=== PATIENT | female | born 1950 | race Caucasian/White ===

== ENCOUNTER 2019-09-02 12:58 | Emergency (ER) | payer MEDICARE, SELFPAY ==
[2019-09-02 13:10] VITALS: BP 129/64; PULSE 66; RESP 16; TEMP 36.2; O2SAT 98
--- NOTE | 2019-09-02 13:23 | ED.URI ---
HPI - URI/Sore Throat General Chief Complaint: Upper Respiratory Infection Stated Complaint: cough/fever Time Seen by Provider: 09/02/19 13:23 Source: patient and RN notes reviewed Mode of arrival: ambulatory Limitations: no limitations History of Present Illness HPI Narrative: 69-year-old female presents with concern for cough. She reports began coughing 5 days ago and had a low-grade fever approximately of 100 degrees 2 to 3 days. Reports coughing fits. She denies current fever, chills, body aches, sweats. Reports mild rhinorrhea and postnasal drainage. Denies sore throat, ear pain, sinus pain, sinus congestion. Denies taking any nimd-qux-bzxlgoh medications. Reports she is currently taking doxycycline 100 mg twice daily for 30 days for an eye infection. MD elicited complaint: cough Related Data Home Medications Medication Instructions Recorded Confirmed alprazolam 09/02/19 difluprednate [Durezol] 09/02/19 doxycycline hyclate 09/02/19 lisinopril 09/02/19 metoprolol succinate PO 09/02/19 trazodone 09/02/19 Allergies Allergy/AdvReac Type Severity Reaction Status Date / Time No Known Allergies Allergy Unverified 02/10/19 09:49 Review of Systems Review of Systems: Narrative: CONSTITUTIONAL: Denies malaise, chills, sweats, or fever. EYES: Denies visual changes, redness, or discharge. ENT: Reports rhinorrhea, postnasal drainage. Denies congestion, sinus pain, otalgia and sore throat. CARDIOVASCULAR: Denies chest pain, palpitations, or edema. RESPIRATORY: Reports cough. Denies dyspnea. GASTROINTESTINAL: Denies abdominal pain, nausea, vomiting, diarrhea SKIN: Denies rash or itching. MUSCULOSKELETAL: Denies myalgia. NEUROLOGIC: Denies headache. All systems reviewed & are unremarkable except as noted in HPI and below [facility] Family History Family History (Updated 06/02/17 @ 15:15 by DOCTOR UNKNOWN) Father Hypertension Cerebrovascular accident Sibling Family history of coronary artery disease Family history of lymphoma Other Diabetes mellitus Family history of arthritis Family history of cardiovascular disease Family history of malignant neoplasm Social History Social History Smoking status: Never smoker Alcohol intake: current Comments At time of signature, agree with nursing past medical, surgical, social and family history. There is no relevant family history pertinent to the presenting complaint Exam Narrative: Exam Narrative: GENERAL: Well-appearing, well-nourished, and in no acute distress. HEAD: Normocephalic EYES: PERRLA, conjunctivae clear ENT: Nares clear, turbinates erythematous, clear discharge. Mucous membranes moist. TM pearly buchanan with dull light reflex bilaterally; no tragal tenderness. Oropharynx not erythematous without lesions. Tonsils not enlarged and without exudate, no drooling, no hoarseness, no trismus. NECK: Supple. No lymphadenopathy CHEST: Clear to auscultation, breath sounds equal. No wheezing, rhonchi, rales, or stridor. No respiratory distress, speaks in full sentences. Cough noted HEART: Regular rate and rhythm. No murmur heard. Normal peripheral pulses. SKIN: Warm, dry, no rash. NEURO: Alert and oriented x3. PSYCH: Normal mood and affect Course Course Emergency Course: Patient is aware of diagnosis, understands and agrees to treatment plan. Anticipatory guidance given. Patient agrees to follow-up as directed and is aware of reasons to seek care at the emergency department. Portions of this record may have been created with voice recognition software Vital Signs Vital signs: Vital Signs Temperature 97.1 F L 09/02/19 13:10 Pulse Rate 66 09/02/19 13:10 Respiratory Rate 16 09/02/19 13:10 Blood Pressure 129/64 09/02/19 13:10 Pulse Oximetry 98 09/02/19 13:10 Temperature 97.1 F L 09/02/19 13:10 Pulse Rate 66 09/02/19 13:10 Respiratory Rate 16 09/02/19 13:10 Blood Pressure 129/64 09/02/19 13:10 Pulse Oximetry 98
== END 2019-09-02 13:41 | disposition home or self-care (01) ==
PROVIDERS: Emergency Provider Nurse Practitioner; PCP Emergency Medicine
DX: J40 Bronchitis, not specified as acute or chronic (principal); I10 Essential (primary) hypertension
CPT/HCPCS: 99213; G0463

== ENCOUNTER 2021-06-19 12:05 | Outpatient (CLI) | payer MEDICARE, SELFPAY ==
--- NOTE | ~2021-06-19 | XR_ITS ---
EXAMINATION: XR chest 2V DATE: 06/19/2021 12:28 INDICATION: Cough, acute bronchitis, COVID four weeks ago TECHNIQUE: PA and lateral views of the chest are obtained. COMPARISON: 09/27/2017 FINDINGS: There are minimal airspace opacities of the lung bases and peripheral aspect of the left up per lung zone. There is no pleural effusion or pneumothorax. The cardiomediastinal silhouette is norm al. There is moderate thoracic spondylosis. IMPRESSION: 1. Minimal airspace opacities of the lung bases and left upper lung zone, possibly pneumonia, acute v ersus resolving. Reviewed, dictated and finalized at location A. D LIFE ASSISTANT IMPRESSION: 1. Minimal airspace opacities of the lung bases and left upper lung zone, possi anika pneumonia, acute versus resolving.
== END 2021-06-19 12:06 | disposition home or self-care (01) ==
LOC: ANHIMG 12:11
PROVIDERS: PCP Emergency Medicine; Visit Provider Emergency Medicine
DX: J20.9 Acute bronchitis, unspecified (principal); R91.8 Other nonspecific abnormal finding of lung field
CPT/HCPCS: 71046

== ENCOUNTER 2021-08-19 11:31 | Emergency (ER) | payer MEDICARE, SELFPAY ==
--- NOTE | ~2021-08-19 | XR_ITS ---
EXAMINATION: XR chest 2V DATE: 08/19/2021 11:54 INDICATION: Shortness of breath. Cough. TECHNIQUE: Frontal and lateral views of the chest were obtained. COMPARISON: Chest 2 views 06/19/21, CT abdomen and pelvis 12/01/2018 FINDINGS: There is no pneumonia, pleural effusion, or pneumothorax. Cardiomegaly is noted. IMPRESSION: 1. Cardiomegaly. Reviewed, dictated and finalized at location A. LED YARN SPOOL STRAIGHTENER IMPRESSION: 1. Cardiomegaly.
[2021-08-19 11:37] VITALS: BP 168/70; PULSE 70; RESP 18; TEMP 36.9; O2SAT 98
--- NOTE | 2021-08-19 11:41 | ED.URI ---
HPI - URI/Sore Throat General Chief Complaint: Upper Respiratory Infection Stated Complaint: COUGH/CONGESTION/SORE THROAT Time Seen by Provider: 08/19/21 11:41 Source: patient Mode of arrival: ambulatory Limitations: no limitations History of Present Illness HPI Narrative: Radha Mendenhall is a 71 yo female with a PMH of HTN, anxiety, [facility] 3 days, runny nose, complaining of fatigue and coughing up yellow mucous. Was vaccinated for COVID; patient had COVID and Covid pneumonia in June Related Data Home Medications Medication Instructions Recorded Confirmed alprazolam 09/02/19 03/26/20 trazodone 09/02/19 03/26/20 Allergies Allergy/AdvReac Type Severity Reaction Status Date / Time lisinopril Allergy Swelling Verified 08/19/21 11:52 of Lip/Tongue/Throat Review of Systems Review of Systems: CONSTITUTIONAL: Denies fever, chills, sweats. EYES: Denies visual changes, redness, discharge. ENT: Denies rhinorrhea, has congestion, sore throat, otalgia. CARDIOVASCULAR: Denies chest pain, palpitations, edema. RESPIRATORY: Denies dyspnea, wheezing,has cough GASTROINTESTINAL: Denies abdominal pain, nausea, vomiting, diarrhea. GENITOURINARY: Denies dysuria, hematuria, abnormal discharge SKIN: Denies rash or itching. NEUROLOGIC: Denies numbness, or focal weakness. PSYCHIATRIC: Denies anxiety or depression. PMFSH Past Medical History Medical History Anxiety Dependence on other enabling machines and devices Essential hypertension KATARINA on CPAP Paroxysmal VT PAT (paroxysmal atrial tachycardia) Family History Family History Father Hypertension Cerebrovascular accident Sibling Family history of coronary artery disease Family history of lymphoma Other Diabetes mellitus Family history of arthritis Family history of cardiovascular disease Family history of malignant neoplasm Social History Social History Smoking status: Never smoker Alcohol intake: current Comments At time of signature, I agree with nursing past medical, surgical, social and family history. There is no relevant family history pertinent to the presenting complaint. Exam Narrative: GENERAL: This is a well-nourished, well-developed patient, in mild distress. HEAD: normocephalic, atraumatic. EYES: Sclera clear/white. Vision is grossly intact. EARS: External ears normal, . Hearing grossly intact. NOSE: External nose normal with nasal discharge, nares without redness, no rhinorrhea. THROAT: Mucous membranes moist, posterior pharynx NECK: Neck supple, non-tender CARDIOVASCULAR:Irregular rate and rhythm without murmurs, gallops, or rubs. RESPIRATORY: Coarse to auscultation. Breath sounds equal bilaterally. No wheezes, rales, or rhonchi. GASTROINTESTINAL: Abdomen soft, non-tender, SKIN: warm, intact with no suspicious lesions or rash, good texture and turgor. NEURO: awake, alert, and oriented to person, place and time. There were no obvious focal neurologic abnormalities. Steady gait EXTREMITIES: Normal range of motion. BACK: Nontender without deformity Course Course Emergency Course: Patient comes with 5 days of cough and that is worsening. She has nasal drainage that she states does not trigger her cough but this morning she woke up with wheezing she has been running which she calls a low-grade fever Chest x-ray shows, cardiomegaly, no pneumonia or pleural effusion or pneumothorax-started on steroids and Tessalon Perles Zithromax codeine cough syrup Level of Care: Express Care Visit Vital Signs Vital signs: Vital Signs Temperature 98.4 F 08/19/21 11:37 Pulse Rate 70 08/19/21 11:37 Respiratory Rate 18 08/19/21 11:37 Blood Pressure 168/70 H 08/19/21 11:37 Pulse Oximetry 98 08/19/21 11:37 Temperature 98.4 F
== END 2021-08-19 12:15 | disposition home or self-care (01) ==
PROVIDERS: Emergency Provider Nurse Practitioner; PCP Emergency Medicine
DX: J40 Bronchitis, not specified as acute or chronic (principal); I10 Essential (primary) hypertension; G47.33 Obstructive sleep apnea (adult) (pediatric); F41.9 Anxiety disorder, unspecified
CPT/HCPCS: 71046; 99213; G0463

== ENCOUNTER 2021-10-28 09:57 | Outpatient (CLI) | payer MEDICARE, SELFPAY ==
--- NOTE | ~2021-10-28 | XR_ITS ---
XR knee LT min 4V DATE: 10/28/2021 11:05 INDICATION: Left knee pain. Osteoarthritis. TECHNIQUE: Standing AP, PA, lateral views. [place] view. COMPARISON: 11/20/2018 knees 10/12/2013 MR left knee FINDINGS: There is moderate loss of height of the medial compartment joint space. There is mild periarticular spurring of the patella. No fracture or dislocation or joint effusion. No periosteal reaction or bone destruction. No radiopaq ue intra-articular loose body or chondrocalcinosis. IMPRESSION: Osteoarthritis at medial and patellofemoral compartments Reviewed, dictated and finalized at location A.
--- NOTE | ~2021-10-28 | XR_ITS ---
EXAMINATION: XR knee RT min 4V DATE: 10/28/2021 11:05 INDICATION: Unspecified osteoarthritis, unspecified site. TECHNIQUE: 4 views of right knee including standing views were obtained. COMPARISON: Right knee radiographs 11/28/2018 FINDINGS: There is varus angulation at the knee. No fracture. There is severe osteoarthritis of media l and patellofemoral compartments and mild osteoarthritis of lateral compartment. There is a moderate -sized knee joint effusion. IMPRESSION: 1. Severe right knee osteoarthritis. 2. Moderate-sized knee joint effusion. Reviewed, dictated and finalized at location A.
--- NOTE | ~2021-10-28 | XR_ITS ---
EXAMINATION: HAND-JUDY ARTHRITIS 3+VIEWS DATE: 10/28/2021 11:05 INDICATION: unspecified osteoarthritis at unspecified site TECHNIQUE: Posteroanterior, lateral, and oblique views of the left and of the right hands as well as a ballcatchers view of both hands were obtained. COMPARISON: 02/22/2008 FINDINGS: Normal alignment at the bilateral hands and wrists. No fracture. Relative symmetric pattern of polyar ticular osteoarthritis, severe at the bilateral first carpometacarpal joints and mild at the wrist, t riscaphe and multiple interphalangeal joints. IMPRESSION: 1. Polyarticular osteoarthritis at the bilateral hands and wrists, severe at the first carpometacarpa l joints and otherwise mild. Reviewed, dictated and finalized at location B. IMPRESSION: 1. Polyarticular osteoarthritis at the bilateral hands and wrists, severe at th e first carpometacarpal joints and otherwise mild.
--- NOTE | ~2021-10-28 | XR_ITS ---
EXAMINATION: XR sacroiliac joints min 3V DATE: 10/28/2021 11:05 INDICATION: Unspecified osteoarthritis at unspecified site. TECHNIQUE: AP and left and right oblique views of the sacroiliac joints were normal. COMPARISON: CT dated 12/01/2018 FINDINGS: Alignment is normal. Mild osteoarthritis at the bilateral sacroiliac joints. A few phleboli ths in the right hemipelvis. Moderate lower lumbar spondylosis. IMPRESSION: 1. Mild bilateral sacroiliac osteoarthritis. Reviewed, dictated and finalized at location B.
--- NOTE | ~2021-10-28 | XR_ITS ---
EXAMINATION: XR lumbar spine min 4V DATE: 10/28/2021 11:05 INDICATION: Unspecified osteoarthritis TECHNIQUE: Anteroposterior, lateral, and bilateral oblique views of the lumbar spine, and cone-down l ateral view of the lumbosacral junction were obtained. COMPARISON: 05/17/2016 FINDINGS: Lumbar dextroscoliosis is noted. There is no fracture. Bone alignment is normal. The verteb ral body heights are maintained. There is mild loss of intervertebral disc space height at L5-S1. Sev ere facet osteoarthritis is present throughout the lumbar spine. IMPRESSION: 1. Severe multilevel facet osteoarthritis. Reviewed, dictated and finalized at location F.
== END 2021-10-28 09:58 | disposition home or self-care (01) ==
LOC: ANHIMG 09:59
PROVIDERS: PCP Emergency Medicine; Visit Provider Internal Medicine
DX: M19.032 Primary osteoarthritis, left wrist (principal); Z71.89 Other specified counseling; Z51.81 Encounter for therapeutic drug level monitoring; Z79.899 Other long term (current) drug therapy; M19.031 Primary osteoarthritis, right wrist; M19.042 Primary osteoarthritis, left hand; M19.041 Primary osteoarthritis, right hand; M47.817 Spondylosis without myelopathy or radiculopathy, lumbosacral region; M25.461 Effusion, right knee; M17.11 Unilateral primary osteoarthritis, right knee
CPT/HCPCS: 72110; 72202; 73130; 73564

== ENCOUNTER 2022-02-22 09:59 | Outpatient (CLI) | payer MEDICARE, SELFPAY ==
--- NOTE | 2022-02-22 11:05 | ECG_ITS ---
Measurements Intervals [place] Rate: 58 P: 37 NH: 140 QRS: 12 QRSD: 90 T: 40 QT: 419 QTc: 412 Interpretive Statements SINUS BRADYCARDIA BASELINE ARTIFACT BORDERLINE ECG COMPARED TO ECG 10/28/2018 19:19:08 SINUS BRADYCARDIA NOW PRESENT Electronically Signed On 02-22-2022 16:29:13 CDT by Gonzales Prado M.D.
[2022-02-22 11:34] LABS: Basophils Percent Auto 0.7 % (0.2-1.2); Eosinophils Absolute Auto 0.2 K/mm3 (0-0.3); Eosinophils Percent Auto 3.6 % (0-4.4); Hemoglobin 13.5 g/dL (12.0-15.0); Immature Granulocyte Absolute 0.01 K/mm3 (0.00-0.031); Immature Granulocyte Percent A 0.2 % (0-0.5); Lymphocytes Absolute Auto 1.17 K/mm3 (0.9-3.2); Mean Corpuscular HGB Conc 31.4 g/dl (32-36); Mean Corpuscular Hemoglobin 27.3 pg (26-34); Mean Platelet Volume 9.8 fl (7.4-10.4); Monocytes Absolute Auto 0.6 K/mm3 (0.1-0.6); Monocytes Percent Auto 10.2 % (2.6-8.5); Neutrophils Absolute Auto 3.6 K/mm3 (1.3-6.7); Neutrophils Percent Auto 64.3 % (45.5-73.1); Platelet Count Result 277 k/mm3 (150-375); Red Blood Count 4.94 M/mm3 (4.2-5.4); Red Cell Distribution Width 13.5 % (11.5-14.5); White Blood Count 5.6 K/mm3 (4.5-10.0)
[2022-02-22 11:39] LABS: Add Urine Microscopic? YES; Appearance Urine Clear (Clear); Bilirubin Urine Negative (Negative); Blood Urine Trace-Intact (Negative); Color Urine Yellow (Yellow); Glucose Urine UA Negative (Negative); Ketones Urine Negative (Negative); Leukocyte Esterase Ur Negative LEU/UL (Negative); Nitrate Urine Negative (Negative); Protein Urine Negative (Negative); pH Urine 6.5 (5.0-9.0)
[2022-02-22 11:42] LABS: INR 1.1; Prothrombin Time 13.9 Seconds (11.1-14.7)
[2022-02-22 11:43] LABS: Albumin Level 4.4 g/dL (3.5-5.1); Anion Gap 7 mmol/L (8-16); Blood Urea Nitrogen 13 mg/dL (7-17); Carbon Dioxide 30 mmol/L (22-30); Chloride 103 mmol/L (98-107); Estimated Glomerular Filt Rate > 60; Glucose 100 mg/dL (65-110); Sodium 140 mmol/L (137-145)
[2022-02-22 11:46] LABS: Urine Cotinine NEGATIVE
[2022-02-22 11:54] LABS: Mucus Urine Rare /lpf; Squamous Epithelial Cell Urine Rare /hpf (Few); WBC Urine 0-3 /hpf
[2022-02-22 12:09] LABS: Hemoglobin A1C 5.5 % (<5.7)
== END 2022-02-22 10:00 | disposition home or self-care (01) ==
LOC: ANHSURGERY 10:04
PROVIDERS: PCP Emergency Medicine; Visit Provider Orthopaedic Surgery
DX: M17.11 Unilateral primary osteoarthritis, right knee (principal); Z01.818 Encounter for other preprocedural examination; R00.1 Bradycardia, unspecified
CPT/HCPCS: 80048; 80307; 81001; 82040; 83036; 85025; 85610; 85730; 86850; 86900; 86901; 87081; 93005

== ENCOUNTER 2022-03-02 10:02 | Outpatient (CLI) | payer MEDICARE, SELFPAY ==
--- NOTE | ~2022-03-02 | NM_ITS ---
EXAMINATION: NM francois stress w perfusion DATE: 03/02/2022 12:31 INDICATION: Dyspnea on exertion. Preoperative evaluation prior to knee surgery. TECHNIQUE: Rest images were obtained following intravenous administration of 10.6 mCi Tc99m tetrofosm in (Myoview). The patient was infused intravenously with Lexiscan (Regadenoson). Then, 32.7 mCi Tc99m tetrofosmin (Myoview) was administered intravenously, and stress images were obtained. Data was nehal nstructed into short axis and horizontal and vertical long axis SPECT images. Gated SPECT images were also obtained. COMPARISON: None. FINDINGS: There is no definite reversible or fixed perfusion abnormality to suggest ischemia or infar ction. There is normal left ventricular chamber size, wall motion and ejection fraction. Left ventr icular ejection fraction measures >70%. IMPRESSION: 1. Normal myocardial perfusion at rest and during stress. 2. Left ventricular ejection fraction measuring >70%. Reviewed, dictated and finalized at location A.
--- NOTE | 2022-03-02 10:05 | EST_ITS ---
Patient Info Name: Radha Mendenhall Age: 71 years : 1950 Gender: Female Ht: 66 in Wt: 250 lbs BSA: 2.35 m2 Exam Date: 03/02/2022 11:21 AM Exam Location: [facility] Stress Patient Status: Outpatient Admit Date: 03/02/2022 Staff Ordering Physician: Toñito Madsen DO Attending Provider: Toñito Madsen DO Exercise Technologist: Cristina Alegre RDCS Exercise Physician: Toñito Madsen DO Exam Type: CA stress francois w NM Study Info Indications R06.9 - Unspecified abnormalities of breathing A regadenoson stress test was performed. Summary 1. 1. Negative lexiscan stress test for ischemic ST changes by ECG criteria. 2. 2. Stable hemodynamics throughout the test. 3. 3. Nuclear scan to follow and will be reported separately. Please correlate with it. 4. 4. Patient informed of the above results. Protocol: Lexiscan Stress ECG Details Stage: REST Duration (min): 0 min : 55 sec HR (bpm): 58 SBP (mmHg): 137 DBP (mmHg): 75 Stage: REST Duration (min): 9 min : 58 sec HR (bpm): 59 SBP (mmHg): 137 DBP (mmHg): 75 Stage: STAGE 1 Duration (min): 0 min : 59 sec HR (bpm): 65 SBP (mmHg): 133 DBP (mmHg): 84 Stage: RECOVERY Duration (min): 1 min : 0 sec HR (bpm): 72 SBP (mmHg): 132 DBP (mmHg): 82 Stage: RECOVERY Duration (min): 2 min : 0 sec HR (bpm): 69 SBP (mmHg): 132 DBP (mmHg): 82 Stage: RECOVERY Duration (min): 3 min : 0 sec HR (bpm): 66 SBP (mmHg): 133 DBP (mmHg): 80 Stage: RECOVERY Duration (min): 3 min : 6 sec HR (bpm): 65 SBP (mmHg): 133 DBP (mmHg): 80 Rest HR: 59 bpm Peak HR: 72 bpm Rest Sys BP: 137 mmHg Peak Sys BP: 133 mmHg Max Pred HR: 151 bpm % Max Pred HR: 48 % Target HR: 128 bpm Max RPP: 9,576 bpm*mmHg Total Time: 1 min : 0 sec Rest Joseph BP: 75 mmHg Peak Joseph BP: 84 mmHg Total Dose: 0.4 mg Resting ECG Sinus bradycardia. Stress ECG No ST changes. Arrhythmias None. Report Signatures
== END 2022-03-02 10:03 | disposition home or self-care (01) ==
PROVIDERS: PCP Emergency Medicine; Visit Provider Internal Medicine Cardiovascular Disease
DX: R06.09 Other forms of dyspnea (principal)
CPT/HCPCS: 78452; 93017; A9502; J2785

== ENCOUNTER 2022-03-03 01:04 | Day surgery (SDC) | payer MEDICARE, SELFPAY ==
[2022-02-22 10:12] VITALS: BMI 39.0
--- NOTE | 2022-02-22 10:49 | PC.NURSE ---
Report to the Outpatient Waiting Room, entrance under the green pavilion located off [facility], at time _0600 on date __03/03/22 . OR Time: ___729 . - You and your visitor will be asked to self-screen and do not enter if you have any COVID symptoms. - Only one visitor and NO children visitors are allowed at this time. - The patient visitor is requested to leave or wait in car when not with patient due to restrictions. - A mask is required within the hospital. Patients may have clear liquids (water, carbonated beverages, clear teas, apple juice) until 3 hours prior to surgery with a maximum of 20 ounces. - No food from midnight until time of surgery - Infants may have breast milk until 4 hours before surgery, infant formula 6 hours prior to surgery. - Children will be allowed to drink immediately following surgery. If applicable, please bring a bottle or sippy cup to assist with drinking. Juice, water, soda, and popsicles are readily available. For infants on formula, please bring formula the day of surgery. Pacifiers are allowed. Take the following medications with a SIP of water the morning of surgery: __DULOXETINE Medications to discontinue per physician ___ALL VITAMINS AND SUPPLEMENTS 3 DAYS PRE OP Date to take last dose_02/27/22 Please no make-up, nail yakut, hairspray, perfume, deodorant, or body powder the day of surgery. No jewelry (including any body piercings) or valuables the day of surgery, leave them at home. Please take a shower or bath the night before, or the morning of, surgery with an antibacterial soap. Wear comfortable, loose fitting clothing. Children are encouraged to wear pajamas. - Jewelry must be removed prior to entering the operating room. Rings and piercings that are not removed may be cut off. - The hospital will not accept responsibility for valuables. - Please leave all valuables, including medications, at home the day of surgery. If you are going home after surgery, a licensed special education bus driver must drive you home. - NO public transportation without another adult. - We recommend that an adult stay with you for 24 hours following discharge. - We also recommend that you do not drive, make important decision, drink alcoholic beverages, or take any drugs that were not prescribed by your health care provider for at least 24 hours after your discharge time. For Pediatric surgeries, we recommend two adults accompany the child home (only one inside the building at this time). Follow any additional instructions given to you from your surgeon. If you or anyone in your household have experienced Covid symptoms in the past week, please notify your surgeon or the nurse liaison at the phone number below for possible testing. VERBAL AND WRITTEN instructions given to __PATIENT and asked if any additional questions and then verbalized understanding. Patient advised to call surgeon office or pre surgery nurse liaison [phone] if any additional questions.
[2022-02-22 11:08] VITALS: BP 167/81; PULSE 58; RESP 18; TEMP 37.3; O2SAT 97
[2022-03-03] VITALS (20 sets, daily range): BP systolic 108–153; BP diastolic 49–74; PULSE 63–75; RESP 12–20; TEMP 36.2–36.8; O2SAT 94–99
--- NOTE | ~2022-03-03 | XR_ITS ---
EXAMINATION: XR knee RT 2V DATE: 03/03/2022 10:48 INDICATION: Right knee arthroplasty. Postop. TECHNIQUE: 2 views of right knee were obtained. COMPARISON: Right knee radiographs 10/28/2021 FINDINGS: There is a total right knee arthroplasty without patellar resurfacing in near-anatomic alig nment. No fracture. There is gas in the knee joint and soft tissues, consistent with recent surgery. Anterior skin zuri are noted. IMPRESSION: 1. Total right knee arthroplasty in near-anatomic alignment. Reviewed, dictated and finalized at location A.
[2022-03-03] MEDS: ACETAMINOPHEN 500 MG TABLET 1000 MG PO (06:43)
[2022-03-03] MEDS: LACTATED RINGERS 1,000 ML 30 ML IV CONT ×2 (06:45→10:34)
[2022-03-03] MEDS: TRANEXAMIC ACID 1,000MG/ISO100 1,000 MG/100 ML BAG 200 MG IVPB (06:55)
--- NOTE | 2022-03-03 07:10 | WPDANESEPPF ---
Anes - Initial Pre Proc Eval Procedure: Operation Date: 03/03/22 07:30 Proposed Procedures p Right Total Knee Arthroplasty - Fabien Antoine MD Date/Time: 03/03/22 07:10 Surgeon: Fabien Antoine MD Pre Op Diagnosis: right knee DJD Patient Data Age: 71 Gender: F Height: 1.7 m Weight: 113.1 kg Last Vital Signs Temp 37.3 C 02/22/22 11:08 Pulse 58 L 02/22/22 11:08 Resp 18 02/22/22 11:08 BP 167/81 H 02/22/22 11:08 Pulse Ox 97 02/22/22 11:08 O2 Del Method Room Air 02/22/22 11:08 Allergies Allergy/AdvReac Type Severity Reaction Status Date / Time latex Allergy Itching Verified 02/24/22 14:52 AND RASH lisinopril Allergy Swelling Verified 02/24/22 14:52 of Lip/Tongue/Throat Home Medications Medication Instructions Recorded Confirmed Type trazodone 150 mg tablet 150 mg PO PRN PRN Insomnia 09/02/19 02/24/22 History metoprolol succinate 25 mg See Rx Instructions .Route 09/28/21 02/24/22 Rx tablet,extended release 24 hr .COMPLEX #90 tabs duloxetine 60 mg capsule,delayed 60 mg PO BID #180 caps 10/29/21 02/24/22 Rx release ascorbic acid (vitamin C) 500 mg 500 mg PO DAILY 02/22/22 02/24/22 History tablet cetirizine 10 mg tablet 10 mg PO DAILY 02/22/22 02/24/22 History ergocalciferol (vitamin D2) 1,250 50,000 unit PO WEEKLY 02/22/22 02/24/22 History mcg (50,000 unit) capsule multivitamin 1 tablet PO DAILY 02/22/22 02/24/22 History chlorhexidine gluconate 4 % 1 applic topical ONCE #237 mL 02/24/22 02/24/22 Rx topical liquid (Hibiclens) Patient hx anesthesia problems: none Family hx anesthesia problems: none Results Review: All pre-operative results and documents have been reviewed as part of the pre-operative evaluation. [facility] Past Medical History Medical History Anxiety CRP elevated Dependence on other enabling machines and devices Essential hypertension Generalized osteoarthritis of multiple sites Inflammatory arthritis (~2019) KATARINA on CPAP Paroxysmal VT PAT (paroxysmal atrial tachycardia) Family History Family History Father Hypertension Cerebrovascular accident Sibling Family history of coronary artery disease Family history of lymphoma Other Diabetes mellitus Family history of arthritis Family history of cardiovascular disease Family history of malignant neoplasm Social History Social History Smoking status: Never smoker Additional smoking assessment comments: DENIES ANY FORM OF TOBACCO USE Alcohol intake: current Drinks per week: 1 Alcohol use details: wine, 3 times a week Living arrangements: with family Spiritual care concerns: No Anes - Eval Final PreProcedure Day of Procedure 03/03/22 07:10 Patient weight: obese Heart: regular rate and rhythm Lungs: clear to auscultation Airway: Mallampati scale class II Neurological: alert and oriented Last oral intake: >/= 8 hours ASA classification: III Emergent: no Anesthetic plan: proceed Anesthesia type and monitoring: general LMA and standard monitoring Results Review: All pre-operative results and documents have been reviewed as part of the pre-operative evaluation. Informed Consent: The patient's anesthetic plan and its attendant risks and benefits were discussed with the patient/family/POA. Questions were solicited and answers provided to the satisfaction of the patient/family/POA.
--- NOTE | 2022-03-03 07:32 | WPDHPUPDATE1 ---
History and Physical Update Update Date/Time: 03/03/22 07:32 History and Physical has been reviewed, including an updated exam of the patient. There are NO changes in the patient's condition. Risks, benefits, and alternatives have been discussed and questions answered. Patient agrees to proceed with procedure.
[2022-03-03] MEDS: ceFAZolin 2 GM/D5W 50 ML 2 GM/50 ML BAG IVPB ×3 (07:45→23:40)
--- NOTE | 2022-03-03 08:26 | WPDANESPNB ---
Anes - Peripheral Nerve Block Date/Time: 03/03/22 08:26 I have discussed with the patient/family/POA the placement of a peripheral nerve block for post-operative pain management, including associated risks, benefits, complications, and side effects. Alternative methods of post-operative analgesia were detailed. Questions were solicited and answers provided to the satisfaction of the patient/family/POA. Time-Out: A pre-procedural Time-Out was completed immediately before starting the procedure and confirmed: Patient Identification, Site, Procedure, Patient Position and the Availability of Requisite Equipment. Clinical Indications: Acute post-operative pain management requested by the operative surgeon. Nerve Block Insertion Note Anes-nerve block: adductor canal right Patient position: supine Skin prep: chlorhexidine Needle: 22 gauge, stimulating, insulated echogenic needle. Needle length: 80 mm Technique: ultrasound Technique comment: mid 2mg [id number] Injectate: bupivacaine 0.5% with epi 5 mcg/ml (30ml no epi) and dexamethasone (mg) (4) Observations: tolerated well Complications: none Procedure start time:: 737 Procedure end time:: 742
--- NOTE | 2022-03-03 09:16 | SUR.OPER ---
Multiple scabs noted to patient's bilateral lower legs, back, and right buttock in pre-op. Patient states these scabs are from flea bites and she has been treated with topical Bactroban. Dr. Antoine examined patient's scabs and okay to proceed. Vanc was ordered and given in OR.
[2022-03-03] MEDS: TRANEXAMIC ACID 1,000 MG/10 ML AMPUL 1000 MG IV PUSH (09:28)
--- NOTE | 2022-03-03 10:43 | W.PM.PROC2 ---
Procedure Note - Detailed Date of Procedure 03/03/22 Pre-op Diagnosis right knee DJD Post-op Diagnosis Same Procedure Performed R TKA Surgeon Fabien Antoine MD Anesthesia General Description of Procedure THE RIGHT KNEE WAS PREPPED AND DRAPED IN THE STERILE FASHION. THERE WAS A 10 DEGREE FLEXION CONTRACTURE. A MIDLINE SKIN INCISION WAS MADE. A MEDIAL PARAPATELLAR ARTHROTOMY WAS MADE. THE PATELLA WAS EVERTED. THERE WAS TRICOMPARTMENT DJD. THERE WAS MINIMAL PATELLA DJD. AN INTRAMEDULLARY HEENA WAS PLACED IN THE FEMUR. A DISTAL FEMORAL CUT WAS MADE IN 5 DEGREES OF VALGUS REMOVING APPROXIMATELY 9 MM OF BONE FROM THE DISTAL FEMUR. THE FEMUR WAS SIZED TO 65. A 65 FEMORAL CUTTING BLOCK WAS PLACED IN 3 DEGREES OF EXTERNAL ROTATION AND IN ALIGNMENT WITH SHRUTHI'S LINE AND THE TRANSEPICONDYLAR AXIS. ANTERIOR POSTERIOR AND CHAMFER CUTS WERE MADE. THE CUTS WERE EXCELLENT. NEXT AN INTRAMEDULLARY CUTTING GUIDE WAS PLACED IN THE TIBIA. A TRANS TIBIAL CUT WAS MADE ALONG THE LONG AXIS OF THE TIBIA. APPROXIMATELY 10 MM OF BONE WAS REMOVED FROM THE HIGH SIDE OF THE TIBIA. THE TIBIA WAS THEN PLANED TO A SMOOTH SURFACE. POSTERIOR FEMORAL OSTEOPHYTES WERE REMOVED FROM THE FEMORAL CONDYLES. A 71 TIBIAL TRIAL WAS PLACED IN ALIGNMENT WITH THE 1/3 MEDIAL ASPECT OF THE TIBIAL TUBERCLE. THEN A 65 FEMORAL TRIAL COMPONENT WAS PLACED. BOTH HAD EXCELLENT FITS. EVENTUALLY A 10 MM CR POLYETHYLENE TRIAL COMPONENT WAS PLACED. THE KNEE WAS TAKEN THROUGH A RANGE OF MOTION. THE KNEE CAME OUT TO FULL EXTENSION. THERE WAS NO ABNORMAL TILT TO THE PATELLA. THERE WAS GOOD A/P AND VARUS/VALGUS STABILITY. THERE WAS NO EXCESSIVE ROLL BACK WITH FLEXION. THE TRIAL COMPONENTS WERE REMOVED. THEN A 65 FEMORAL COMPONENT AND 71 TIBIAL COMPONENT WITH A 14 CR POLYETHYLENE COMPONENT WERE CEMENTED INTO PLACE. ONCE THE CEMENT WAS HARD THE KNEE WAS TAKEN THROUGH A ROM AGAIN AND FOUND TO BE STABLE WITH NO PATELLA TILT NO EXCESSIVE ROLL BACK WITH FLEXION AND GOOD STABILITY WITH COMPLETE AND FULL EXTENSION. THE KNEE WAS IRRIGATED WITH STERILE BETADINE AND WATER FOR ABOUT 3 MINUTES. THE BLEEDERS WERE CAUTERIZED. THE ARTHROTOMY WAS REPAIRED WITH NUMBER 1 VICRYL. THE SUB CUTANEOUS LAYER WITH 2-0 VICRYL AND THE SKIN WITH AWA. THE WOUND WAS WASHED AND A STERILE DRESSING WAS APPLIED. PATIENT WAS EXTUBATED. Estimated Blood Loss -250.0 Pathology None sent Complications No immediate complications Condition Stable Disposition PACU
[2022-03-03] MEDS: KETOROLAC 15 MG/ML VIAL (*BKC) IV PUSH ×3 (14:08→23:41)
[2022-03-03] MEDS: SODIUM CHLORIDE 0.9% IV 1,000 ML 125 ML IV CONT (14:08)
[2022-03-03] MEDS: METOPROLOL SUCCINATE EXT REL 25 MG TABCR BY MOUTH (14:09)
--- NOTE | 2022-03-03 14:26 | ADMGEN ---
This patient, Radha Mendenhall, was admitted to Medical Room 260-. Patient/family oriented to hospital policies and general routines including ID bracelet, bed and alarms, visiting hours, pain management, procedures, bathroom and other care routines, personal items, smoking policy, room service/diet, and visiting hours. Information on how to activate the Rapid Response Team has been discussed. Patient/Family are encouraged to report perceived risks to care and to ask questions if they do not understand what they are told or what they should do.
[2022-03-03] MEDS: SENNA/DOCUSATE SODIUM TABLET 2 TAB PO (16:54)
[2022-03-03] MEDS: ASPIRIN 325 MG ENTERIC TABLET PO (19:47)
[2022-03-04 03:33] VITALS: BP 131/66; PULSE 73; RESP 18; TEMP 36.7; O2SAT 95
[2022-03-04] MEDS: KETOROLAC 15 MG/ML VIAL (*BKC) IV PUSH ×2 (05:15→12:14)
[2022-03-04 05:33] LABS: Basophils Percent Auto 0.2 % (0.2-1.2); Hematocrit 33.9 % (37.0-47.0); Hemoglobin 10.6 g/dL (12.0-15.0); Immature Granulocyte Absolute 0.08 K/mm3 (0.00-0.031); Immature Granulocyte Percent A 0.6 % (0-0.5); Lymphocytes Absolute Auto 1.11 K/mm3 (0.9-3.2); Lymphocytes Percent Auto 8.6 % (18.3-44.2); Mean Corpuscular HGB Conc 31.3 g/dl (32-36); Mean Corpuscular Hemoglobin 27.5 pg (26-34); Mean Corpuscular Volume 87.8 fl (80-100); Monocytes Absolute Auto 1.1 K/mm3 (0.1-0.6); Monocytes Percent Auto 8.7 % (2.6-8.5); Neutrophils Absolute Auto 10.5 K/mm3 (1.3-6.7); Neutrophils Percent Auto 81.9 % (45.5-73.1); Platelet Count Result 234 k/mm3 (150-375); Red Blood Count 3.86 M/mm3 (4.2-5.4); Red Cell Distribution Width 13.2 % (11.5-14.5); White Blood Count 12.9 K/mm3 (4.5-10.0)
[2022-03-04 05:46] LABS: Anion Gap 7 mmol/L (8-16); Blood Urea Nitrogen 14 mg/dL (7-17); Calcium 8.7 mg/dL (8.4-10.2); Carbon Dioxide 30 mmol/L (22-30); Chloride 101 mmol/L (98-107); Estimated CRCL calculation 75 ml/min; Estimated Glomerular Filt Rate > 60; Glucose 111 mg/dL (65-110); Potassium 4.6 mmol/L (3.4-5.0); Sodium 138 mmol/L (137-145)
[2022-03-04 07:23] VITALS: BP 136/54; PULSE 77; RESP 18; TEMP 36.2; O2SAT 95
[2022-03-04] MEDS: ceFAZolin 2 GM/D5W 50 ML 2 GM/50 ML BAG IVPB (08:06)
[2022-03-04] MEDS: ASPIRIN 325 MG ENTERIC TABLET PO (08:10)
[2022-03-04] MEDS: DULoxetine HCL 60 MG CAPSULE.DR PO (08:11)
[2022-03-04] MEDS: SENNA/DOCUSATE SODIUM TABLET 2 TAB PO (08:11)
[2022-03-04] MEDS: LORATADINE 10 MG TABLET PO (08:11)
[2022-03-04 08:12] VITALS: PULSE 70
[2022-03-04] MEDS: MULTIVITAMINS THERAPEUTIC TAB (*BKC) 1 TABLET PO (08:12)
[2022-03-04] MEDS: METOPROLOL SUCCINATE EXT REL 25 MG TABCR BY MOUTH (08:12)
[2022-03-04] MEDS: polyethylene glycoL 3350 17 GM POWD.PACK PO (08:13)
--- NOTE | 2022-03-04 08:15 | WPDANESPN ---
Anes - Prog Note Post-Op Date/Time: 03/04/22 08:15 Cardiovascular status: normal Respiratory status: normal Airway patency: baseline Mental status: baseline Post-Op hydration status: normal Vital Signs: Last Vital Signs Temp 36.2 C L 03/04/22 07:23 Pulse 70 03/04/22 08:12 Resp 18 03/04/22 07:23 BP 136/54 L 03/04/22 07:23 Pulse Ox 95 03/04/22 07:23 O2 Del Method Room Air 03/03/22 20:00 O2 Flow Rate 1 03/03/22 15:22 Pain Score (VAS): 3/10, but well controlled with medication I/O: Intake & Output 03/03/22 03/04/22 03/04/22 23:59 07:59 15:59 Intake Total 50 1600 Output Total 0 Balance 50 1600 Laboratory Tests 03/04/22 05:15 03/04/22 05:15 03/04/22 03/04/22 05:15 05:15 WBC 12.9 H RBC 3.86 L Hgb 10.6 L Hct 33.9 L MCV 87.8 MCH 27.5 MCHC 31.3 L RDW 13.2 Plt Count 234 MPV 10.0 Immature Gran % (Auto) 0.6 H Neut % (Auto) 81.9 H Lymph % (Auto) 8.6 L [place] % (Auto) 8.7 H Eos % (Auto) 0.0 Baso % (Auto) 0.2 Lymph # (Auto) 1.11 [place] # (Auto) 1.1 H Eos # (Auto) 0.0 Baso # (Auto) 0.0 Abs Immat Gran (auto) 0.08 H Absolute Neuts (auto) 10.5 H Absolute Nucleated RBC 0.0 Nucleated RBC % 0.0 Sodium 138 Potassium 4.6 Chloride 101 Carbon Dioxide 30 Anion Gap 7 L BUN 14 Creatinine 0.80 Estim Creat Clear Calc 75 Estimated GFR > 60 Glucose 111 H Calcium 8.7 Post-procedural complaints: none Patient Feedback: Patient satisfied with anesthetic care.
--- NOTE | 2022-03-04 10:09 | PM.PNORT ---
Progress Note: A&P Assessment and Plan (1) S/P total knee arthroplasty: Code(s): Z96.659 - Presence of unspecified artificial knee joint Status: Acute Assessment and Plan: POD #1 : R TKA Continue PT/OT. WBAT. Walker. HIGH FALL RISK. Continue pain control. Ice knee. Protect skin. DVT prophylaxis with Aspirin. SCDs. Incentive Spirometry Use reviewed. Monitor Dressing. Change prior to discharge. Bowel Regimen. Dispo: Home with Home Health pending progress with PT/OT Subjective Subjective Date/Time Seen: 03/04/22 10:09 Post Op day: 1 Principal diagnosis: RIGHT KNEE DJD Interval history: POD #1: Right TKA Patient doing very well. Pain well controlled. No new concerns. Hopeful for discharge home today pending progress with PT/OT. Review of Systems Review of Systems: All systems reviewed & are unremarkable except as noted in HPI and below Constitutional: Constitutional: Denies fever(s) and Denies headache(s) ENT: Denies headache(s) Cardiovascular: Cardiovascular: Denies chest pain, Denies diaphoresis, Denies palpitations and Denies dyspnea Respiratory: Respiratory: Denies dyspnea Gastrointestinal: Gastrointestinal: Denies abdominal pain, Denies constipation, Denies nausea and Denies vomiting Genitourinary: Genitourinary: Reports nocturia and Denies dysuria Musculoskeletal: Musculoskeletal: Reports arthralgias (Right Knee ) and Reports joint swelling (Right Knee ) Neurologic: Denies headache(s) Endocrine: Endocrine: Denies palpitations Exam Const: General: comfortable and no acute distress Resp: Effort & Inspection: normal respiratory effort Cardio: Rate: regular rate Rhythm: regular rhythm GI: GI Palp: Yes Soft to palpation, No Tenderness to palpation present (GI) and No Guarding due to palpation present (GI) Skin: Wounds: wounds noted Other: Incision c/d/i. No surrounding redness/warmth. No hematoma. Mild ecchymosis. No wound dehiscence Neuro: Cognition (Neuro): normal cognition Other: NV intact aside from block. Moves toes. Sensation intact to light touch. +ankle dorsiflexion/plantarflexion. Extrem: Right lower extremity: normal to inspection, knee Details: tenderness (diffuse, mild ) Location: of the patella, swelling (diffuse, consistent with surgical intervention ), abnormal ROM Details: pain with active ROM during, pain with passive ROM during and with range as follows (limited due to recent surgical intervention ); able to extend lower leg actively and ecchymosis (mild ), lower leg (Negative Cristhian's Sign ) Details: normal to inspection; no erythema and no tenderness, ankle (+ankle dorsiflexion/plantarflexion ) Details: normal to inspection, no edema and normal ROM; no tenderness, no swelling and no ecchymosis and foot Details: normal capillary refill, normal to inspection, vascular exam Details: dorsalis pedis pulse present and motor-sensory exam Details: light-touch normal; no tenderness Left lower extremity: normal to inspection Psych: Mental Status: mental status grossly normal Objective Data Vital Signs Vital Signs: Vital Signs - 24 hr 03/03/22 10:34 03/03/22 10:50 03/03/22 11:05 Temperature 36.7 C Pulse Rate 73 70 74 Respiratory Rate 14 12 12 Blood Pressure 127/59 L 116/55 L 124/67 Pulse Oximetry 97 99 99 Oxygen Delivery Simple Face Mask Simple Face Mask Simple Face Mask Oxygen Flow Rate 10 10 10 03/03/22 11:20 03/03/22 11:35 03/03/22 11:50 Temperature Pulse Rate 75 67 70 Respiratory Rate 16 14 14 Blood Pressure 132/68 132/65 111/64 Pulse Oximetry 99 99 98 Oxygen Delivery Simple Face Mask Nasal Cannula Nasal Cannula Oxygen Flow Rate 5 3 3 03/03/22 12:05 03/03/22 12:20 03/03/22 12:35 Temperature Pulse Rate 74 64 65 Respiratory Rate 16 14 18 Blood Pressure 125/66 121/73 121/63 Pulse Oximetry 97 99 99 Oxygen Delivery Nasal Cannula Nasal Cannula Nasal Cannula Oxygen Flow Rate 3 3 3 03/03/22 12:50 03/03/22 13:05 03/03/22
[2022-03-04 11:07] VITALS: BP 134/60; PULSE 67; RESP 18; TEMP 36.9; O2SAT 97
--- NOTE | 2022-03-04 15:40 | PM.DS ---
DS: Admitting Diagnosis Discharge Date 03/04/22 Admitting Diagnosis 03/03/22 DS: Discharge Diagnosis Discharge Diagnosis (1) S/P total knee arthroplasty: Code(s): Z96.659 - Presence of unspecified artificial knee joint Status: Acute Assessment and Plan: POD #1 : R TKA Continue PT/OT. WBAT. Walker. HIGH FALL RISK. Continue pain control. Ice knee. Protect skin. DVT prophylaxis with Aspirin. SCDs. Incentive Spirometry Use reviewed. Monitor Dressing. Change prior to discharge. Bowel Regimen. Dispo: Home with Home Health pending progress with PT/OT DS: Summary Hospital Course Reason for hospitalization: Right Knee DJD Hospital Course: 71-year-old female admitted status post right total knee arthroplasty for postoperative medical management, pain control and mobilization with physical and occupational therapy. Patient progressed very well on postop day 1. Pain well controlled. She has been cleared by Physical therapy to be discharged home with home health at this time. She will be discharged home and will follow up in the outpatient orthopedic clinic in approximately 3 weeks. All postop instructions reviewed with the patient today. Status at Discharge Functional status at discharge: uses cane/walker Overall status at discharge: patient is progressing back to baseline Time Spent with Patient Time attestation: Total time spent providing and/or coordinating discharge services: Exam Const: General: comfortable and no acute distress Resp: Effort & Inspection: normal respiratory effort Cardio: Rate: regular rate Rhythm: regular rhythm Skin: Wounds: wounds noted Other: Incision c/d/i. No surrounding redness/warmth. No hematoma. Mild ecchymosis. No wound dehiscence Neuro: Cognition (Neuro): normal cognition Other: NV intact aside from block. Moves toes. Sensation intact to light touch. +ankle dorsiflexion/plantarflexion. Extrem: Right lower extremity: normal to inspection, knee Details: tenderness (diffuse, mild ) Location: of the patella, swelling (diffuse, consistent with surgical intervention ), abnormal ROM Details: pain with active ROM during, pain with passive ROM during and with range as follows (limited due to recent surgical intervention ); able to extend lower leg actively and ecchymosis (mild ), lower leg (Negative Cristhian's Sign ) Details: normal to inspection; no erythema and no tenderness, ankle (+ankle dorsiflexion/plantarflexion ) Details: normal to inspection, no edema and normal ROM; no tenderness, no swelling and no ecchymosis and foot Details: normal capillary refill, normal to inspection, vascular exam Details: dorsalis pedis pulse present and motor-sensory exam Details: light-touch normal; no tenderness Left lower extremity: normal to inspection Psych: Mental Status: mental status grossly normal DS: Data Data Completed and Pending Labs on day of discharge: Labs from last 24 hours 03/04/22 03/04/22 05:15 05:15 WBC 12.9 H RBC 3.86 L Hgb 10.6 L Hct 33.9 L MCV 87.8 MCH 27.5 MCHC 31.3 L RDW 13.2 Plt Count 234 MPV 10.0 Immature Gran % (Auto) 0.6 H Neut % (Auto) 81.9 H Lymph % (Auto) 8.6 L [place] % (Auto) 8.7 H Eos % (Auto) 0.0 Baso % (Auto) 0.2 Lymph # (Auto) 1.11 [place] # (Auto) 1.1 H Eos # (Auto) 0.0 Baso # (Auto) 0.0 Abs Immat Gran (auto) 0.08 H Absolute Neuts (auto) 10.5 H Absolute Nucleated RBC 0.0 Nucleated RBC % 0.0 Sodium 138 Potassium 4.6 Chloride 101 Carbon Dioxide 30 Anion Gap 7 L BUN 14 Creatinine 0.80 Estim Creat Clear Calc 75 Estimated GFR > 60 Glucose 111 H Calcium 8.7 Discharge Plan Discharge Patient Disposition: Home Health Service Discharge Instructions: Post Op Total Knee Replacement Instructions Dr. Fabien Antoine [phone] Your dressing will be changed prior to your discharge. You will be sent home with one additional dressing to be changed on post op da
== END 2022-03-04 16:27 | disposition home health service (06) ==
LOC: ANHSURGERY 06:19 → ANH2MED 13:23
PROVIDERS: PCP Emergency Medicine; Visit Provider Orthopaedic Surgery
PROC: (CPT 27447; principal; 2022-03-03 07:30)
DX: M17.11 Unilateral primary osteoarthritis, right knee (principal); G89.18 Other acute postprocedural pain; I10 Essential (primary) hypertension; I47.1 Supraventricular tachycardia; G47.33 Obstructive sleep apnea (adult) (pediatric); F41.9 Anxiety disorder, unspecified; E66.9 Obesity, unspecified; Z68.38 Body mass index [BMI] 38.0-38.9, adult
CPT/HCPCS: 27447; 64447; 36415; 73560; 80048; 80307; 81001; 82040; 83036; 85025; 85610; 85730; 86850; 86900; 86901; 87081; 93005; 97110; 97116; 97161; 97165; 97530; 97535; A9270; C1713; C1776; J0171; J0690; J1100; J1170; J1885; J2250; J2270; J2405; J2704; J2795; J3010; J3370; J7030; J7120

== ENCOUNTER 2022-04-19 22:33 | Observation (INO) | payer MEDICARE, SELFPAY ==
--- NOTE | ~2022-04-19 | XR_ITS ---
EXAM: XR knee RT 3V DATE: 04/19/2022 22:50 HISTORY: RECENT KNEE REPLACEMENT, FELT POP IN KNEE TONIGHT,CANNOT W/B . COMPARISON: 03/25/2022. FINDINGS: Uncomplicated right knee arthroplasty Normal mineralization. No fracture. High positioned p atella, a new finding. No lytic or blastic lesion. Joint spaces are maintained. No erosion or periost eal change. Large volume knee joint fluid. IMPRESSION: No osseous fracture. High positioned patella, possibly related to patellar tendon injury. No hardware related complication. Large right knee joint effusion. Reviewed, dictated and finalized at location K. IMPRESSION: No osseous fracture. High positioned patella, possibly related to p atellar tendon injury. No hardware related complication. Large right knee joint effusion.
[2022-04-19 22:35] VITALS: BP 121/103; PULSE 72; RESP 16; TEMP 36.6; O2SAT 99
--- NOTE | 2022-04-19 22:36 | ED.EXTPRO ---
HPI - Extremity Problem General Chief complaint: Extremity Problem,Nontraumatic <Naveed Walters APRN - Last Filed: 04/20/22 00:00> Stated complaint: RIGHT KNEE 'POPPED' S/P TKR 6 WEEKS AGO <Naveed Walters APRN - Last Filed: 04/20/22 00:00> Time Seen by Provider: 04/19/22 22:34 <Naveed Walters APRN - Last Filed: 04/20/22 00:00> History of Present Illness HPI Narrative: 71-year-old female who is 6 weeks post right total knee replacement presents to the emergency room for right knee pain. Patient states that she was stood up from the toilet and heard a pop in her right knee. Reports that she was unable to ambulate following the injury. <Naveed Walters APRN - Last Filed: 04/20/22 00:00> Related Data Home medications: Home Medications Medication Instructions Recorded Confirmed trazodone 150 mg tablet 150 mg PO PRN PRN Insomnia 09/02/19 03/25/22 ascorbic acid (vitamin C) 500 mg 500 mg PO DAILY 02/22/22 03/25/22 tablet cetirizine 10 mg tablet 10 mg PO DAILY 02/22/22 03/25/22 ergocalciferol (vitamin D2) 1,250 50,000 unit PO WEEKLY 02/22/22 03/25/22 mcg (50,000 unit) capsule multivitamin 1 tablet PO DAILY 02/22/22 03/25/22 <Naveed Walters APRN - Last Filed: 04/20/22 00:00> Allergies/Adverse reactions: Allergies Allergy/AdvReac Type Severity Reaction Status Date / Time latex Allergy Itching Verified 04/01/22 13:23 AND RASH lisinopril Allergy Swelling Verified 04/01/22 13:23 of Lip/Tongue/Throat <Naveed Walters APRN - Last Filed: 04/20/22 00:00> Review of Systems Review of Systems: CONSTITUTIONAL: Denies fever, chills, or sweats. EYES: Denies visual changes, redness, or discharge. ENT: Denies rhinorrhea, congestion, sore throat, or otalgia. CARDIOVASCULAR: Denies chest pain, palpitations, or edema. RESPIRATORY: Denies cough or dyspnea. GASTROINTESTINAL: Denies abdominal pain, nausea, vomiting, or diarrhea. GENITOURINARY: Denies dysuria or hematuria. SKIN: Denies rash or itching. MUSCULOSKELETAL: Reports right knee pain NEUROLOGIC: Denies headache, numbness, dizziness, or weakness. PSYCHIATRIC: Denies anxiety or depression. <Naveed Walters APRN - Last Filed: 04/20/22 00:00> PMFSH Past Medical History Medical History: Medical History Anxiety CRP elevated Dependence on other enabling machines and devices Essential hypertension Generalized osteoarthritis of multiple sites Inflammatory arthritis (~2019) KATARINA on CPAP Paroxysmal VT PAT (paroxysmal atrial tachycardia) <Naveed Walters APRN - Last Filed: 04/20/22 00:00> Surgical History Surgical History: Surgical History S/P total knee arthroplasty <Naveed Walters APRN - Last Filed: 04/20/22 00:00> Family History Family History: Family History Father Hypertension Cerebrovascular accident Sibling Family history of coronary artery disease Family history of lymphoma Other Diabetes mellitus Family history of arthritis Family history of cardiovascular disease Family history of malignant neoplasm <Naveed Walters APRN - Last Filed: 04/20/22 00:00> Social History Social History: Social History Smoking status: Never smoker Additional smoking assessment comments: DENIES ANY FORM OF TOBACCO USE Alcohol intake: current Drinks per week: 2 Alcohol use details: wine, 3 times a week Substance use: never Substance use type: does not use Spiritual care concerns: No <Naveed Walters APRN - Last Filed: 04/20/22 00:00> Exam Narrative: GENERAL: Well-appearing, well-nourished, no physical limitations, and in no acute distress. HEAD: Normocephalic, atraumatic. EYES: Conjunctivae normal, PERRLA and EOMI. CHEST: Clear to auscultation. No
[2022-04-19] MEDS: HYDROcodone/acetaminophen (*CRX) 5-325 MG TABLET 1 TAB PO (22:46)
[2022-04-19 22:47] VITALS: O2SAT 100
[2022-04-19 23:10] VITALS: O2SAT 100
[2022-04-19 23:16] VITALS: BP 156/64; O2SAT 100
[2022-04-19 23:58] VITALS: O2SAT 100
[2022-04-20] VITALS (35 sets, daily range): BP systolic 119–159; BP diastolic 66–90; PULSE 65–87; RESP 16–18; TEMP 36.6–37.6; O2SAT 96–100
[2022-04-20 00:34] LABS: SARS-CoV-2 RNA PCR Negative
[2022-04-20 05:29] LABS: Basophils Absolute Auto 0.1 K/mm3 (0.0-0.1); Basophils Percent Auto 0.5 % (0.2-1.2); Eosinophils Absolute Auto 0.1 K/mm3 (0-0.3); Eosinophils Percent Auto 1.3 % (0-4.4); Hematocrit 39.5 % (37.0-47.0); Hemoglobin 12.2 g/dL (12.0-15.0); Immature Granulocyte Absolute 0.03 K/mm3 (0.00-0.031); Immature Granulocyte Percent A 0.3 % (0-0.5); Lymphocytes Absolute Auto 1.97 K/mm3 (0.9-3.2); Lymphocytes Percent Auto 20.1 % (18.3-44.2); Mean Corpuscular HGB Conc 30.9 g/dl (32-36); Mean Corpuscular Hemoglobin 26.6 pg (26-34); Mean Corpuscular Volume 86.2 fl (80-100); Mean Platelet Volume 9.1 fl (7.4-10.4); Monocytes Absolute Auto 0.8 K/mm3 (0.1-0.6); Monocytes Percent Auto 8.5 % (2.6-8.5); Neutrophils Absolute Auto 6.8 K/mm3 (1.3-6.7); Neutrophils Percent Auto 69.3 % (45.5-73.1); Platelet Count Result 368 k/mm3 (150-375); Red Blood Count 4.58 M/mm3 (4.2-5.4); Red Cell Distribution Width 13.7 % (11.5-14.5); White Blood Count 9.8 K/mm3 (4.5-10.0)
[2022-04-20 05:39] LABS: Alanine Aminotransferase 19 U/L (6-35); Albumin Level 4.2 g/dL (3.5-5.1); Alkaline Phosphatase 91 U/L (38-126); Anion Gap 9 mmol/L (8-16); Aspartate Amino Transferase 35 U/L (14-36); Bilirubin,Total 0.5 mg/dL (0.2-1.3); Blood Urea Nitrogen 14 mg/dL (7-17); Calcium 9.5 mg/dL (8.4-10.2); Carbon Dioxide 29 mmol/L (22-30); Chloride 103 mmol/L (98-107); Estimated CRCL calculation 84 ml/min; Estimated Glomerular Filt Rate > 60; Glucose 113 mg/dL (65-110); Sodium 141 mmol/L (137-145)
--- NOTE | 2022-04-20 06:54 | ADMGEN ---
This patient, Radha Mendenhall, was admitted to [facility] Room 303-01. Patient/family oriented to hospital policies and general routines including ID bracelet, bed and alarms, visiting hours, pain management, procedures, bathroom and other care routines, personal items, smoking policy, room service/diet, and visiting hours. Information on how to activate the Rapid Response Team has been discussed. Patient/Family are encouraged to report perceived risks to care and to ask questions if they do not understand what they are told or what they should do.
--- NOTE | 2022-04-20 09:59 | PM.PNORT ---
Subjective Subjective Date/Time Seen: 04/20/22 09:59 Objective Data Vital Signs Vital Signs: Vital Signs - 24 hr 04/19/22 22:35 04/19/22 22:47 04/19/22 23:10 Temperature 36.6 C Pulse Rate 72 Respiratory Rate 16 Blood Pressure 121/103 H Pulse Oximetry 99 100 100 Oxygen Delivery Room Air 04/19/22 23:16 04/19/22 23:58 04/20/22 00:00 Temperature Pulse Rate Respiratory Rate Blood Pressure 156/64 H Pulse Oximetry 100 100 100 Oxygen Delivery 04/20/22 00:15 04/20/22 00:47 04/20/22 01:12 Temperature Pulse Rate Respiratory Rate Blood Pressure Pulse Oximetry 100 96 97 Oxygen Delivery 04/20/22 01:15 04/20/22 01:30 04/20/22 01:45 Temperature Pulse Rate Respiratory Rate Blood Pressure Pulse Oximetry 98 98 98 Oxygen Delivery 04/20/22 02:00 04/20/22 02:15 04/20/22 02:30 Temperature Pulse Rate Respiratory Rate Blood Pressure Pulse Oximetry 98 99 99 Oxygen Delivery 04/20/22 02:45 04/20/22 03:00 04/20/22 03:18 Temperature Pulse Rate Respiratory Rate Blood Pressure Pulse Oximetry 100 99 96 Oxygen Delivery 04/20/22 03:19 04/20/22 03:30 04/20/22 03:31 Temperature Pulse Rate Respiratory Rate Blood Pressure 153/72 H 150/66 H Pulse Oximetry 98 98 97 Oxygen Delivery 04/20/22 03:45 04/20/22 03:46 04/20/22 03:47 Temperature Pulse Rate Respiratory Rate Blood Pressure 119/90 Pulse Oximetry 99 100 99 Oxygen Delivery 04/20/22 04:00 04/20/22 04:01 04/20/22 04:16 Temperature Pulse Rate Respiratory Rate Blood Pressure 150/73 H 154/69 H Pulse Oximetry 100 99 100 Oxygen Delivery 04/20/22 04:17 04/20/22 04:30 04/20/22 04:31 Temperature Pulse Rate Respiratory Rate Blood Pressure 158/69 H Pulse Oximetry 100 98 100 Oxygen Delivery 04/20/22 04:45 04/20/22 05:00 04/20/22 05:15 Temperature Pulse Rate Respiratory Rate Blood Pressure Pulse Oximetry 100 100 99 Oxygen Delivery 04/20/22 05:31 04/20/22 05:48 04/20/22 06:12 Temperature Pulse Rate Respiratory Rate Blood Pressure Pulse Oximetry 98 100 100 Oxygen Delivery 04/20/22 06:50 Temperature 36.6 C Pulse Rate 65 Respiratory Rate 16 Blood Pressure 146/66 H Pulse Oximetry 100 Oxygen Delivery Meds/Results Medications: Active Medications Generic Name Dose Route Start Last Admin Trade Name Freq PRN Reason Stop Dose Admin Acetaminophen 500 mg 04/20/22 09:06 Acetaminophen 500 Mg Tablet PO Q4H PRN Mild Pain (1-3) or Fever Hydrocodone Bitart/Acetaminophen 1 tab 04/20/22 09:06 Hydrocodone/Acetaminophen (*Crx) 5-325 Mg Tablet PO Q4H PRN Pain Rated 4-6 Hydrocodone Bitart/Acetaminophen 1 tab 04/20/22 09:07 Hydrocodone/Acetaminophen (*Crx) 7.5-325 Mg Tablet PO Q6H PRN Pain Rated 7-10 Ascorbic Acid 500 mg 04/20/22 09:00 Ascorbic Acid 500 Mg Tablet PO DAILY DIMA Diazepam 5 mg 04/20/22 08:31 Diazepam (*Crx) 5 Mg Tablet PO Q8H PRN Spasms Duloxetine HCl 60 mg 04/20/22 09:00 Duloxetine Hcl 60 Mg Capsule.Dr PO BID DIMA Ergocalciferol 50,000 units 04/25/22 09:00 Ergocalciferol 50,000 Units Capsule PO [place]@0900 DIMA Loratadine 10 mg 04/20/22 09:00 Loratadine 10 Mg Tablet PO 05/20/22 08:59 DAILY DIMA Metoprolol Succinate 25 mg 04/20/22 21:00 Metoprolol Succinate Ext Rel 25 Mg Tabcr PO HS [facility] Miscellaneous Information 0 each 04/20/22 00:01 The Linked Order To The Duloxetine Says Pt Takes It Daily In Comment Section- But It Is Or XX 05/20/22 00:00 CLARIFY DIMA Multivitamins Therapeutic 1 tablet 04/20/22 09:00 Multivitamins Therapeutic Tab (*Bkc) PO DAILY DIMA Trazodone HCl 150 mg 04/20/22 08:31 Trazodone Hcl 50 Mg Tablet PO HS PRN Insomnia Radiology Results: ITS Impressions Knee X-Ray
--- NOTE | 2022-04-20 10:06 | PM.IMHP ---
H&P: HPI History of Present Illness Date/Time: 04/20/22 10:06 Chief Complaint: Right Knee Pain s/p TKA Narrative: 71-year-old female admitted s/p right TKA injury 7 weeks post op. the patient underwent a right total knee arthroplasty [address] Antoine. She has been recovering well up until last night. She states that she went to the restroom and when she went to stand up she felt a pop. She was unable to bear weight on the right lower extremity or move her right lower extremity to ambulate. EMS was called and patient was transferred to the emergency room for further evaluation. Radiographs in the emergency room revealed a high positioned patella, likely related to patellar tendon injury as well as large knee joint effusion. No evidence of hardware abnormalities. Patient admitted to the Orthopedic Service for further evaluation, pain control and possible surgical intervention. Review of Systems Constitutional: Constitutional: Reports no additional constitutional complaints, Denies chills, Denies fatigue, Denies fever(s), Denies headache(s) and Denies weakness Eyes: Eyes: Denies change in vision ENT: Reports Normal hearing present and Denies headache(s) Cardiovascular: Cardiovascular: Denies chest pain and Denies dyspnea Respiratory: Respiratory: Denies cough, Denies dyspnea and Denies wheezing Gastrointestinal: Gastrointestinal: Denies constipation, Denies diarrhea, Denies nausea and Denies vomiting Genitourinary: Genitourinary: Denies hematuria, Denies dysuria and Denies urinary urgency Musculoskeletal: Musculoskeletal: Reports as per HPI, Denies numbness and Denies tingling Integumentary/Breasts: Skin/Breast: Reports as per HPI Neurologic: Reports as per HPI, Reports Normal hearing present, Denies headache(s), Denies numbness, Denies tingling and Denies weakness Psychiatric: Psychiatric: Reports no additional psychiatric complaints Endocrine: Endocrine: Reports no additional endocrine complaints and Denies fatigue Hematologic/Lymphatic: Hematologic/Lymphatic: Reports no additional hematologic/lymphatic complaints Allergic/Immunologic: Allergic/Immunologic: Reports no additional allergic/immunologic complaints and Denies wheezing PMFSH Past Medical History Medical History (Updated 04/20/22 @ 11:18 by RODRÍGUEZ Gaona) Anxiety CRP elevated Dependence on other enabling machines and devices Essential hypertension Generalized osteoarthritis of multiple sites Inflammatory arthritis (~2019) KATARINA on CPAP Paroxysmal VT PAT (paroxysmal atrial tachycardia) Patellar tendon rupture Surgical History Surgical History S/P total knee arthroplasty Family History Family History Father Hypertension Cerebrovascular accident Sibling Family history of coronary artery disease Family history of lymphoma Other Diabetes mellitus Family history of arthritis Family history of cardiovascular disease Family history of malignant neoplasm Social History Social History Smoking status: Never smoker Additional smoking assessment comments: DENIES ANY FORM OF TOBACCO USE Alcohol intake: current Drinks per week: 2 Alcohol use details: wine, 3 times a week Substance use: never Substance use type: does not use Spiritual care concerns: No Has the Lack of Transportation Kept You From Medical Appointments or From Getting Medications?: No Within the Past 12 Months, Were You Worried Whether Your Food Would Run Out Before You Got Money to Buy More?: Never True What is Your Housing Situation Today?: I Have Housing Are You Worried That in the Next 2 Months, You May Not Have Your Own Housing to Live In?: No Do You Have Trouble Paying Your Heating Or Electricity Bill?: No Do You Have Trouble Paying For Medicines?: No Are You Currently Unemploy
[2022-04-20] MEDS: MULTIVITAMINS THERAPEUTIC TAB (*BKC) 1 TABLET PO (13:08)
[2022-04-20] MEDS: LORATADINE 10 MG TABLET PO (13:08)
[2022-04-20] MEDS: ASCORBIC ACID 500 MG TABLET PO (13:08)
--- NOTE | 2022-04-20 13:52 | PCPTNOTE ---
pt refused PT, stated knee is hurting too bad and wants to see Dr Antoine; will not do PT until she sees him; has immobilizer and walker in room;
[2022-04-20] MEDS: diazePAM (*CRX) 5 MG TABLET PO (14:12)
--- NOTE | 2022-04-20 15:40 | PCOTNOTE ---
Attempted to see pt. for OT, per nursing, pt refused PT, stated knee is hurting too bad and wants to see Dr Antoine; will not participate in therapy until she sees him; has immobilizer and walker in room; Nursing aware. Following
[2022-04-20] MEDS: METOPROLOL SUCCINATE EXT REL 25 MG TABCR PO (20:44)
[2022-04-20] MEDS: MELATONIN 3 MG TABLET PO (20:44)
[2022-04-21 06:00] VITALS: BP 158/79; PULSE 81; RESP 18; TEMP 36.5; O2SAT 95
[2022-04-21] MEDS: diazePAM (*CRX) 5 MG TABLET PO ×2 (06:34→22:48)
[2022-04-21] MEDS: HYDROcodone/acetaminophen (*CRX) 5-325 MG TABLET 1 TAB PO ×2 (06:36→13:46)
[2022-04-21] MEDS: ASCORBIC ACID 500 MG TABLET PO (08:26)
[2022-04-21] MEDS: MULTIVITAMINS THERAPEUTIC TAB (*BKC) 1 TABLET PO (08:26)
[2022-04-21] MEDS: LORATADINE 10 MG TABLET PO (08:26)
[2022-04-21] MEDS: DULoxetine HCL 60 MG CAPSULE.DR PO (10:39)
[2022-04-21 14:00] VITALS: BP 154/72; PULSE 70; RESP 18; TEMP 36.8; O2SAT 98
--- NOTE | 2022-04-21 16:54 | PM.PNORT ---
Progress Note: A&P Assessment and Plan (1) Injury of knee, right: Code(s): S89.91XA - Unspecified injury of right lower leg, initial encounter Status: Acute (2) Patellar tendon rupture: Code(s): S86.819A - Strain of other muscle(s) and tendon(s) at lower leg level, unspecified leg, initial encounter Status: Acute Assessment and Plan: DELFINA IS HERE FOR S/P RIGHT KNEE INJURY AND SUBSEQUENT PATELLA TENDON INJURY. SHE WILL NEED REPAIR/RECONSTRUCTION OF THE PATELLA TENDON. OUR IMMEDIATE GOAL IS TO GET HER MOBILE AND COMFORTABLE. SHE WILL BE IN A KNEE IMMOBILIZER AND SHE MAY BE TOE TOUCH WEIGHT BEARING. SHE HAD SOME PROGRESS WITH PT TODAY BUT SHE IS STILL UNABLE TO AMBULATE WITHOUT ASSISTANCE.. SHE WILL REQUIRE AT LEAST ONE MORE DAY OF PT. SHE WILL BE REVALUATED TOMORROW. TODAY WE ASPIRATED THE RIGHT KNEE TO IMPROVE HER COMFORT. THE RISKS OF ASPIRATION WERE REVIEWED INCLUDING BUT NOT LIMITED TO SKIN COLOR CHANGES, ALLERGIC REACTION, CONTINUED PAIN OR DYSFUNCTION. SPECIFIC RISKS OF THE PROCEDURE INCLUDING DEEP INFECTION OR SOFT TISSUE RUPTURE OR RECURRENCE OF SYMPTOMS REVIEWED. (3) S/P total knee arthroplasty: Code(s): Z96.659 - Presence of unspecified artificial knee joint Status: Acute Subjective Subjective Date/Time Seen: 04/21/22 16:54 RIGHT KNEE PATELLA TENDON RUPTURE AFTER 8 WEEKS POSTOP KNEE REPLACEMENT. SHE DOES NOT REPORT ANY SIGNIFICANT TRAUMA. 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 SHE TRIED TO SCHEDULE PT 3 WEEKS POST OP. SHE WAS OFF OF HER WALKER AT ABOUT 3 WEEKS POSTOP ACCORDING TO THE PATIENT. SHE WAS DOING VERY WELL WITH NO PAIN AND GOOD AMBULATION. SHE NOW HAS MODERATE PAIN WITH FLEXION AND SHE IS UNABLE TO PREFORM A SLR. XRAYS SHOW SUPERIOR TRANSLATION OF THE RIGHT PATELLA CONSISTENT WITH RIGHT PATELLA TENDON RUPTURE. OUR GOAL IS TO GET HER STABLE AND MOBILE. SHE WILL NEED TO RETURN TO THE OR FOR REPAIR OF THE TENDON. Exam Extrem: Other: VSS AFEBRILE. RIGHT KNEE HEMARTHROSIS. THERE IS NO SIGN OF INFECTION AND HER WOUND IS WELL HEALED. SHE HAS A LARGE HEME ARTHROSIS. SHE IS UNABLE TO PREFORM A SLR. SHE IS ABLE TO FLEX THE KNEE WITH MINIMAL PAIN. SHE IS OTHERWISE NV INTACT, CALF IS SOFT NON TENDER. GENEVA IS NEGATIVE, THIGH IS SOFT NON TENDER. THE KNEE IS STABLE TO VARUS/VALGUS STRESS IN EXTENSION. IN FLEXION SHE HAS INSTABILITY. Objective Data Vital Signs Vital Signs: Vital Signs - 24 hr 04/20/22 20:44 04/20/22 22:00 04/20/22 20:00 Temperature 37.6 C H Pulse Rate 87 85 Respiratory Rate 16 Blood Pressure 159/75 H Pulse Oximetry 100 Oxygen Delivery Room Air 04/21/22 06:00 04/21/22 08:35 04/21/22 08:56 Temperature 36.5 C Pulse Rate 81 Respiratory Rate 18 Blood Pressure 158/79 H Pulse Oximetry 95 Oxygen Delivery Room Air Room Air 04/21/22 08:00 04/21/22 14:00 Temperature 36.8 C Pulse Rate 70 Respiratory Rate 18 Blood Pressure 154/72 H Pulse Oximetry 98 Oxygen Delivery Room Air Intake/Output Intake/Output: Intake & Output 04/18/22 04/19/22 04/20/22 04/21/22 23:59 23:59 23:59 23:59 Intake Total 780 820 Output Total 850 Balance -70 820 Meds/Results Medications: Active Medications Generic Name Dose Route Start Last Admin Trade Name Freq PRN Reason Stop Dose Admin Acetaminophen 500 mg 04/20/22 09:06 Acetaminophen 500 Mg Tablet PO Q4H PRN Mild Pain (1-3) or Fever Hydrocodone Bitart/Acetaminophen 1 tab 04/20/22 09:06 04/21/22 13:46 Hydrocodone/Acetaminophen (*Crx) 5-325 Mg Tablet PO 1 tab Q4H PRN Administration Pain Rated 4-6 Hydrocodone Bitart/Acetaminophen 1 tab 04/20/22 09:07 Hydrocodone/Acetaminophen (*Crx) 7.5-325 Mg Tablet PO Q6H PRN Pain Rated 7-10 Ascorbic Acid 500 mg 04/20/22 09:00 04/21/22 08:26 Ascorbic Acid 500 Mg Tablet PO 500 mg DAILY DIMA Administration Diazep
[2022-04-21 21:22] VITALS: PULSE 70
[2022-04-21] MEDS: METOPROLOL SUCCINATE EXT REL 25 MG TABCR PO (21:22)
[2022-04-21] MEDS: MELATONIN 3 MG TABLET PO (21:22)
[2022-04-21 21:48] VITALS: BP 140/69; PULSE 81; RESP 18; TEMP 37; O2SAT 98
[2022-04-22 05:35] VITALS: BP 145/76; PULSE 70; RESP 17; TEMP 36.9; O2SAT 95
[2022-04-22] MEDS: MULTIVITAMINS THERAPEUTIC TAB (*BKC) 1 TABLET PO (08:18)
[2022-04-22] MEDS: ASCORBIC ACID 500 MG TABLET PO (08:18)
[2022-04-22] MEDS: LORATADINE 10 MG TABLET PO (08:18)
[2022-04-22] MEDS: DULoxetine HCL 60 MG CAPSULE.DR PO (09:16)
--- NOTE | 2022-04-22 09:31 | PM.PNORT ---
Progress Note: A&P Assessment and Plan (1) Patellar tendon rupture: Code(s): S86.819A - Strain of other muscle(s) and tendon(s) at lower leg level, unspecified leg, initial encounter Status: Acute Assessment and Plan: History, exam and radiographs reviewed with the patient once again. 7 weeks s/p right TKA, now with patella tendon rupture which occurred at home when going to stand up off of the toilet. Patient has been seen and evaluated by Dr. Antoine. Patient underwent an aspiration on 04/[address] Antoine with good relief of pain and swelling. Currently tolerating knee immobilizer well, slow progress with PT/OT. Per Dr. Antoine, we will advance to TTWB at this time. Walker at all times. Pain control. Ice. We will plan to refer the patient to Dr. Hargrove for surgical work up for patella tendon repair. Referral process initiated. Will update patient with appointment time prior to discharge if available. Once patient is able to tolerate PT/OT with current restrictions, she will be discharge home while awaiting surgical decision making by Dr. Hargrove in [place]. (2) S/P total knee arthroplasty: Code(s): Z96.659 - Presence of unspecified artificial knee joint Status: Acute Assessment and Plan: 7 weeks s/p right TKA. Previously doing well prior to incident, now with patella tendon rupture. Time Spent With Patient Time: Reviewed current case with Dr. Antoine. No further recommendations at this time. Subjective Subjective Date/Time Seen: 04/22/22 09:31 Interval history: Patient doing well. Pain improved s/p aspiration by Dr. Antoine on 04/21 of the right knee. Working with PT/OT. Some concern about being discharged home while awaiting surgical workup but has made arrangements with her family for assistance. Review of Systems Review of Systems: All systems reviewed & are unremarkable except as noted in HPI and below (HPI ) Exam Const: General: comfortable and no acute distress Resp: Effort & Inspection: normal respiratory effort Cardio: Rate: regular rate Rhythm: regular rhythm GI: Inspection: non-distended GI Palp: Yes Soft to palpation, No Firmness to palpation present (GI), No Tenderness to palpation present (GI) and No Guarding due to palpation present (GI) Neuro: Motor exam (neuro): strength not 5/5 throughout (RLE ) Extrem: Right lower extremity: knee Details: abnormal to inspection (moderate swelling ), tenderness (diffuse ), swelling (moderate ), abnormal ROM (patella tendon rupture ) Details: unable to extend lower leg actively, ecchymosis and warmth; ROM abnormal, lower leg Details: ecchymosis, ankle Details: normal to inspection and foot Details: normal capillary refill, normal to inspection and vascular exam Details: dorsalis pedis pulse present Objective Data Vital Signs Vital Signs: Vital Signs - 24 hr 04/21/22 14:00 04/21/22 21:22 04/21/22 21:48 Temperature 36.8 C 37.0 C Pulse Rate 70 70 81 Respiratory Rate 18 18 Blood Pressure 154/72 H 140/69 Pulse Oximetry 98 98 Oxygen Delivery 04/21/22 20:00 04/22/22 05:35 04/22/22 08:00 Temperature 36.9 C Pulse Rate 70 Respiratory Rate 17 Blood Pressure 145/76 H Pulse Oximetry 95 Oxygen Delivery Room Air Room Air Intake/Output Intake/Output: Intake & Output 04/19/22 04/20/22 04/21/22 04/22/22 23:59 23:59 23:59 23:59 Intake Total 780 1500 Output Total 850 Balance -70 1500 Meds/Results Medications: Active Medications Generic Name Dose Route Start Last Admin Trade Name Freq PRN Reason Stop Dose Admin Acetaminophen 500 mg 04/20/22 09:06 Acetaminophen 500 Mg Tablet PO Q4H PRN Mild Pain (1-3) or Fever Hydrocodone Bitart/Acetaminophen 1 tab 04/20/22 09:06 04/21/22 13:46 Hydrocodone/Acetaminophen (*Crx) 5-325 Mg Tablet PO 1 tab Q4H PRN Administration Pain Rated 4-6 Hydrocodone Bitart/Acetaminophen 1 tab 04/20/22 09:07 Hydrocodone/
[2022-04-22 10:40] VITALS: O2SAT 96
[2022-04-22 14:00] VITALS: BP 145/70; PULSE 72; RESP 22; TEMP 36.6; O2SAT 96
--- NOTE | 2022-04-22 14:54 | PM.DS ---
DS: Admitting Diagnosis Discharge Date 04/22/22 Admitting Diagnosis Right Knee Patella Tendon Injury. 7 weeks s/p right TKA DS: Discharge Diagnosis Discharge Diagnosis (1) Patellar tendon rupture: Code(s): S86.819A - Strain of other muscle(s) and tendon(s) at lower leg level, unspecified leg, initial encounter Status: Acute Assessment and Plan: History, exam and radiographs reviewed with the patient once again. 7 weeks s/p right TKA, now with patella tendon rupture which occurred at home when going to stand up off of the toilet. Patient has been seen and evaluated by Dr. Antoine. Patient underwent an aspiration on 04/[address] Antoine with good relief of pain and swelling. Currently tolerating knee immobilizer well, slow progress with PT/OT. Per Dr. Antoine, we will advance to TTWB at this time. Walker at all times. Pain control. Ice. We will plan to refer the patient to Dr. Hargrove for surgical work up for patella tendon repair. Referral process initiated. Will update patient with appointment time prior to discharge if available. Once patient is able to tolerate PT/OT with current restrictions, she will be discharge home while awaiting surgical decision making by Dr. Hargrove in [place]. (2) S/P total knee arthroplasty: Code(s): Z96.659 - Presence of unspecified artificial knee joint Status: Acute Assessment and Plan: 7 weeks s/p right TKA. Previously doing well prior to incident, now with patella tendon rupture. DS: Summary Hospital Course Reason for hospitalization: Right Knee Patella Tendon Rupture Hospital Course: 71-year-old female admitted to [facility] after a knee injury while standing up off of the toilet at home. Patient is 7 weeks status post right total knee arthroplasty by Dr. Antoine. Patient felt a large pop when going to stand off of the toilet home on the day of admission. She was unable to bear weight on the right lower extremity. She was admitted to the emergency room for further evaluation. Radiographs at that time revealed a high positioned patella consistent with patellar tendon rupture. Patient was admitted for pain control and physical therapy. Dr. Zuniga assessed the patient and determined it was appropriate for an aspiration of the right knee joint for pain control as well. Aspiration performed by Dr. Antoine. Patient is in a knee immobilizer at this time. She will be discharged home with strict precautions to keep her knee in the knee immobilizer. She is being referred to Dr. Johanny rios in [place]. Referral process has been initiated. We will follow the patient until transition of care has been confirmed. Patient's pain is well controlled. She will be discharged home with self care at this time. Status at Discharge Functional status at discharge: uses cane/walker Overall status at discharge: patient is progressing back to baseline Time Spent with Patient Time attestation: Total time spent providing and/or coordinating discharge services: Exam Const: General: comfortable and no acute distress HENMT: Mouth: Yes moist mucous membranes Eyes: General: appearance normal, both eyes and all related structures Neck: Neck: supple and no JVD Resp: Effort & Inspection: normal respiratory effort Cardio: Rate: regular rate Rhythm: regular rhythm GI: Inspection: non-distended Neuro: General: gait normal Cranial nerves: Yes Normal hearing present Cognition (Neuro): normal cognition Speech: normal speech Motor exam (neuro): strength not 5/5 throughout (RLE ) Extrem: Right lower extremity: knee Details: abnormal to inspection (moderate swelling ), tenderness (diffuse ) Location: of the patella, swelling (moderate ) Location: of the patella, abnormal ROM (patella tendon rupture ) Details: unable to extend lower leg actively, ecchymosis and warmth; ROM abnormal, lower leg Details: ecchymosis, ankle Details: normal to inspection and foot Details
== END 2022-04-22 15:50 | disposition home or self-care (01) ==
LOC: ANHED 04-20 02:12 → ANH3MEDSUR 04-20 06:02
PROVIDERS: Emergency Medicine; Admitting Provider Orthopaedic Surgery; Emergency Provider Nurse Practitioner Family; PCP Emergency Medicine; Visit Provider Orthopaedic Surgery
DX: S86.811A Strain of other muscle(s) and tendon(s) at lower leg level, right leg, initial encounter (principal); T14.90XA Injury, unspecified, initial encounter; Z96.651 Presence of right artificial knee joint; I10 Essential (primary) hypertension; G47.33 Obstructive sleep apnea (adult) (pediatric); Z20.822 Contact with and (suspected) exposure to COVID-19
CPT/HCPCS: 36415; 73562; 80053; 85025; 97110; 97116; 97161; 97165; 97530; 99285; A9270; C9803; G0378; L1830; U0003; U0005

== ENCOUNTER 2022-08-25 11:30 | Outpatient (RCR) | payer MEDICARE, SELFPAY | END 2022-08-25 11:32 | disposition home or self-care (01) | LOC: ANHPT 11:30 | PROVIDERS: PCP Emergency Medicine; Visit Provider Orthopaedic Surgery | DX: Z47.1 Aftercare following joint replacement surgery (principal); Z96.651 Presence of right artificial knee joint | CPT/HCPCS: 99199 ==

== ENCOUNTER 2024-02-16 13:01 | Outpatient (CLI) | payer MEDICARE, SELFPAY ==
--- NOTE | ~2024-02-16 | CT_ITS ---
EXAMINATION: CT abdomen pelvis wo/w con DATE: 02/16/2024 13:39 INDICATION: Right flank pain. TECHNIQUE: Computed tomography (CT) of the abdomen and pelvis was performed without and with intraven ous contrast using a total of 130 mL Omnipaque-350 intravenous contrast with a double-bolus technique for simultaneous opacification of the renal parenchyma and renal collecting system. Automated exposu re control and iterative reconstruction technique were employed. The dose-length product was 2919.20 mGy-cm. COMPARISON: CT abdomen and pelvis 12/01/2018, pelvis ultrasound 02/08/2019 FINDINGS: The visualized portions of the lung bases demonstrate mild atelectasis. No pleural effusion. The hear t size is normal. No pericardial effusion. There is a small sliding hiatal hernia. The liver, gallbla dder, spleen, pancreas, and adrenal glands are normal. There is cortical thinning of the kidneys. The re is no urolithiasis. The ureters are not well opacified, but are normal. The bladder is not well op acified. Pelvic floor dysfunction is noted. There is a right inguinal hernia containing fat. There is diverticulosis of the colon without evidence of diverticulitis. The appendix is normal. There is chr onic fat stranding at the root of the small bowel mesentery. There are no pathologically enlarged lym ph nodes. There is no free intraperitoneal fluid. The endometrial complex is thickened to 10 mm. Ther e is severe lower lumbar spondylosis. There is mild chronic anterior wedging of multiple lower thorac ic vertebral bodies. There is mild thoracic spondylosis. IMPRESSION: 1. Thickening of the endometrial complex. The differential diagnosis includes endometrial hyperplasia , polyp, and carcinoma. Consider pelvis ultrasound and/or biopsy. 2. Right inguinal hernia containing fat. Reviewed, dictated and finalized at location A. IMPRESSION: 1. Thickening of the endometrial complex. The differential diagnosis includes e ndometrial hyperplasia, polyp, and carcinoma. Consider pelvis ultrasound and/or biopsy. 2. Right inguinal hernia containing fat.
[2024-02-16 13:22] LABS: Estimated Glomerular Filt Rate > 60
== END 2024-02-16 13:02 | disposition home or self-care (01) ==
LOC: ANHIMG 13:04
PROVIDERS: PCP Emergency Medicine; Visit Provider Emergency Medicine
DX: R10.9 Unspecified abdominal pain (principal)
CPT/HCPCS: 74178; Q9967

== ENCOUNTER 2024-03-23 12:25 | Outpatient (CLI) | payer MEDICARE, SELFPAY ==
--- NOTE | ~2024-03-23 | US_ITS ---
EXAMINATION: US pelvic complete w TV DATE: 03/23/2024 13:21 INDICATION: Endometrial complex thickening TECHNIQUE: Multiple transabdominal and endovaginal sonographic images of the pelvis were obtained. COMPARISON: 02/08/2019 FINDINGS: The uterus measures 7.7 x 3.3 x 4.1 cm. The endometrial complex is a heterogeneous appearance with p oorly defined margins measuring up to 1.5 cm the fundus. There is heterogeneous increased echogenicit y within the myometrium at the anterior fundus which appears asymmetrically thickened relative to the posterior fundus. The right and left ovaries are not visualized. There is small amount of anechoic f ree fluid in the cul-de-sac. IMPRESSION: 1. Thickened 1 heterogeneous endometrial complex at the fundus with thickened heterogeneous echogenic ity in the more anterior myometrium which given the history of vaginal bleeding provided at the time of the CT from one month prior raises concern for endometrial carcinoma and would recommend hysterosc opy and biopsy. Reviewed, dictated and finalized at location B. IMPRESSION: 1. Thickened 1 heterogeneous endometrial complex at the fundus with thickened h eterogeneous echogenicity in the more anterior myometrium which given the histo ry of vaginal bleeding provided at the time of the CT from one month prior osei es concern for endometrial carcinoma and would recommend hysteroscopy and biops y.
== END 2024-03-23 12:26 | disposition home or self-care (01) ==
LOC: ANHIMG 12:27
PROVIDERS: PCP Emergency Medicine; Visit Provider Emergency Medicine
DX: R93.89 Abnormal findings on diagnostic imaging of other specified body structures (principal)
CPT/HCPCS: 76830; 76856

== ENCOUNTER 2024-05-10 00:28 | Day surgery (SDC) | payer MEDICARE, SELFPAY ==
[2024-05-01 15:20] VITALS: BMI 37.0
--- NOTE | 2024-05-01 15:44 | PC.NURSE ---
Report to the Outpatient Waiting Room, entrance under the green pavilion located off [facility], at time ___6:00AM____ on date ___05/10/24____. Planned Procedure Time: ___7:30AM .? Time changes happen often and if your time is changed the preop area will call you the afternoon before. - You and your visitor will be asked to self-screen and do not enter if you have any COVID symptoms. Please call surgeon if you need to reschedule. - A mask is optional within the hospital at this time. Patients may have clear liquids (water, carbonated beverages, clear teas, apple juice) until 3 hours prior to surgery with a maximum of 20 ounces. - No food from midnight until time of surgery and no smoking Take only the following medications with a SIP of water on the morning of surgery: ____ALPRAZOLAM NEEDED. DO NOT STOP ANY OF YOUR OTHER PRESCRIPTION MEDICATIONS PRIOR TO SURGERY EXCEPT THE FOLLOWING Medications to discontinue per physician ____HOLD ALL VITAMINS/SUPPLEMENTS 3 DAYS PRE-OP PER ANESTHESIA Date to take last dose 05/06/24 Please no make-up, nail monegasque, hairspray, perfume, deodorant, or body powder the day of surgery.? No jewelry (including any body piercings) or valuables the day of surgery, leave them at home.? Please take a shower or bath the night before, or the morning of, surgery with an antibacterial soap.? Wear comfortable, loose fitting clothing.? - Jewelry must be removed prior to entering the operating room.? Rings and piercings that are not removed may be cut off. - The hospital will not accept responsibility for valuables.? - Please leave all valuables, including medications, at home the day of surgery. If you are going home after surgery, a licensed company tanker truck driver must drive you home.? - NO public transportation without another adult if you receive anesthesia. - We recommend that an adult stay with you for 24 hours following discharge. - We also recommend that you do not drive, make important decision, drink alcoholic beverages, or take any drugs that were not prescribed by your health care provider for at least 24 hours after your discharge time. Follow any additional instructions given to you from your surgeon. Telephone instructions given to ____PATIENT and asked if any additional questions and then verbalized understanding. Patient advised to call surgeon office or pre surgery nurse liaison [phone] if any additional questions.
[2024-05-10 06:15] VITALS: BP 170/86; PULSE 75; RESP 18; TEMP 36.2; O2SAT 98
--- NOTE | 2024-05-10 06:48 | WPDANESEPPF ---
Anes - Initial Pre Proc Eval Procedure: Operation Date: 05/10/24 07:30 Proposed Procedures p Hysteroscopy Dilation and Curettage - Mundo France MD Date/Time: 05/10/24 06:48 Surgeon: Mundo France MD Pre Op Diagnosis: endometrial hyperplasia Patient Data Age: 73 Gender: F Height: 1.71 m Weight: 109 kg Allergies Allergy/AdvReac Type Severity Reaction Status Date / Time lisinopril Allergy Severe Swelling Verified 05/09/24 14:05 of Lip/Tongue/Throat Home Medications Medication Instructions Recorded Confirmed Type trazodone 150 mg tablet 150 mg PO PRN PRN Insomnia 09/02/19 05/01/24 History ascorbic acid (vitamin C) 500 mg 500 mg PO DAILY 02/22/22 05/01/24 History tablet multivitamin 1 tablet PO DAILY 02/22/22 05/01/24 History tolterodine 4 mg capsule,extended 4 mg PO DAILY #90 caps 04/25/24 05/01/24 Rx release 24 hr (Detrol LA) alprazolam 0.25 mg tablet 0.25 mg PO BID PRN Anxiety 05/01/24 05/01/24 History cholecalciferol (vitamin D3) 250 250 mcg PO DAILY 05/01/24 05/01/24 History mcg (10,000 unit) capsule duloxetine 60 mg capsule,delayed 60 mg PO DIRECTED 05/01/24 05/01/24 History release glucosamine 500 [id number]-zop4 1 tablet PO DAILY 05/01/24 05/01/24 History 416.6 mg-C 20 mg-pawel 0.6 mg tablet lactobacillus combination no.4 3 3,000 mmu cells PO DAILY 05/01/24 05/01/24 History billion cell capsule (Probiotic) magnesium L-threonate 48 mg 48 mg PO DAILY 05/01/24 05/01/24 History magnesium (667 mg) capsule vitamin B complex 1 tablet PO DAILY 05/01/24 05/01/24 History Patient hx anesthesia problems: none Family hx anesthesia problems: none Results Review: All pre-operative results and documents have been reviewed as part of the pre-operative evaluation. [facility] Past Medical History Medical History Anxiety CRP elevated Dependence on other enabling machines and devices Essential hypertension Generalized osteoarthritis of multiple sites Inflammatory arthritis (~2019) KATARINA on CPAP Paroxysmal VT PAT (paroxysmal atrial tachycardia) Patellar tendon rupture Patellar tendon strain Septic arthritis in right knee had drains in legs Surgical History Surgical History S/P total knee arthroplasty Family History Family History Father Hypertension Cerebrovascular accident Sibling Family history of coronary artery disease Family history of lymphoma Other Diabetes mellitus Family history of arthritis Family history of cardiovascular disease Family history of malignant neoplasm Social History Social History Smoking status: Never smoker Tobacco type: cigarettes Second hand tobacco smoke exposure: No Additional smoking assessment comments: DENIES ANY FORM OF TOBACCO USE Alcohol intake: current Drinks per week: 2 Alcohol use details: wine, 3 times a week Substance use: never Substance use type: does not use Do You Feel Safe in your Home?: Yes Lack of Transportation: No Lack of Food: Never True Current Housing: I Have Housing Concerned About Future Housing: No Difficulty Paying Gas/Electric Bills: No Difficulty Paying for Meds: No Currently Unemployed: No Education: Bachelor's Degree Difficulty w/ Childcare or Family Care: No Living arrangements: with family Additional living arrangements comments: S.O. Occupation/Education: retired Gender identity (if verbalized by the patient): Female Sexual Orientation (if Verbalized by the Patient): Straight or Heterosexual Spiritual care concerns: No Anes - Eval Final PreProcedure Day of Procedure 05/10/24 06:48 Patient weight: obese Heart: regular rate and rhythm Lungs: clear to auscultation Airway: Mallampati scale class II Neurological: alert and oriented Last oral intake: >/= 8 hours ASA classification: III Emergent: no Anesthetic plan: proceed Anesthesia type and monitoring: general GIVS and standard monitoring Results Review: All pre-operative results and documents have been reviewed as part of the pre-operative evaluation. Informed Consent: The patient's anesthetic plan and its attendant risks and benefits were discussed with the patient/family/POA. Questions were solicited and answers provided to the satisfaction of the patient/family/POA.
[2024-05-10] MEDS: LACTATED RINGERS 1,000 ML 30 ML IV CONT (06:56)
[2024-05-10] MEDS: ACETAMINOPHEN 500 MG TABLET 1000 MG PO (06:57)
[2024-05-10 06:58] LABS: Hematocrit 39.3 % (37.0-47.0); Hemoglobin 12.3 g/dL (12.0-15.0); Mean Corpuscular HGB Conc 31.3 g/dl (32-36); Mean Corpuscular Hemoglobin 25.6 pg (26-34); Mean Corpuscular Volume 81.7 fl (80-100); Mean Platelet Volume 9.9 fl (7.4-10.4); Platelet Count Result 283 k/mm3 (150-375); Red Blood Count 4.81 M/mm3 (4.2-5.4); Red Cell Distribution Width 15.5 % (11.5-14.5); White Blood Count 5.9 K/mm3 (4.5-10.0)
[2024-05-10 07:00] VITALS: BP 143/67
--- NOTE | 2024-05-10 07:17 | WPDHPUPDATE1 ---
History and Physical Update Update Date/Time: 05/10/24 07:17 History and Physical has been reviewed, including an updated exam of the patient. There are NO changes in the patient's condition. Risks, benefits, and alternatives have been discussed and questions answered. Patient agrees to proceed with procedure.
[2024-05-10] MEDS: ceFAZolin 2 GM/D5W 50 ML 2 GM/50 ML BAG IVPB (07:26)
--- NOTE | 2024-05-10 07:51 | W.PM.PROC2 ---
Procedure Note - Detailed Date of Procedure 05/10/24 Pre-op Diagnosis endometrial hypertrophy Post-op Diagnosis Same Procedure Performed Hysteroscopy with uterine curettings Surgeon Mundo France MD Anesthesia MAC Findings Endometrial cavity atrophic. No evidence of polyps fibroids or hypervascularity. Cystocele was noted as well. Description of Procedure Patient prepped and draped in usual manner for this procedure. Cervix was stenotic but readily dilated to allow hysteroscope to be placed. Findings were noted as above without any significant abnormalities appreciated. Shavings were obtained throughout with minimal tissue removed. There was no significant bleeding. At this point the procedure was considered terminated and the patient was sent to the recovery room in stable condition. Estimated Blood Loss 10 Drains No Packing No Pathology Yes Complications No immediate complications Condition Stable Disposition PACU [facility] Billing Surgery - Charge Forward: Surgery Billing
[2024-05-10 07:55] VITALS: BP 132/56; PULSE 70; RESP 14; O2SAT 95
[2024-05-10 08:24] VITALS: BP 147/64; PULSE 65; RESP 16; O2SAT 95
[2024-05-10 08:33] VITALS: BP 150/81; PULSE 63; RESP 16; O2SAT 99
== END 2024-05-10 08:39 | disposition home or self-care (01) ==
PROVIDERS: PCP Emergency Medicine; Visit Provider Obstetrics & Gynecology
PROC: 0U5B8ZZ Destruction of Endometrium, Via Natural or Artificial Opening Endoscopic (ICD-10-PCS; CPT 58563; principal; 2024-05-10 07:30)
DX: R93.89 Abnormal findings on diagnostic imaging of other specified body structures (principal); N72 Inflammatory disease of cervix uteri; F41.9 Anxiety disorder, unspecified; G47.33 Obstructive sleep apnea (adult) (pediatric); I10 Essential (primary) hypertension; M15.0 Primary generalized (osteo)arthritis; M06.4 Inflammatory polyarthropathy; I47.29 Other ventricular tachycardia; I47.19 Other supraventricular tachycardia; E66.9 Obesity, unspecified; Z68.36 Body mass index [BMI] 36.0-36.9, adult; Z99.89 Dependence on other enabling machines and devices; Z98.890 Other specified postprocedural states; Z87.39 Personal history of other diseases of the musculoskeletal system and connective tissue; Z80.7 Family history of other malignant neoplasms of lymphoid, hematopoietic and related tissues; Z82.49 Family history of ischemic heart disease and other diseases of the circulatory system
CPT/HCPCS: 58558; 36415; 85027; 88305; A9270; J0690; J2003; J2405; J2704; J3010; J7030; J7120

== ENCOUNTER 2024-09-05 11:03 | Emergency (ER) | payer MEDICARE, SELFPAY ==
--- NOTE | 2024-09-05 11:07 | ED.WOUNDLAC ---
HPI - Wound/Laceration General Chief Complaint: Wound/Laceration Stated Complaint: CAT BITE Source: patient and RN notes reviewed Mode of arrival: ambulatory Limitations: no limitations History of Present Illness HPI narrative: Patient is a 74-year-old female who presents to the [facility] with complaints of a cat bite to the left lower leg. Patient states that she got up in the middle the night to use the restroom. She states that she accidentally stepped on her cat. She was unable to quickly lift her leg due to balancing, and the cat bit her left lower leg. She presents to the [facility] with puncture wounds to the left anterior lower leg with no bleeding. Patient states that she clean the wound directly after the incident. States that the animal is up to date on shots. Related Data Home Medications ?Medication ?Instructions ?Recorded ?Confirmed ?Last Taken ?Type trazodone 150 mg tablet 150 mg PO PRN PRN Insomnia 09/02/19 05/28/24 Unknown History ascorbic acid (vitamin C) 500 mg 500 mg PO DAILY 02/22/22 05/28/24 05/06/24 History tablet multivitamin 1 tablet PO DAILY 02/22/22 05/28/24 05/06/24 History alprazolam 0.25 mg tablet 0.25 mg PO BID PRN Anxiety 05/01/24 05/28/24 Unknown History cholecalciferol (vitamin D3) 250 250 mcg PO DAILY 05/01/24 05/28/24 05/06/24 History mcg (10,000 unit) capsule duloxetine 60 mg capsule,delayed 60 mg PO DIRECTED 05/01/24 05/28/24 Unknown History release glucosamine 500 fa-muvlbcdtvp-unw4 1 tablet PO DAILY 05/01/24 05/28/24 05/06/24 History 416.6 mg-C 20 mg-pawel 0.6 mg tablet lactobacillus combination no.4 3 3,000 mmu cells PO DAILY 05/01/24 05/28/24 05/06/24 History billion cell capsule (Probiotic) magnesium L-threonate 48 mg 48 mg PO DAILY 05/01/24 05/28/24 05/06/24 History magnesium (667 mg) capsule vitamin B complex 1 tablet PO DAILY 05/01/24 05/28/24 05/06/24 History Allergies Allergy/AdvReac Type Severity Reaction Status Date / Time lisinopril Allergy Severe Swelling Verified 09/05/24 11:17 of Lip/Tongue/Throat Review of Systems Review of Systems: CONSTITUTIONAL: Denies fever, chills, or sweats. EYES: Denies visual changes, redness, or discharge. ENT: Denies otalgia and sore throat CARDIOVASCULAR: Denies chest pain, palpitations, or edema. RESPIRATORY: Denies cough or dyspnea. GASTROINTESTINAL: Denies abdominal pain, nausea, vomiting, or diarrhea. GENITOURINARY: Denies dysuria or hematuria. SKIN: Reports cat bite to left lower leg. MUSCULOSKELETAL: Denies back pain, joint pain, or myalgia. NEUROLOGIC: Denies headache, numbness, or weakness. Pertinent positives per HPI. [facility] Past Medical History Medical History Septic arthritis in right knee had drains in legs Patellar tendon strain Patellar tendon rupture CRP elevated Generalized osteoarthritis of multiple sites Inflammatory arthritis (~2019) Anxiety Dependence on other enabling machines and devices PAT (paroxysmal atrial tachycardia) Paroxysmal VT Essential hypertension KATARINA on CPAP Surgical History Surgical History History of hysteroscopy (05/10/24) Hysteroscopy with uterine curettings / Benign S/P total knee arthroplasty Family History Family History Father Hypertension Cerebrovascular accident Sibling Family history of coronary artery disease Family history of lymphoma Other Diabetes mellitus Family history of arthritis Family history of cardiovascular disease Family history of malignant neoplasm Social History Social History Smoking status: Never smoker Tobacco type: cigarettes Second hand tobacco smoke exposure: No Additional smoking assessment comments: DENIES ANY FORM OF TOBACCO USE Alcohol intake: current Drinks per week: 2 Alcohol use details: wine, 3 times a week Substance use: never Substance use type: does not use Do You Feel Safe in your Home?: Yes Lack of Transportation: No Lack of Food: Never True Current Housing: I Have Housing Concerned About Future Housing: No Difficulty Paying Gas/Electric Bills: No Difficulty Paying for Meds: No Currently Unemployed: No Education: Bachelor's Degree Difficulty w/ Childcare or Family Care: No Living arrangements: with family Additional living arrangements comments: S.O. Occupation/Education: retired Gender identity (if verbalized by the patient): Female Sexual Orientation (if Verbalized by the Patient): Straight or Heterosexual Spiritual care concerns: No Comments At the time of my signature, I reviewed and agree with the nursing past medical, surgical, social, and family history. There is no relevant family history pertinent to the patient complaint. Exam Narrative: GENERAL: This is a well-nourished, well-developed patient, in no apparent distress. HEAD: normocephalic, atraumatic. EYES: Sclera clear/white. Vision is grossly intact. EARS: External ears normal. Hearing grossly intact. NOSE: External nose normal with no obvious nasal discharge, nares without redness, no rhinorrhea. THROAT: Mucous membranes moist, posterior pharynx clear. NECK: Neck supple, non-tender without lymphadenopathy, masses or thyromegaly. CARDIOVASCULAR: Regular rate and rhythm without murmurs, gallops, or rubs. RESPIRATORY: Clear to auscultation. Breath sounds equal bilaterally. No wheezes, rales, or rhonchi. GASTROINTESTINAL: Abdomen soft, non-tender, nondistended. Bowel sounds are active. No hepato-splenomegaly, or palpable masses. No guarding. SKIN: 2 puncture wounds noted to left anterior lower leg with no active bleeding. No surrounding erythema. No induration. Distal motor and neuro status intact. NEURO: awake, alert, and oriented to person, place and time. There were no obvious focal neurologic abnormalities. EXTREMITIES: No clubbing, cyanosis, or edema. No joint tenderness, effusion, or edema noted. Course Course Level of Care: Express Care Visit Vital Signs Vital signs: Vital Signs Temperature 98.4 F 09/05/24 11:14 Pulse Rate 83 09/05/24 11:14 Respiratory Rate 16 09/05/24 11:14 Blood Pressure 157/70 H 09/05/24 11:14 Pulse Oximetry 99 09/05/24 11:14 Temperature 98.4 F 09/05/24 11:14 Pulse Rate 83 09/05/24 11:14 Respiratory Rate 16 09/05/24 11:14 Blood Pressure 157/70 H 09/05/24 11:14 Pulse Oximetry 99 09/05/24 11:14 Reviewed MDM - Wound/Laceration MDM Narrative Medical decision making narrative: Clean with soap and water only; Avoid using alcohol and peroxide. Elevate the affected area if possible Alternate Tylenol/ibuprofen for as needed for pain Acetaminophen(Tylenol) 650-1000mg every 4-6hours with max of 4000mg/day. Nonsteroidal anti-inflammatory agent (NSAIDs-ibuprofen): 400mg every 4-6hours with max 2400mg/day Take antibiotic until it's gone. Please schedule a follow up visit with your personal physician for further evaluation and treatment within 3-5days OR if your symptoms persist, change or worsen significantly before you can contact your personal physician then please, without delay, go to the emergency department for further evaluation. Differential Diagnosis Differential diagnosis: Likely laceration, avulsion of skin and other (cat bite) Critical Care Time Critical Care Time Critical Care Time: No Discharge Plan Discharge Clinical Impression: Cat bite of left lower leg Patient Disposition: Home, Self-Care Condition: Stable Instructions: Antibiotic Form, Animal Bite (ED) Additional Instructions: Clean with soap and water only; Avoid using alcohol and peroxide. Elevate the affected area if possible Alternate Tylenol/ibuprofen for as needed for pain Acetaminophen(Tylenol) 650-1000mg every 4-6hours with max of 4000mg/day. Nonsteroidal anti-inflammatory agent (NSAIDs-ibuprofen): 400mg every 4-6hours with max 2400mg/day Take antibiotic until it's gone. Please schedule a follow up visit with your personal physician for further evaluation and treatment within 3-5days OR if your symptoms persist, change or worsen significantly before you can contact your personal physician then please, without delay, go to the emergency department for further evaluation. Patient Language: Finnish Prescriptions: New amoxicillin-pot clavulanate 875-125 mg tablet 1 tablet PO Q12H 10 Days Qty: 20 0RF No Action trazodone 150 mg tablet 150 mg PO PRN PRN (Reason: Insomnia) multivitamin Tablet 1 tablet PO DAILY ascorbic acid (vitamin C) 500 mg Tablet 500 mg PO DAILY alprazolam 0.25 mg tablet 0.25 mg PO BID PRN (Reason: Anxiety) vitamin B complex Tablet 1 tablet PO DAILY cholecalciferol (vitamin D3) 250 mcg (10,000 unit) Capsule 250 mcg PO DAILY oogtzmql-ktaza-ypb9-C-pawel-bor 500-416.6-20 mg Tablet 1 tablet PO DAILY Probiotic 3 billion cell Capsule 3,000 mmu cells PO DAILY Rx Instructions: administer with a meal magnesium L-threonate 48 mg magnesium (667 mg) Capsule 48 mg PO DAILY duloxetine 60 mg capsule,delayed release(DR/EC) 60 mg PO DIRECTED Patient Comments: MAY TAKE BID, CURRENTLY TAKES AT HS ONLY ibuprofen 400 mg tablet 400 mg PO Q6H Qty: 20 0RF tolterodine [Detrol LA] 4 mg capsule,extended release 24hr 4 mg PO DAILY Qty: 90 3RF Follow-up/Referrals: Lyle Hoffmann MD [Primary Care Provider] -
[2024-09-05 11:14] VITALS: BP 157/70; PULSE 83; RESP 16; TEMP 36.9; O2SAT 99
== END 2024-09-05 11:28 | disposition home or self-care (01) ==
PROVIDERS: Emergency Provider Nurse Practitioner; PCP Emergency Medicine
DX: S81.832A Puncture wound without foreign body, left lower leg, initial encounter (principal); W55.01XA Bitten by cat, initial encounter; I10 Essential (primary) hypertension; G47.33 Obstructive sleep apnea (adult) (pediatric); F41.9 Anxiety disorder, unspecified; M15.9 Polyosteoarthritis, unspecified
CPT/HCPCS: 99213; G0463

== ENCOUNTER 2024-09-10 08:03 | Outpatient (CLI) | payer MEDICARE, SELFPAY ==
--- NOTE | ~2024-09-10 | MM_ITS ---
EXAMINATION: MM screening john BI w kendal HISTORY: Screening mammogram TECHNIQUE: Craniocaudal and mediolateral oblique 3-D tomosynthesis images were obtained and synthetic 2-D images were generated. CAD analysis was submitted and interpreted. COMPARISON: 04/09/2019 BREAST PARENCHYMAL COMPOSITION:Not Dense. There are scattered areas of fibroglandular density. FINDINGS: No suspicious mass, calcification, or architectural distortion are identified in either eric ast to suggest malignancy. There has been no suspicious interval change. IMPRESSION: No mammographic evidence of malignancy. Recommend routine screening mammography in one year. BI-RADS Category 1: Negative Reviewed, dictated and finalized at location .
--- NOTE | ~2024-09-10 | DEXA_ITS ---
Bone Density Report Name: ALEXANDRO LAMA Age: 74 Sex: Female Ethnicity: White Date of : 1950 Indication: postmenopausal; screening for osteoporosis; height loss; Referring Provider: ART OVALLE Study: Bone densitometry was performed. Exam Date: September 10, 2024 Accession number: [id number] Bone Density: Region BMD T-score Z-score Classification AP Spine(L1-L4) 1.063 0.1 2.4 Normal Femoral Neck (Left) 0.666 -1.6 0.3 Osteopenia Total Hip (Left) 0.859 -0.7 0.9 Normal Femoral Neck (Right) 0.558 -2.6 -0.7 Osteoporosis Total Hip (Right) 0.803 -1.1 0.5 Osteopenia Total Hip Mean 0.831 -0.9 0.7 Normal World Health Organization criteria for BMD impression classify patients as: Normal (T-score at or above -1.0), Osteopenia (T-score between -1.0 and -2.5), or Osteoporosis (T-score at or below -2.5). 10-year Fracture Risk: FRAX not reported because: Some T-score for Spine Total or Hip Total or Femoral Neck at or below -2.5 Clinical Information Provided by Patient: Has used the following medications: Vitamin D, Calcium Patient maximum height was 68 Menopause Age: 54 No regular weight bearing exercise Drinks caffeinated beverages Onset of menses at age 15 Number of children 6 Impression: The patient has osteoporosis, based on the Right Femoral Neck T-score. Discussion: INCREASED RISK OF FRACTURE. BONE DENSITY IS UNDESIRABLY LOW AT ONE OR MORE SKELETAL SITES, CONSISTENT WITH POSTMENOPAUSAL OSTEOPOROSIS. This patient's lowest T-score meets the World Health Organization's (WHO) criteria for osteoporosis at one or more sites (T-score -2.5 or below). In untreated patients, the risk of osteoporotic fracture increases approximately two-fold for each 1.0 SD decrease in T-score. Low bone density is not the only risk factor for fracture; also consider factors such as patient's age, frailty or poor health, risk of falling, risk of injury, previous osteoporotic fracture, family history of osteoporosis, cigarette smoking, low body weight, etc. Not everyone with low bone mineral density has osteoporosis; osteomalacia and other metabolic bone disorders should also be considered. Patients who have osteoporosis should be evaluated for specific diseases and conditions (secondary causes) that may cause or contribute to bone loss. The [place] Association of Clinical Endocrinologists (AACE) and National Osteoporosis Foundation (NOF) recommend pharmacologic intervention for all postmenopausal women whose T-score is in this range. The patient should follow a healthful lifestyle (good nutrition with adequate calcium and vitamin D, and appropriate weight-bearing exercise). Follow-Up: Consider a repeat BMD and Vertebral Fracture Assessment (VFA) exam in 2 years or sooner if medically necessary, to reassess this patient's status. Reported by: HENRY on 09/10/2024 8:49:00 AM. Reviewed, dictated and finalized at location [employer] [facility]
--- OUTSIDE RECORDS SUMMARY | 2024-09-10 08:25 | XMS_ITS | Clinical Summary ---
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 Name Role Phone Lyle Hoffmann MD Primary Care Provider [phone] Сергей Lowery MD Unavailable [phone] Allergies Active Allergy Reactions Criticality Noted Date Comments Lisinopril Cough Low 07/24/2024 Medications traZODone (DESYREL) 150 mg tablet Take 1 tablet (150 mg total) by mouth nightly at bedtime Active tolterodine LA (DETROL LA) 4 mg 24 hr capsule Take 1 capsule (4 mg total) by mouth daily 4 Active prednisoLONE acetate (PRED FORTE) 1 % ophthalmic suspension SHAKE LIQUID AND INSTILL 1 DROP IN LEFT EYE FOUR TIMES DAILY 4 Active permethrin (ELIMITE) 5 % cream Apply topically 4 Active ibuprofen (ADVIL,MOTRIN) 400 mg tablet Take 1 tablet (400 mg total) by mouth every 6 (six) hours [address] (CYMBALTA) 30 mg capsule Take 1 capsule (30 mg total) by mouth daily Active Active Problems Problem Noted Date Diagnosed Date Pseudophakia of both eyes 07/24/2024 Encounters Date Type Department Care Team Description 08/28/[address] [facility] Ophthalmology [address] [place] [address] Mirta Aceves MD request for appt 07/24/2024 1:00 PM CLOTH CHECKER Office Visit [facility] Ophthalmology [address], [address] [place] [address] Mirta Aceves MD Pseudophakia of both eyes (Primary Dx) from Last 3 Months Surgical History Surgery Date Site/Laterality Comments REPLACEMENT TOTAL KNEE 07/04/2021 - 07/03/2022 Right KNEE SURGERY 07/04/2022 - 07/03/2023 Right Tendon Repair CATARACT EXTRACTION W/ INTRAOCULAR LENS IMPLANT Bilateral DILATION AND CURETTAGE OF UTERUS 06/03/2024 - 07/03/2024 Thick Uterus Social History Tobacco Use Types Packs/Day Years Used Date Smoking Tobacco: Never Smokeless Tobacco: Never Tobacco Cessation:Counseling Given: No AUDIT-C Answer Date Recorded Q1: How often do you have a drink containing alc ohol? Monthly or less 07/24/2024 Q2: How many drinks containi ng alcohol do you have on a typical day when you are drinking? 1 or 2 07/24/2024 Q3: How often do you have si x or more drinks on one occasion? Never 07/24/2024 Comments Unknown Sex and Gender Information Value Date Recorded Sex Assigned at Not on file Legal Sex Female 12:55 AM CLOTH CHECKER Gender Identity Not on file Sexual Orientation Not on file Obstetrics History Plan of Treatment Health Maintenance Due Date Last Done Comments Breast Cancer Screening-Mammogram 1952 Colon Cancer Screening-Colonoscopy 1952 Depression Screening 1952 Fall Risk Assessment 1952 Hepatitis C Screening 1952 Osteoporosis Screening-Bone Density Scan 1952 DTaP/Tdap/Td Vaccine (1 - Tdap) 1963 Hepatitis B Screening 1970 Pneumococcal vaccine 65+ (1 of 1 - PCV) 2002 Zoster Vaccine (1 of 2) 2002 Well Visit 65+ 2017 Covid-19 Vaccine (3 - season) 2024, 04/22/2021 Influenza Vaccine (#1) 2024 Insurance MEDICARE [employer] Care Teams Postal Service Clerk Relationship Specialty Start Date End Date Lyle Hoffmann MD [address] [place] [id number] PCP - General Family Medicine 07/24/24 Сергей Lowery MD [address] [place] [address] [place] [address] Consulting Physician Ophthalmology 07/24/24
--- OUTSIDE RECORDS SUMMARY | 2024-09-10 08:25 | XMS_ITS | Clinical Summary ---
Author Organization [facility] Address [address] [place] [id number] Care Team Providers Care Director Meetings Name Role Phone Unavailable Primary Care Provider Unavailabl e Social History Tobacco Use Types Packs/Day Years Used Date Smoking Tobacco: Never Assessed Comments Unknown Sex and Gender Information Value Date Recorded Sex Assigned at Not on file Legal Sex Female 7:00 PM CDT Gender Identity Not on file Sexual Orientation Not on file Plan of Treatment Health Maintenance Due Date Last Done Comments Colorectal Cancer Screening Colonoscopy (10 Years) 1952 Hepatitis C 1970 DTaP, Tdap and Td Vaccines ( 1 - Tdap) 1971 Mammogram Screening 1992 Zoster Vaccines (1 of 2) 2002 Dexa Scan (General) 2017 Pneumococcal Vaccine: 65+ Ye ars (1 of 1 - PCV) 2017 COVID-19 Vaccine (2023-2 5 season) 2024 Influenza Adult (#1) 2024 RSV Immunization or 60+ Years (1 - 1-dose 75+ series) 2027 Meningococcal B Vaccine Aged Out No l onger eligible based on patient's age to complete this topic Meningococcal Vaccine Aged Out No hilario maria fernanda eligible based on patient's age to complete this topic RSV Immunizations Under 20 Months Aged Out No longer eligible based on patient's age to complete this topic
--- OUTSIDE RECORDS SUMMARY | 2024-09-10 08:26 | XMS_ITS | Clinical Summary ---
Author Organization [facility] Address [address], [facility] [address] [place] [address] Phone Care Team Providers Care Stringed Instrument Assembler Name Role Phone Unavailable Primary Care Provider Unavailabl e Medications MMC-VOh-JfEg-Na Sulf-Na Asc-C (MOVIPREP) 100 GM Recon Soln Use as directed on the bottle for colonoscopy prep. 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 Gender Identity Not on file Sexual Orientation Not on file Plan of Treatment Health Maintenance Due Date Last Done Comments DEXA Bone Density 1950 Hepatitis C Virus (HCV) Screening 1952 TdaP Immunization 1952 Colonoscopy 1997 Colorectal Cancer Screening 1997 Cologuard 2002 Immunochemical Fecal Occult Blood 2002 Mammogram 2002 Pneumococcal Immunization (5 0+ years) (1 of 1 - PCV) 2002 Zoster Immunization (1 of 2) 2002 Influenza Immunization (#1) 2024 SARS-COV-2 Immunization ( - 2023-25 season) 2024 Respiratory Syncytial Virus (RSV) Immunization (Adult) (1 - 1-dose 75+ series) 2027 Hepatitis B Immunization Aged Out No longer eligible based on patient's age to complete this topic Meningococcal Immunization (ACWY) Aged Out No longer eligible based on patient's age to complete this topic Rotavirus Immunization Aged Out No lo nger eligible based on patient's age to complete this topic Insurance
--- OUTSIDE RECORDS SUMMARY | 2024-09-10 08:26 | XMS_ITS | Continuity of Care Document ---
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 Name Role Phone Lyle Hoffmann MD Unavailable Unavailable Allergies, Adverse Reactions, Alerts Substance Reaction Status Criticality No Known Allergies Active No Inform ation Medications Medication Instructions Dosage Effective Dates (start - stop) Status Comments Xanax 0.25 mg tablet take 1 tablet by oral route 2 times every day as needed 0.25 MG - Active avoid drivin g or operate machines, PRn for anxiety trazodone 150 mg tablet take 1 tablet by oral route every day at bedtime - Active avoid driving or operate machines Cymbalta 60 mg capsule,delayed release take 1 capsule by oral route every day 60 MG - Active hydroxyzine HCl 25 mg tablet take 1 tablet by oral route every 6 hours PRN for itching as needed - Active PRN for itching, avoid driving or operate machines cephalexin 500 mg tablet take 1 tablet by oral route every 12 hours 500 MG - Active Vitamin D2 1,250 mcg (50,000 unit) capsule take one capsule orally once per week - Active metoprolol succinate ER 25 mg tablet,extended release 24 hr take 1 tablet by oral route every day 25 MG - Active Procedures Procedure Date OFFICE/OUTPATIENT VISIT, EST OFFICE/OUTPATIENT VISIT, EST OFFICE/OUTPATIENT VISIT, EST OFFICE/OUTPATIENT VISIT, EST OFFICE/OUTPATIENT VISIT, EST OFFICE/OUTPATIENT VISIT, EST OFFICE/OUTPATIENT VISIT, EST OFFICE/OUTPATIENT VISIT, EST PREV VISIT, EST, 65 & OVER OFFICE/OUTPATIENT VISIT, EST OFFICE/OUTPATIENT VISIT, EST OFFICE/OUTPATIENT VISIT, EST OFFICE/OUTPATIENT VISIT, EST OFFICE/OUTPATIENT VISIT, EST OFFICE/OUTPATIENT VISIT, EST PREV VISIT, EST, 65 & OVER OFFICE/OUTPATIENT VISIT, EST OFFICE/OUTPATIENT VISIT, EST OFFICE/OUTPATIENT VISIT, EST OFFICE/OUTPATIENT VISIT, EST PREV VISIT, EST, 65 & OVER OFFICE/OUTPATIENT VISIT, EST OFFICE/OUTPATIENT VISIT, EST PREV VISIT, EST, 65 & OVER OFFICE/OUTPATIENT VISIT, EST OFFICE/OUTPATIENT VISIT, EST OFFICE/OUTPATIENT VISIT, EST OFFICE/OUTPATIENT VISIT, EST PREV VISIT, EST, AGE 40-64 OFFICE/OUTPATIENT VISIT, EST OFFICE/OUTPATIENT VISIT, EST OFFICE/OUTPATIENT VISIT, EST PREV VISIT, EST, AGE 40-64 OFFICE/OUTPATIENT VISIT, EST OFFICE/OUTPATIENT VISIT, EST OFFICE/OUTPATIENT VISIT, EST OFFICE/OUTPATIENT VISIT, EST OFFICE/OUTPATIENT VISIT, EST OFFICE/OUTPATIENT VISIT, EST PREV VISIT, EST, AGE 40-64 OFFICE/OUTPATIENT VISIT, EST OFFICE/OUTPATIENT VISIT, EST OFFICE/OUTPATIENT VISIT, EST OFFICE/OUTPATIENT VISIT, EST OFFICE/OUTPATIENT VISIT, EST PREV VISIT, EST, AGE 40-64 OFFICE/OUTPATIENT VISIT, EST OFFICE/OUTPATIENT VISIT, EST PREV VISIT, EST, AGE 40-64 OFFICE/OUTPATIENT VISIT, EST Advance Directives Directive Yes / No Effective Date File Name No Information Encounters Encounter Description Practice Location Reason(s) For Visit Diagnoses Date Provider Providers Copied on Encounter OFFICE/OUTPA TIENT VISIT, EST [facility], [address], [place], [place], [address], [place] tel:[phone] [facility] anxiety1 (chief complaint)f lank pain1 (chief complaint) Generalized anxiety disorderRight lower quadrant painInguinal herniaEndometrial hyperplasia w/o atypia 4 Shun Valdovinos [address], [place], [place], [address] , [place]. tel:[phone] OFFICE/OUTPA TIENT VISIT, [facility], [address], [place], [place], [address], [place] tel:[phone] [facility] flank pain1 (chief complaint)a nxiety1 (chief complaint)p alpitation1 (chief complaint) Right lower quadrant painGeneralized anxiety disorderPalpitatio ns 4 Shun Valdovinos [address], [place], [place], [address] , [place]. tel:[phone] OFFICE/OUTPA TIENT VISIT, [facility], [address] [place] [place], [address], [place] tel:[phone] [facility] skin sore1 (chief complaint)i nsomnia1 (chief complaint)s leep apnea1 (chief complaint)a nxiety1 (chief complaint) Pain in right kneePrimary insomniaGeneralize d anxiety disorderCellulitis of chest wallObstructive sleep apnea hypopnea 4 Shun Valdovinos [address], [place], [place], [address] , [place]. tel:[phone] OFFICE/OUTPA TIENT VISIT, [facility], [address] [place], [address], [place] tel:[phone] [facility] knee pain1 (chief complaint) Pain in right knee 3 Shun Alvarenga. [address], [place], [place], [address] , [place]. tel:[phone] OFFICE/OUTPA TIENT VISIT, [facility], [address] [place], [address], [place] tel:[phone] [facility] knee pain1 (chief complaint)H TN (chief complaint)o steopenia1 (chief complaint) Essential (primary) hypertensionPain in right kneeOther specified disorder of bone densityEncounter for oth screening for malignant neoplasm of breastAtrial (paroxysmal) tachycardia 2 Shun Valdovinos [address], [place], [place], [address] , [place]. tel:[phone] OFFICE/OUTPA TIENT VISIT, [facility], [address] [place], [address], [place] tel:[phone] [facility] knee pain1 (chief complaint)i nsomnia1 (chief complaint) Primary insomniaPain in right knee 2 Shun Valdovinos [address], [place], [place], [address] , [place]. tel:[phone] OFFICE/OUTPA TIENT VISIT, [facility], [address] [place], [address], [place] tel:[phone] [facility] knee pain1 (chief complaint)c ataract1 (chief complaint) Unilateral primary osteoarthritis, right kneeCataract in diseases classified elsewhere 2 Shun Alvarenga. [address], [place], [place], [address] , [place]. tel:[phone] OFFICE/OUTPA TIENT VISIT, [facility], [address] [place], [address], [place] tel:[phone] [facility] HTN (chief complaint)s kin (chief complaint)f lushing1 (chief complaint)j oint pain1 (chief complaint) Essential (primary) hypertensionOsteoa rthritisFlushingOt her specified disorder of bone density 2 Shun Alvarenga. [address], [place], [place], [address] , [place]. tel:[phone] PREV VISIT, EST, 65 & OVER [facility], [address], [place], [place], [address], [place] tel:[phone] [facility] physical (chief complaint) Encounter for general adult medical exam w abnormal findingsEssential (primary) hypertensionGenera lized anxiety disorderInsomniaCa rdiomegalyAtrial tachycardiaOther specified disorder of bone densitySleep apneaMethicillin resis staph infct causing diseases classd elswhr 2 Shun Alvarenga. [address], [place], [place], [address] , [place]. tel:[phone] OFFICE/OUTPA TIENT VISIT, [facility], [address], [place], [place], [address], [place] tel:[phone] [facility] viral infection1 (chief complaint)r ash1 (chief complaint)H TN (chief complaint) Viral infectionEssential (primary) hypertensionRashIt ch 2 Shun Alvarenga. [address], [place], [place], [address] , [place]. tel:[phone] OFFICE/OUTPA TIENT VISIT, [facility], [address] [place], [address], [place] tel:[phone] [facility] COVID1 (chief complaint)H TN (chief complaint)a nxiety1 (chief complaint) Viral infectionCataract in diseases classified elsewhereEssential (primary) hypertensionGenera lized anxiety disorderPneumoniaO ther specified disorder of bone density 1 Shun Valdovinos [address], [address], [place], [place], [address] , [place]. tel:[phone] OFFICE/OUTPA TIENT VISIT, [facility], [address] [place], [address], [place] tel:[phone] [facility] lip swelling1 (chief complaint)r a (chief complaint)H TN (chief complaint) Angioneurotic edema, initial encounterPain in unspecified jointEssential (primary) hypertension 1 Shun Alvarenga. [address], [place], [place], [address] , [place]. tel:[phone] OFFICE/OUTPA TIENT VISIT, EST [facility], [address], [place], [place], [address], [place] tel:[phone] [facility] sleep apnea1 (chief complaint)a nxiety1 (chief complaint)j oint pain1 (chief complaint)c ataract1 (chief complaint)l eg itching1 (chief complaint) Generalized anxiety disorderItchCatara ct in diseases classified elsewhereFatiguePa in in unspecified jointOther specified disorder of bone density 1 hSun Alvarenga. [address], [address], [place], [place], [address] , [place]. [phone] OFFICE/OUTPA TIENT VISIT, EST [facility], [address] [place], [address], [place] tel:[phone] [facility] osteopneia1 (chief complaint)g lucose1 (chief complaint)j oint pain1 (chief complaint)a nxiety1 (chief complaint) Pain in unspecified jointHyperglycemia Other specified disorder of bone densityGeneralized anxiety disorder Jun-0 0 Shun Lyle. [address], [address], [place], [place], [address] , [place]. tel:[phone] PREV VISIT, EST, 65 & OVER [facility], [address], [place], [place], [address], [place] tel:[phone] [facility] Physical (chief complaint) Encounter for general adult medical exam w abnormal findingsInsomnia, unspecifiedPain in unspecified jointGeneralized anxiety disorderEssential (primary) hypertensionGERD w/o esophagitis Mar- 0 Shun Alvarenga. [address], [place], [place], [address] , [place]. tel:[phone] OFFICE/OUTPA TIENT VISIT, [facility], [address], [place], [place], [address], [place] tel:[phone] [facility] RA (chief complaint)a nxiety1 (chief complaint)i nsomnia1 (chief complaint)P VC (chief complaint) Essential (primary) hypertensionInsomn iaGeneralized anxiety disorderOther specified disorder of bone densityIron deficiencyPain in unspecified joint 9 Shun Alvarenga. [address], [place], [place], [address] , [place]. tel:[phone] Referring Provider: Armond [address], [place], [place], [address]. tel:[phone] OFFICE/OUTPA TIENT VISIT, [facility], [address], [place], [place], [address], [place] tel:[phone] [facility] joint pain1 (chief complaint)l ow iron1 (chief complaint) Elevated C-reactive protein (CRP)Pain in unspecified jointIron deficiency 9 Shun Alvarenga. [address], [place], [place], [address] , [place]. tel:[phone] Referring Provider: [address], [place], [place], [address]. tel:[phone] OFFICE/OUTPA TIENT VISIT, [facility], [address], [place], [place], [address], [place] tel:[phone] [facility] abd pain1 (chief complaint) Abdominal painPain in left hip 9 Shun Alvarenga. [address], [place], [place], [address] , [place]. tel:[phone] Referring Provider: [address], [place], [place], [address]. tel:[phone] PREV VISIT, EST, 65 & OVER [facility], [address], [place], [place], [address], [place] tel:[phone] [facility] Physical (chief complaint) Encntr for general adult medical exam w/o abnormal findings 9 Shun Alvarenga. [address], [place], [place], [address] , [place]. tel:[phone] Referring Provider: Lyle Hoffmann, [address], [place], [place], [address]. tel:[phone] OFFICE/OUTPA TIENT VISIT, [facility], [address], [place], [place], [address], [place] tel:[phone] [facility] Medicine HTN (chief complaint)i nsomnia1 (chief complaint)a nxiety1 (chief complaint)P VC (chief complaint) Sleep apneaEssential (primary) hypertensionGenera lized anxiety disorderInsomnia, unspecifiedEncount er for screening for osteoporosisBody mass index (BMI) 40.0-44.9, adult 8 Shun Alvarenga. [address], [place], [place], [address] , [place]. tel:[phone] Referring Provider: Armond [address], [place], [place], [address]. tel:[phone] OFFICE/OUTPA TIENT VISIT, [facility], [address], [place], [place], [address], [place] tel:[phone] [facility] sleep apnea1 (chief complaint)H TN (chief complaint)a nxiety1 (chief complaint)i nsomnia1 (chief complaint) Body mass index (BMI) 40.0-44.9, adultSleep apneaVentricular premature depolarizationEsse ntial (primary) hypertensionGenera lized anxiety disorder 8 Shun Alvarenga. [address], [place], [place], [address] , [place]. tel:[phone] Referring Provider: Arm[address], [place], [place], [address]. tel:[phone] PREV VISIT, EST, 65 & OVER [facility], [address], [place], [place], [address], [place] tel:[phone] [facility] Physical (chief complaint) Encntr for general adult medical exam w/o abnormal findings Sep- 8 Shun Alvarenga. [address], [place], [place], [address] , [place]. tel:[phone] Referring Provider: [address], [place], [place], [address]. tel:[phone] OFFICE/OUTPA TIENT VISIT, [facility], [address], [place], [place], [address], [place] tel:[phone] [facility] sleep apnea1 (chief complaint)P VC (chief complaint)a nxiety1 (chief complaint)i nsomnia1 (chief complaint) Sleep apneaVentricular premature depolarizationGene ralized Anxiety DisorderInsomnia 7 Shun Alvarenga. [address], [place], [place], [address] , [place]. tel:[phone] Referring Provider: [address], [place], [place], [address]. tel:[phone] OFFICE/OUTPA TIENT VISIT, [facility], [address], [place], [place], [address], [place] tel:[phone] [facility] cough1 (chief complaint)P VC (chief complaint)a nxiety1 (chief complaint)i nsomnia1 (chief complaint) Ventricular premature depolarizationEsse ntial (primary) hypertensionGenera lized Anxiety DisorderAcute bronchitis 7 Shun Alvarenga. [address], [place], [place], [address] , [place]. tel:[phone] Referring Provider: Armond [address], [place], [place], [address]. tel:[phone] OFFICE/OUTPA TIENT VISIT, [facility], [address], [place], [place], [address], [place] tel:[phone] [facility] cat scratch (chief complaint)c ough1 (chief complaint) Acute bronchitisBody mass index (BMI) 40.0-44.9, adultCat-scratch disease 7 Shun Alvarenga. [address], [place], [place], [address] , [place]. tel:[phone] Referring Provider: Lyle Hoffmann, [address], [place], [place], [address]. tel:[phone] OFFICE/OUTPA TIENT VISIT, [facility], [address], [place], [place], [address], [place] tel:[phone] [facility] anxiety1 (chief complaint)t oe pain1 (chief complaint)f atigue1 (chief complaint)P VC (chief complaint) Generalized Anxiety DisorderFatigueVen tricular premature depolarizationPain in left toe(s) 7 Shun Alvarenga. [address], [place], [place], [address] , [place]. tel:[phone] Referring Provider: Armond [address], [place], [place], [address]. tel:[phone] PREV VISIT, EST, AGE 40-64 [facility], [address], [place], [place], [address], [place] tel:[phone] [facility] PHysical (chief complaint) Encntr for general adult medical exam w/o abnormal findings 7 Shun Alvarenga. [address], [place], [place], [address] , [place]. tel:[phone] Referring Provider: Armond [address], [place], [place], [address]. tel:[phone] OFFICE/OUTPA TIENT VISIT, EST [facility], [address], [place], [place], [address], [place] tel:[phone] [facility] Insomnia1 (chief complaint)a nxiety1 (chief complaint)H TN (chief complaint)e osorio (chief complaint) Essential (primary) hypertensionInsomn ia, unspecifiedGeneral ized anxiety disorderEdema 6 Shun Alvarenga. [address], [place], [place], [address] , [place]. tel:[phone] OFFICE/OUTPA TIENT VISIT, [facility], [address], [place], [place], [address], [place] tel:[phone] [facility] abd pain1 (chief complaint)a nxiety1 (chief complaint)b ack pain1 (chief complaint) Generalized abdominal painGeneralized anxiety disorderInsomnia, unspecifiedLow back pain 6 Shun Alvarenga. [address], [place], [place], [address] , [place]. [phone] Referring Provider: Arm[address], [place], [place], [address]. tel:[phone] OFFICE/OUTPA TIENT VISIT, [facility], [address], [place], [place], [address], [place] tel:[phone] [facility] cough1 (chief complaint) Acute bronchitis 6 Shun Alvarenga. [address], [place], [place], [address] , [place]. tel:[phone] Referring Provider: Arm[address], [place], [place], [address]. tel:[phone] PREV VISIT, EST, AGE 40-64 [facility], [address], [place], [place], [address], [place] tel:[phone] [facility] Physical (chief complaint) Encntr for general adult medical exam w/o abnormal findings 6 Shun Alvarenga. [address], [place], [place], [address] , [place]. tel:[phone] Referring Provider: Lyle Hoffmann [address], [place], [place], [address]. tel:[phone] OFFICE/OUTPA TIENT VISIT, [facility], [address], [place], [place], [address], [place] tel:[phone] [facility] anxiety1 (chief complaint)H TN1 (chief complaint)i nsomnia1 (chief complaint)e dema1 (chief complaint) Essential (primary) hypertensionOther insomniaEdemaGener alized anxiety disorder 5 Shun Alvarenga. [address], [place], [place], [address] , [place]. tel:[phone] Referring Provider: Lyle Hoffmann, [address], [place], [place], [address]. tel:[phone] OFFICE/OUTPA TIENT VISIT, [facility], [address], [place], [place], [address], [place] tel:[phone] [facility] diarrhea (chief complaint)d iarrehea (chief complaint) GastroenteritisAbd ominal painScreening for malignant neoplasm of colon 5 Shun Alvarenga. [address], [place], [place], [address] , [place]. tel:[phone] Referring Provider: Armond [address], [place], [place], [address]. tel:[phone] OFFICE/OUTPA TIENT VISIT, [facility], [address], [place], [place], [address], [place] tel:[phone] [facility] HTN (chief complaint)a nxiety (chief complaint)h eadache (chief complaint)f ajleel bite (chief complaint) Insomnia, unspecifiedGeneral ized anxiety disorderUnspecifie d essential hypertensionDietar y surveillance and counseling 5 Shun Alvarenga. [address], [place], [place], [address] , [place]. tel:[phone] Referring Provider: Armond [address], [place], [place], [address]. tel:[phone] OFFICE/OUTPA TIENT VISIT, [facility], [address], [place], [place], [address], [place] tel:[phone] [facility] headache (chief complaint)d mona (chief complaint) Dietary surveillance and counselingHeadache Dizziness 5 Shun Alvarenga. [address], [place], [place], [address] , [place]. tel:[phone] Referring Provider: Lyle Hoffmann, [address], [place], [place], [address]. tel:[phone] OFFICE/OUTPA TIENT VISIT, EST [facility], [address], [place], [place], [address], [place] tel:[phone] [facility] Medicine osteopenia (chief complaint)c ough (chief complaint) Dietary surveillance and counselingDisorder of bone and cartilage, unspecifiedBronchi tis, AcuteBody Mass Index 38.0-38.9, adult 5 Shun Alva[address]ga. [address], [place], [place], [address] , [place]. tel:[phone] Referring Provider: Lyle Hoffmann [address], [place], [place], [address]. tel:[phone] OFFICE/OUTPA TIENT VISIT, EST [facility], [address], [place], [place], [address], [place] tel:[phone] [facility] cold symptoms (chief complaint) Dietary surveillance and counselingBronchit is, Acute Fe 5 Shun Alvarenga. [address], [place], [place], [address] , [place]. tel:[phone] Referring Provider: Armond [address], [place], [place], [address]. tel:[phone] PREV VISIT, EST, AGE 40-64 [facility], [address], [place], [place], [address], [place] tel:[phone] [facility] Medicine Physical (chief complaint) Dietary surveillance and counselingRoutine Medical ExamRoutine Medical Exam 4 Shun Alvarenga. [address], [place], [place], [address] , [place]. tel:[phone] Referring Provider: Armond [address], [place], [place], [address]. tel:[phone] OFFICE/OUTPA TIENT VISIT, [facility], [address], [place], [place], [address], [place] tel:[phone] [facility] abdominal pain (chief complaint) Dietary surveillance and counselingAbdomina l PainChest Tightness 4 Shun Alvarenga. [address], [place], [place], [address] , [place]. tel:[phone] Referring Provider: Armond [address], [place], [place], [address]. tel:[phone] OFFICE/OUTPA TIENT VISIT, [facility], [address], [place], [place], [address], [place] tel:[phone] [facility] knee pain (chief complaint)a nxiety (chief complaint)H TN (chief complaint) Pain in joint involving lower legDietary surveillance and counselingGenerali zed anxiety disorderHypertensi on, Unspecified 4 Shun Alvarenga. [address], [place], [place], [address] , [place]. tel:[phone] Referring Provider: Arm[address], [place], [place], [address]. tel:[phone] OFFICE/OUTPA TIENT VISIT, [facility], [address], [place], [place], [address], [place] tel:[phone] [facility] sick (chief complaint)d ysphagia (chief complaint) Urinary Tract InfectionViral Infection, UnspecifiedDYSPHAG IA NOS 3 Shun Alvarenga. [address], [place], [place], [address] , [place]. tel:[phone] Referring Provider: Armond [address], [place], [place], [address]. tel:[phone] OFFICE/OUTPA TIENT VISIT, EST [facility], [address], [place], [place], [address], [place] [phone] [facility] Leg edema (chief complaint) Dietary surveillance and counselingVenous (peripheral) insufficiency, unspecifiedEdema 3 Shun Alvarenga. [address], [place], [place], [address] , [place]. [phone] Referring Provider: Armond [address], [place], [place], [address]. tel:[phone] OFFICE/OUTPA TIENT VISIT, [facility], [address], [place], [place], [address], [place] [phone] [facility] Medicine itchy rash (chief complaint)m etabolic (chief complaint) Dietary surveillance and counselingCellulit isStaphylococcus infection in conditions classified elsewhere and of unspecified site, staphylococcus, unspecifiedHyperte nsion, UnspecifiedMetabol ic Syndrome 3 Shun Alvarenga. [address], [place], [place], [address] , [place]. tel:[phone] Referring Provider: Armond [address], [place], [place], [address]. tel:[phone] PREV VISIT, EST, AGE 40-64 [facility], [address], [place], [address], [place] [phone] [facility] Physical (chief complaint) Dietary surveillance and counselingRoutine Medical ExamRoutine Medical Exam 3 Shun Alvarenga. [address], [place], [place], [address] , [place]. [phone] Referring Provider: Armond [address], [place], [place], [address]. tel:[phone] OFFICE/OUTPA TIENT VISIT, [facility], [address], [place], [place], [address], tel:[phone] [facility] chronic pain (chief complaint)e sedrick satiety (chief complaint)D epression (chief complaint) Dietary surveillance and counselingInsomnia , OtherCHRONIC PAIN NECMajor depressive affective disorder, single episode, mild degreeHypertension , Unspecified 2 Shun Alvarenga. [address], [address], [place], [place], [address] , [place]. [phone] Referring Provider: Armond Leon [address], [place], [place], [id number]. tel:[phone] OFFICE/OUTPA TIENT VISIT, EST [facility], [address], [place], [place], [address], tel:[phone] [facility] fatigue (chief complaint)u nable to get word out (chief complaint) Dietary surveillance and counselingHeadache SPEECH DISTURBANCE NECMajor depressive affective disorder, single episode, mild degree 2 Shun Alvarenga. [address], [address], [place], [place], [address] , [place]. [phone] Referring Provider: Armond Leon [facility] [address], [place], [place], [address]. tel:[phone] PREV VISIT, EST, AGE 40-64 [facility], [address], [place], [place], [address], [place] tel:[phone] [facility] back pain (chief complaint)p hysical (chief complaint)a nxiety (chief complaint)i nsomnia (chief complaint) Dietary surveillance and counselingRoutine Medical ExamHypertension, UnspecifiedInsomni a, OtherLumbagoRoutin e Medical Exam 2 Shun Alvarenga. [address], [address], [place], [place], [address] , [place]. [phone] Referring Provider: Armond Leon [facility] [address], [place], [place], [id number]. tel:[phone] Family History Family Member Type Diagnosis Age At Onset Mother Problem (finding) Alive and well Brother Problem (finding) Coronary artery disease Father Problem (finding) Stroke Payers Payer name Insurance type Covered democrat ID Authoriza tion(s) No Information Social History Type Description Quantity Date Captured Comments Alcohol Use Details No Caffeine Use Details Unknown Tobacco Use Status Never smoked tobacco 2023 Smoking Status Never smoker Sex Female Vital Signs Date / Time: Height Weight BMI Pulse Rate Blood Pressure Temperature Respiratory Rate Body Surface Area Head Circumference BMI percentile Pulse Ox Inhaled Ox 7:44 AM 67.00 in 244.00 lbs 38.2 2 kg/m eter (2) Chief Complaint And Reason For Visit From encounter dated 03/07/2024 17:44'. anxiety1 (chief complaint). Description: Pt has chronic anxiety and depression and insomnia Pt takes cymbalta and xanax PRN and doing ok Pt needs xanax refilled. flank pain1 (chief complaint). Description: Pt states that right flank pain resolved with celebrex and also chiropractice adjustment. Pt denies any sciatica Pt denies any loss of bowel or bladder control or saddle are paresthesia. Pt had CT done which showed thickening of the endometrial complex and right inguinal hernia containing fat. Pt denies any vaginal bleeding. Pt denies any pelvic pain Plan Of Treatment Date Type Action Status Goal Special diet education compl eted Goal Special diet education compl eted Goal Special diet education compl eted Goal Special diet education compl eted Goal Special diet education compl eted Goal Special diet education compl eted Goal Special diet education compl eted Goal Special diet education compl eted Referral Ordered: SARY AVERY -[facility] : Obstetrics & Gynecology (related to Endometrial hyperplasia w/o atypia) ordered Referral Ordered: US, PELVIC (NONOBSTETRIC); ordered Referral Referred To: SARY AVERY [address] [place], [place], [phone] Ordered: Referrals: [facility] : Obstetrics & Gynecology. SARY AVERY. Evaluate and treat ordered Referral Ordered: CT ABD & PELVIS W/O CONTRAST ordered Referral Ordered: Dermatology (related to Cellulitis of chest wall) ordered Referral Referred To: MONIKA HAWKINS [address] [facility] [place], [place], [address] Ordered: Referrals: MONIKA HAWKINS. Evaluate and treat ordered Referral Referred To: Fabien Antoine [address] [place], [phone] Ordered: Referrals: Fabien Antoine. Evaluate and treat ordered Referral Ordered: Dermatology (related to Methicillin resis staph infct causing diseases classd elswhr) ordered Referral Ordered: MAMMOGRAM, SCREENING ordered Referral Ordered: Referrals: Dermatology. Evaluate and treat ordered Referral Referred To: Domenica Flowers [address] [place], [phone] Ordered: Referrals: Domenica Flowers. Evaluate and treat ordered Referral Referred To: Сергей Lowery [address], [address] Ordered: Referrals: Сергей Lowery. Evaluate and treat ordered Referral Ordered: Rheumatology (related to Pain in unspecified joint) ordered Referral Ordered: Referrals: Rheumatology. Evaluate and treat ordered Referral Ordered: Fabien Antoine -[facility] : Orthopaedic Surgery (related to Pain in unspecified joint) ordered Referral Ordered: Fabien Antoine -Rheumatology (related to Pain in unspecified joint) ordered Referral Referred To: Fabien Antoine [address] [place], [place] [id number] Ordered: Referrals: [facility] : Orthopaedic Surgery. Fabien Antoine. Evaluate and treat ordered Referral Referred To: Fabien Antoine [address] [place], [place] [id number] Ordered: Referrals: Rheumatology. Fabien Antoine. Evaluate and treat ordered Referral Ordered: MRI JNT OF LWR EXTRE W/O DYE Left hip ordered Referral Ordered: AP PELVIS AND BILATERAL HIPS XRAY ordered Referral Ordered: DXA BONE DENSITY, AXIAL ordered Referral Ordered: Toñito Madsen (related to Ventricular premature depolarization) ordered Referral Referred To: Toñito Madsen [address] [place], [place] [id number] Ordered: Referrals: Toñito Madsen. Evaluate and treat ordered Referral Ordered: Otolaryngology (related to Encntr for general adult medical exam w/o abnormal findings) ordered Referral Ordered: Referrals: Otolaryngology. Evaluate and treat ordered Referral Ordered: FOOT XRAY, TWO VIEW Left ordered Referral Ordered: SLEEP STUDY, ATTENDED ordered Referral Ordered: US EXAM, ABDOM, COMPLETE ordered Referral Ordered: LUMBAR XRAY AP AND LAT ONLY ordered Referral Ordered: COLONOSCOPY AND BIOPSY ordered Referral Ordered: CT HEAD/BRAIN W/O DYE ordered Referral Ordered: CHEST X-RAY PA/LAT TWO-VIEWS ordered Referral Ordered: US VENOUS DOPPLER ordered Referral Ordered: ESOPHAGRAM (BARIUM SWALLOW) ordered Referral Ordered: MRI BRAIN W/O & W/DYE ordered Referral Ordered: DOPPLER ECHO EXAM, HEART ordered Referral Ordered: US CAROTID ordered Referral Ordered: UPPER GI W/ SMALL BOWEL SERIES ordered History Of Present Illness Encounter Date Complaint History Of Prese nt Illness flank pain1 Pt states that r ight flank pain resolved with celebrex and also chiropractice adjustment. Pt denies any sciatica Pt denies any loss of bowel or bladder control or saddle are paresthesia. Pt had CT done which showed thickening of the endometrial complex and right inguinal hernia containing fat. Pt denies any vaginal bleeding. Pt denies any pelvic pain anxiety1 Pt has chronic a nxiety and depression and insomnia Pt takes cymbalta and xanax PRN and doing ok Pt needs xanax refilled. palpitation1 Pt has occasiona l palpitation. Pt denies any chest pain Pt has occasional PVCs. Pt is on metoprolol. Pt sees cardiology anxiety1 Pt has chronic a nxiety and depression. Pt takes cymbalta and xanax PRn and doing ok Pt denies any suicidal or homicidal thought. Pt denies any crying spells flank pain1 Pt c/o acute rig ht flank pain for 10 days Pt denies any urinary symptoms. Pt went to urgent care and she had positive urine dip and she was given keflex but the urine culture was negative per urgent care Pt denies any fever, chill , nausea, vomiting Pt denies any pelvic pain pt is on keflex for 7 days now and she has one day left. Pt denies any fever, loss of appetite Pt c/o sharp pain right flank pain, worse with movement. Pt denies any appetite loss .Pt denies any injury or lifting anything heavy. Pt states that the sharp pain is getting worse. Pt denies any rash skin sore1 Pt c/o diffuse s kin itching all over body for several months Pt denies any sick contact Pt denies any night time itching. Pt basically itches all the time Pt scratches her back causing some open sore as well Pt recently was on Vancomycin infusion from post op right knee infection and she finished vancomycin last week. Pt states that the itching started before the vancomycin. Pt denies any fever, chill. Pt denies any bleeding or drainage from the itching. insomnia1 Pt has chronic i nsomnia Pt takes trazodone qhs PRn and doing ok. 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 Pt denies any fatigue anxiety1 Pt has chronic a nxiety and depression pt takes cymbalta and xanax PRN and doing ok Pt denies any suicidal or homicidal thought Pt denies any crying spells. knee pain1 Pt is s/p right knee surgery but she has a loose wire on right knee from surgical implant and she needs to have emergency surgery by ortho and she needs surgical clearance. Pt tolerated previous surgery well osteopenia1 Pt has osteopeni a. Pt denies any spontaneous fracture. Pt takes calcium and D. Pt has not done bone density yet knee pain1 Pt is s/p right total knee replacement 3 months ago and she was doing fine until about 4 weeks ago. Pt tried to stand up from toilet and she felt acute pop around right knee area with swelling and she could not bear any weight on right knee. Pt went to ER by ambulance and she had the swelling drained and she was to have acute right inferior patella tendon rupture. Pt saw Dr. Monika hawkins 4 weeks ago and she is plan for surgery on 06/24/22. Pt currently is able to ambulate with walker. Pt denies any pain or swelling. Pt needs surgical clearance. HTN Pt has history o f paroxymal atrial tachycardia with HTN Pt is on metoprolol only now. Her cardiology stopped norvasc since her bp has been ok without norvasc during cardiology visit recently. pt denies any chest pain or headache. Pt states that her bp has been around 130/70 at home. Pt denies any palpitation knee pain1 Pt is s/p right knee replacement two months ago and she was doing well until 04/20/22. Pt tried to get up from toilet and she heard a pop right knee and she can not get up and keep any weight on right leg. Pt had to be transferred via ambulance to ER. Pt has right inferior patella tendon tear. Pt states that her knee cap is on the side of right knee now. Pt currently using a knee wrap and her knee cap is unstable. Pt was referred to Dr. Monika Hawkins by her ortho and she has jenae today and she needs emergency referral insomnia1 Pt has chronic i nsomnia. Pt takes trazodone qhs PRN and doing ok. pt has sleep apnea but she does not use cpap knee pain1 Pt has osteoarth ritis of right knee and she saw ortho and plans for right knee replacement. Pt c/o persistent right knee pain. Pt notices occasional right knee swelling Pt denies any redness and warmth . cataract1 pt has cataract. Pt sees eye doctor. Pt needs insurance referral for eye doctor follow up. Pt denies any eye pain flushing1 Pt denies any fu rther flushing or any sweat .pt denies any night sweat Pt is postmeno Pt denies any vaginal bleeding HTN Pt takes metopro lol and norvasc. Pt has not been checking her bp at home Pt denies any edema or swelling skin Pt states that s kin lesion resolved with Bactroban Pt did not see dermatology joint pain1 Pt was evaluated by rheumatology and no RA or lupus. Pt has OA. Pt is taking cymbalta 60 mg daily now and her pain is well controlled. physical Pt needs annual physical Pt has anxiety and depression pt takes cymbalta and xanax PRN and doing ok pT denies any suicidal or homicidal thought. Pt has low D Pt takes vitamin D and calcium. Pt has insomnia Pt takes trazodone PRN only. Pt does have sleep apnea but she does not want to use cpap. Pt has paroxymal atrial tachycardia Pt denies any chest pain or palpitation. Pt takes metoprolol from cardiology. Pt does have mild cardiomegaly. pt has high ra and joint pain. Pt has jenae with rheumatology soon Pt has recurrent skin lesion with itching and sometimes bleeds when she scratches around buttock leg area for several years. Pt initially notices during summer only but now more often and more frequently. Pt denies any fever. Pt has intermittent hot flushing for several months Pt denies any vaginal bleeding Pt denies any night time bleeding. Pt denies any night sweat rash1 Pt has recurrent rash left outer thigh area for years and it comes and goes. Pt never showed to me Pt states that it itches sometimes and they comes and goes. viral infection1 Pt has cough ,c ongestion and sore throat for one week Pt went to urgent care and she had benign chest x ray and she was told that she has bronchitis. Pt was given Z-ron, prednisone, tessalon and robitussin AC and her above symptoms are improving .Pt states that she has been having diffuse burning and itching around leg and arm and feet since last week after starting above medication. Pt already finished above medication but her itching and burning feeling persisted. Pt denies any rash at all .Pt denies any fever, sob. Pt only took robitussin with codeine x one night last week. Pt denies any sob. Pt denies any visible rash except for diffuse itching and burning as if her skin on fire . Pt denies any sick contact . HTN Pt has HTN in [facility]. Pt weaned off lisinopril recently Pt denies any chest pain or headache HTN Pt has not been taking lisinopril. Pt has not been checking her bp. Pt denies any chest pain or headache anxiety1 Pt has chronic a nxiety and depression Pt takes cymbalta and xanax PRN and doing ok Pt denies any suicidal or homicidal thought Pt denies any crying spells. COVID1 Pt was diagnosed with COVID 3 weeks ago, Pt did have low grade temp with mild cough without sob 3 weeks ago. She denies any loss of taste and smell .Pt states that she got better but her cough never went away. Pt currently coughs up clear phlegm still but she denies any sob or fever or loss of taste and smell Pt is fully vaccinated without booster yet. Pt denies any GI symptoms. Pt denies any sore throat or sinus congestion. Pt denies any headache. Pt has been home self quarantine for the past 3 weeks. Pt never had any sob at all. Pt just feels slightly winded. Pt states that she does notice mild wheezing with cough. HTN Pt takes lisinop ril for many years. Pt states that she skips dose frequently. Pt also takes metoprolol ra Pt has high RA a nd multiple joint pain Pt finally made jenae with rheumatology but jenae is not until 3 months from now. Pt denies any joint swelling or redness or warmth lip swelling1 Pt c/o acute ons et of lip swelling since two days ago and resolved yesterday Pt denies any throat swelling pt denies any dysphagia or sob. Pt denies any fever, cough or wheezing Pt has mild headache which was resolved also. Pt is on lisinopril chronically but she never developed any lip swelling in the past. Pt denies any new food or new hygiene products. 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 Pt does not use CPAP. Pt feels tired all the time. Pt denies any sob anxiety1 Pt has chronic a nxiety and depression Pt takes cymbalta and xanax PRn and doing ok Pt denies any suicidal or homicidal thought pt denies any crying spells joint pain1 Pt has diffuse j oint pain. Pt has elevated RA. Pt is noncompliant with rheumatology referral. cataract1 Pt has cataract and s/p surgery Pt needs to follow up with eye doctor and she needs referral. Pt denies any vision change or loss. leg itching1 Pt c/o bilateral leg and feet itching only at night Pt denies any urge to move her leg or any neuropathy symptoms. Pt denies any rash. Pt has above symptoms for 6 months. glucose1 Pt has borderlin e high glucose Pt denies any polyuria, polydipsia . joint pain1 Pt has joint chastity n and elevated RA .Pt has not heard from acute care surgeon anxiety1 Pt has chronic a nxiety and depression Pt doing ok with cymbalta and xanax PRn .Pt denies any suicidal or homicidal thought Pt denies any crying spells osteopneia1 Pt has osteopeni a Pt has not done bone density yet Her vitamin D is low. Physical PT needs annual physical Pt has chronic anxiety and depression Pt takes cymbalta and doing ok Pt has HTN Pt takes lisinopril and her bp is ok at home and is around 130/70 recently Pt has insomnia Pt takes trazodone and doing ok Pt has some benign PVCs Pt sees cardiology Pt is wearing event monitor currently by cardiology Pt is on metoprolol Pt denies any chest pain or palpitation, pt is on metoprolol. Pt also has diffuse joint pain Pt has elevated RA. Pt is noncompliant and she never followed up with rheumatology early this year. Pt has GERD with esophageal web .Pt states that her symptoms are mild and she does not want to take any medications. Pt has been diet and exercising and she lost some weight Pt denies any GI issue or appetite loss or early satiety. Pt denies any other complaints anxiety1 Pt has anxiety a nd depression Pt takes Cymbalta and xanax PRN. Pt denies any suicidal or homicidal thought Pt denies any crying spells insomnia1 Pt has insomnia. pt has sleep apnea pt uses cpap nightly. Pt takes trazodone qhs and doing ok RA Pt has elevated RA and CRP and ESR pt has some joint pain. Pt was too busy with other work this summer so she could not make jenae with rheumatology Pt just called 3 weeks ago and she has jenae with rheumatology in 3 months. PVC Pt is on metopro lol. Pt sees cardiology Pt denies any chest pain or palpitation Pt recently quit her job and she feels less stressed. joint pain1 Pt has polyarthr algia including knee hip for several months Pt denies any los back pain or sciatica or any loss of bladder control or numbness. Pt denies any injury. Pt has elevated CRP and ESR and RA. Pt does NOT have lupus, lyme disease. Pt had knee injection by ortho but does NOT help. X ray or hip and MRI showed trochanteric tear, ischial bursitis and left labrum tear. Pt also has bilateral hip arthritis and also lumbar spondylosis. Pt does see ortho at [place]. Pt denies any injury. low iron1 Pt has slightly low iron sat but her iron and ferritin are normal. Pt is NOT anemic. Pt denies any blood loss. abd pain1 Pt c/o severe on set of sharp LLQ pain since one week ago while at a restaurant. Pt states that pain has not improved yet. Pt denies any diarrhea or constipation Pt denies any blood in stool Pt has intermittent nausea x two episodes since last week but no vomiting Pt denies any injury. Pt denies any sob pt states that pain is worse when standing up or lying on left side. Pt has 7/10 worse with standing and weight bearing Pt denies any low back pain Pt denies any sciatica or any numbness of the leg pt denies any loss of bladder control. Pt went to Er and had benign lab and also CT of abdomen and pelvis. Physical Pt needs annual physical. Pt has chronic diffuse joint pain and she feels very fatigue. Pt has sleep apnea pt uses CPAP at night. Pt denies any sob or chest pain. Pt has PVCs with palpitation. Pt takes metoprolol from cardiology. Pt has anxiety and depression Pt takes cymbalta and xanax PRn and dong ok. Pt has insomnia and she takes trazodone and doing ok. Pt c/o right knee pain for several months Pt denies any injury. Pt denies any redness or warmth. pt denies any back pain. Pt denies any other complaints. HTN Pt has HTn. Pt t akes lisinopril and BP stable. Pt denies any chest pain, headache insomnia1 Pt takes trazodo ne and sleeping ok. Pt also uses CPAP and doing ok. Pt feels more energy. pt feels better rested. anxiety1 Pt has chronic a nxiety and depression. Pt takes cymbalta and doing ok Pt denies any suicidal or homicidal thought. Pt denies any crying spells. Pt takes xanax PRn PVC Pt takes metopro lol. Pt denies any chest pain or headache or palpitation. Pt sees cardiology anxiety1 Pt has chronic a nxiety and depression. Pt takes cymbalta and doing ok Pt takes xanax PRn. Pt denies any suicidal or homicidal thought Pt denies any crying spells HTN Pt has lisinopri l. Pt has HTN Pt denies any chest pain or headache. 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 Pt is still fighting with insurance to get the CPAP set up. Pt also had holter done which showed PVCs Pt is on metoprolol now and she is seeing cardiology pt denies any chest pain or palpitation or sob insomnia1 Pt has insomnia and she takes trazodone Pt doing ok. Pt is waiting to get CPAP set up Physical Pt needs annual physical. Pt has chronic anxiety and depression. Pt takes cymbalta and xanax PRN. Pt denies any suicidal or homicidal thought. Pt denies any crying spells. Pt c/o productive coughing with green phlegm, feeling sob with coughing, sinus congestion, sore throat for one week. her grandson is also sick as well. Pt denies any fever. Pt denies any recent travel or bedrest. Pt also takes trazodone and lisinopril for insomnia and HTN. Pt denies any other complaints insomnia1 Pt has chronic s leep apnea. Pt takes trazodone and working ok. Pt denies any active issue. Pt does snore with sleep apnea anxiety1 Pt has chronic a nxiety and depression. Pt takes cymbalta and xanax PRN and doing ok. Pt deneies any suicidal or homicidal thouight. Pt denies any cyring spells. 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 Pt suppose to use 8 cm water pressure. Pt is waiting for the CPAP set up. Pt feels fatigue all day PVC Pt has frequent PVC. Pt denies any chest pain or headache. Pt is seeing cardiology. Pt had ngative lexican stress test Pt denies any chest pain or palpitation. Her holter did show multiple PVCs. Pt was told by cardiology that her PVCs are due to sleep apnea. insomnia1 Pt has insomnia. Pt takes trazodone and doing ok. Pt needs refill anxiety1 Pt has chornic a nxiety and depression. Pt takes cymbalta and xanax and doing ok. Pt denies any suicidal or homicidal thought. Pt denies any crying spells cough1 Pt c/o productiv e coughing and sinus congestion for one week Pt denies any chest pain or heaache Pt has postnasal drainage. Pt has some chset congestion Pt went to Er and had negative chest xray. Pt was given steoid but did not help. Pt denies any fever PVC Pt has some PVC on recent EKG Pt denies any chest pain or headache or sob. Her daughter is pushing her to get some cardiology work up done. Pt denies any palpitation cough1 Pt c/o productiv e and tinklish cough for the past two to 3 days. Pt denies any sore throat, sinus congestion running nose. Pt denies any chset pain or sob. Pt denies any recent travel. Pt hsa been coughing worse at night and unable to sleep cat scratch Pt c/o scratchin g by her own cat last tuesday. Pt grabed her cat and a [employer] truck came by and scared her cat and the cat scratched her left arm and bicep area and also right side of abdomen. Pt notices mild redness around the area,, Pt denies any pus drainage. her cat shot is uptodate. Pt denies any fever anxiety1 Pt has chronic a nxiety and depression. Pt takes cymbalta and xanax and doing ok Pt denie any suicidal or homicidal thought toe pain1 Pt has toe pain due to arthritis Pt states that her tingling both feet is not all the time and she is not taking neurontin anymore. Pt doing ok currently fatigue1 Pt has chronic f atigue. 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 Pt has not made appointment with ENT/sleep yet pT denies any worsening symptmos PVC Pt recently went to Er for sinus infection. SHe did not have any chest pain. EKG showed pvc. Pt denies any chest pain or palpitation or sob PHysical Pt needs annual physical. Pt has poor sleep but she does not have sleep apnea. Pt has poor sleep effeiciency and also limb movement. Pt does c/o feeling fatigue in AM. Pt also c/o intermittent left big toe pain without any redness for 6 months. Pt states that sometimes the left big toe feels hot and swelling slighlty. Pt denies any injury. Pt c/o acute worsening pain since last night. Pt feels slightly tingling bottom of both feet and she also has bilateral dorsal foot pain for one week. Pt denies any other complaints. Pt denies urge to move her leg at night. pt deies any foot injury. edema Pt has LE edema Pt takes lasix and KCL and doing ok Pt denies any edema. HTN Pt takes lisinor il. Pt denies any chest pain or headache. anxiety1 Pt has chronic a nxiety and depression Pt takes cymbalta and xanax. Pt denies any suicidal or homicidal thought Pt denies any crying spells Insomnia1 Pt has insomnia. Pt takes trazodone and doing ok. Pt states that she snores and she feels fatigue sometimes Pt denies any trouble with breathing at night abd pain1 Pt c/o buring pa in around epigastric area for one week. Pt denies any nauea, vomiting. Pt has some diarrhea without blood. Pt notices pain radiating to her back sometimes. Pt rarely takes NSAID. Pt states that pain is worse with food. Pt has 6/10 pain daily. Pt denies any chset pain or SOB anxiety1 Pt has chornic a nxiety and depression Pt takes cymbalta and xanax and doing ok. PT denies any suiciadl or homicidal thought Pt denies any crying spells back pain1 Pt has low back pain for several months Pt denies any sciatica Pt wants back xray. pt denies any loss of bowel or bladder control cough1 Pt c/o persisten t cough with green phlegm for two weeks. Pt denies sore throat, running nose, ear pain Pt denies any chest pain or headache. Pt states that she could not sleep due to cough. No chest pain or SOB Physical Pt needs annual physical. Pt has chronic anxiety and depression. Pt takes cymbalta and doing ok. Pt denies any suicidal or homicdial thought. Pt c/o coughing up phlegm and sore throat and sinus congestion. Pt missed work for 3 days due to illness. Pt denies any fever. Pt also has chronic HTN Pt takes lisinopril and donig ok. Pt denies any chest pain or headache. Pt denies any other complaints edema1 Pt has LE edema. Pt takes lasix and KCL. Pt tries to eat low salt diet. She does not have any swelling now anxiety1 Pt has chronic a nxiety and depression. She has a lot of stress at work and home. Pt denies any sucidal or homicdial thought. Pt doing ok with cymbalta and xanax PRN. Pt denies any crying spells. Pt denies any feeling of hopelessness HTN1 Pt has HTN. Pt t akes lisinopril and her BP is ok insomnia1 Pt has chornic i nsomnia. Pt takes trazodone and doing ok. Pt denies any snonring or any trouble with breathing at night. Pt denies any fatigue diarrhea diarrehea Pt c/o nonbloody diarrhea and some midepigastric pain for 4 days. Pt denies any nauea, vomiting. Pt staes that she has good appetite but everytime she eats anything, she has diarrhea one hour later. Pt feels crampy pain. pt denies any fever. No sick contact Pt denies any recent travel. PT has been having 7-8 times of diarreha for the past 3 days but she has not had any diarrhea today. Pt notices slightly more pain with food. HTN Pt has HTN. Pt d enies any chest pain or headache. anxiety The patient pres ents with anxious/fearful thoughts but denies fatigue. The patient denies any headache, nausea, urinary frequency, vomiting and weight gain. Additional information: Pt has chronic anxiety and depression andinsomnia. Pt takes cymbalta and xanax and trazodone and working ok. Pt denies any suicidal thought. headache Pertinent negati ves include memory loss or vomiting. Additional information: No more headache. Head CT normal. flee bite Pt has some ? fl ee bite both leg and she notices some red spot. Pt denies any itching. Pt denies any leg pain. Pt denies any fever dizzy Pt feels slighlt y off balance. Pt denies any fall. Pt feels slightly photophobic. No vision loss headache Pertinent negati ves include vomiting. Additional information: pt hit right side of head on the car last Tuesday by accident. Pt denies any syncope. Pt saw some stars. Pt has persist headache, 5/10 since the injury. Pt states that her left eye wants to close whenever she press on the right side of head. Pt denies any vision loss. Pt states that she has headche daily since the injury. Pt tried OTC med but not helping. Pt denies any nausea, vomiting. Instructions Date Instruction Additional Infor mation Increase physical activity Relat ed to Insomnia Weight management Related to Ins omnia Special diet education Related t o Body mass index (BMI) 40.0-44.9, adult Special diet education Related t o Body mass index (BMI) 40.0-44.9, adult Weight management Related to Kaylah vated C-reactive protein (CRP) Medications as instructed Relate d to Abdominal pain Special diet education Related t o Body mass index (BMI) 40.0-44.9, adult Increase activity. Related to En cntr for general adult medical exam w/o abnormal findings Perform monthly self breast examinations. Related to Encntr for general adult medical exam w/o abnormal findings Perform monthly self breast examinations. Related to Encntr for general adult medical exam w/o abnormal findings Increase activity. Related to En cntr for general adult medical exam w/o abnormal findings Special diet education Related t o Body mass index (BMI) 40.0-44.9, adult Special diet education Related t o Body mass index (BMI) 40.0-44.9, adult Increase physical activity Relat ed to Sleep apnea Weight management Related to Sle ep apnea Weight management Related to Sle ep apnea Increase physical activity Relat ed to Sleep apnea Special diet education Related t o Body mass index (BMI) 40.0-44.9, adult Special diet education Related t o Body mass index (BMI) 40.0-44.9, adult Perform monthly self breast examinations. Related to Encntr for general adult medical exam w/o abnormal findings Increase activity. Related to En cntr for general adult medical exam w/o abnormal findings Increase physical activity Relat ed to Sleep apnea Weight management Related to Sle ep apnea Prescribed Activity and Exercise Education Related to Dietary Surveillance and Counseling Prescribed Diet Educ ation/Lifestyle Education Regarding Diet Related to Dietary Surveillance and Counseling Weight management Related to Acu te bronchitis Increase physical activity Relat ed to Acute bronchitis Prescribed Diet Educ ation/Lifestyle Education Regarding Diet Related to Dietary Surveillance and Counseling Prescribed Activity and Exercise Education Related to Dietary Surveillance and Counseling Increase physical activity Relat ed to Ventricular premature depolarization Weight management Related to Otf tricular premature depolarization Prescribed Diet Educ ation/Lifestyle Education Regarding Diet Related to Dietary Surveillance and Counseling Prescribed Activity and Exercise Education Related to Dietary Surveillance and Counseling Prescribed Activity and Exercise Education Related to Dietary Surveillance and Counseling Prescribed Diet Educ ation/Lifestyle Education Regarding Diet Related to Dietary Surveillance and Counseling Prescribed Activity and Exercise Education Related to Dietary Surveillance and Counseling Prescribed Diet Educ ation/Lifestyle Education Regarding Diet Related to Dietary Surveillance and Counseling Prescribed Activity and Exercise Education Related to Dietary Surveillance and Counseling Prescribed Diet Educ ation/Lifestyle Education Regarding Diet Related to Dietary Surveillance and Counseling Prescribed Activity and Exercise Education Related to Dietary Surveillance and Counseling Prescribed Diet Educ ation/Lifestyle Education Regarding Diet Related to Dietary Surveillance and Counseling Prescribed Activity and Exercise Education Related to Dietary Surveillance and Counseling Prescribed Diet Educ ation/Lifestyle Education Regarding Diet Related to Dietary Surveillance and Counseling Prescribed Activity and Exercise Education Related to Dietary Surveillance and Counseling Prescribed Diet Educ ation/Lifestyle Education Regarding Diet Related to Dietary Surveillance and Counseling Prescribed Activity and Exercise Education Related to Dietary Surveillance and Counseling Prescribed Diet Educ ation/Lifestyle Education Regarding Diet Related to Dietary Surveillance and Counseling Prescribed Activity and Exercise Education Related to Dietary Surveillance and Counseling Prescribed Diet Educ ation/Lifestyle Education Regarding Diet Related to Dietary Surveillance and Counseling Prescribed activity/ exercise education Related to Dietary surveillance and counseling Special diet education Related t o Dietary surveillance and counseling Decrease caloric intake Related to Dietary surveillance counseling Physical activity counseling Rel ated to Dietary surveillance counseling Physical activity counseling Rel ated to Dietary surveillance counseling Decrease caloric intake Related to Dietary surveillance counseling Physical activity counseling Rel ated to Dietary surveillance counseling Decrease caloric intake Related to Dietary surveillance counseling Dietary counseling Related to Di etary surveillance counseling Decrease caloric intake Related to Dietary surveillance counseling Decrease caloric intake Related to Dietary surveillance counseling Dietary counseling Related to Di etary surveillance counseling Dietary counseling Related to Di etary surveillance counseling Decrease caloric intake Related to Dietary surveillance counseling Dietary counseling Related to Di etary surveillance counseling Decrease caloric intake Related to Dietary surveillance counseling Dietary counseling Related to Di etary surveillance counseling Decrease caloric intake Related to Dietary surveillance counseling Dietary counseling Related to Di etary surveillance counseling Decrease caloric intake Related to Dietary surveillance counseling Decrease caloric intake Related to Dietary surveillance counseling Dietary counseling Related to Di etary surveillance counseling Dietary counseling Related to Di etary surveillance counseling Decrease caloric intake Related to Dietary surveillance counseling Assessments Type Assessment Date assessment Generalized anxiety disorder Mar assessment Right lower quadrant pain assessment Inguinal hernia assessment Endometrial hyperplasia w/o atyp ia Mental Status Date Cognitive Assessment Orientation - Langley ed to time, place, person, situation.
--- OUTSIDE RECORDS SUMMARY | 2024-09-10 08:26 | XMS_ITS | Referral Summary ---
Author Organization [facility] Address [address] [place] [address] Phone Care Team Providers Care Land Examiner Name Role Phone Lyle Hoffmann MD Primary Care Provider [phone] Сергей Lowery MD Unavailable [phone] Encounters Date Type Department Care Team Description 08/28/2024 Telephone [facility] [address] [place] [address] Mirta Aceves MD request for appt 07/24/2024 1:00 PM FILLER AND TRIMMER Office Visit [facility] [address] [facility] [address], [address] [place] [address] Mirta Aceves MD Pseudophakia of both eyes (Primary Dx) from Last 3 Months Allergies Active Allergy Reactions Criticality Noted Date [...] Diagnosed Date Pseudophakia of both eyes 07/24/2024 Social History Tobacco Use Types Packs/Day Years [...] on file Legal Sex Female 12:55 AM FILLER AND TRIMMER Gender Identity Not on file Sexual Orientation Not on file Plan of Treatment Not on file Insurance [facility] MEDIC[facility] Address: [facility] [address] [place] [address] Care Teams Land Examiner Relationship Specialty Start Date End Date Lyle Hoffmann MD [address] [address] PCP - General Family Medicine 07/24/24 еСргей Lowery MD [address] [place] [address] Consulting Physician Ophthalmology 07/24/24
== END 2024-09-10 08:04 | disposition home or self-care (01) ==
PROVIDERS: PCP Emergency Medicine; Visit Provider Emergency Medicine
DX: Z12.31 Encounter for screening mammogram for malignant neoplasm of breast (principal); M85.89 Other specified disorders of bone density and structure, multiple sites; Z78.0 Asymptomatic menopausal state; Z13.820 Encounter for screening for osteoporosis
CPT/HCPCS: 77063; 77067; 77080

== ENCOUNTER 2024-10-06 01:17 | Emergency (ER) | payer MEDICARE, SELFPAY ==
--- NOTE | ~2024-10-06 | US_ITS ---
EXAMINATION: US venous doppler LE RT DATE: 10/06/2024 07:46 INDICATION: Right lower limb pain, swelling and erythema TECHNIQUE: Grayscale ultrasound images without and with compression and Doppler ultrasound images of the right lower extremity veins were obtained. COMPARISON: None. FINDINGS: The visualized portions of right common femoral vein, profunda (deep) femoral vein, femoral vein, pop liteal vein, peroneal trunk, peroneal veins, gastrocnemius vein and greater saphenous vein outflow ar e patent. Noncompressible occlusive appearing deep venous thrombosis in the right posterior tibial ve ins. IMPRESSION: 1. Elyzv-tpk-knqp deep venous anastomosis in the right posterior tibial veins. Dr. Sharpe discusse d these findings with Dr. Osorio at 7:55 AM. Reviewed, dictated and finalized at location A. IMPRESSION: 1. Lsqbi-gmc-fqog deep venous anastomosis in the right posterior tibial veins. Dr. Sharpe discussed these findings with Dr. Osorio at 7:55 AM.
[2024-10-06 01:18] VITALS: BP 148/63; PULSE 85; RESP 16; TEMP 36.6; O2SAT 98
--- OUTSIDE RECORDS SUMMARY | 2024-10-06 01:19 | XMS_ITS | Clinical Summary ---
Author Organization [facility] Address [address] [place] [address] Phone Care Team Providers Care Transmission System Operator Name Role Phone Lyle Hoffmann MD Primary Care Provider [phone] Сергей Lowery MD Unavailable [phone] Allergies Active Allergy Reactions Criticality Noted Date Comments Lisinopril Cough Low 07/24/2024 Medications traZODone (DESYREL) 150 mg tablet Take 1 tablet (150 mg total) by mouth nightly at bedtime Active tolterodine LA (DETROL LA) 4 mg 24 hr capsule Take 1 capsule (4 mg total) by mouth daily 4 Active prednisoLONE acetate (PRED FORTE) 1 % ophthalmic suspension 4 Active permethrin (ELIMITE) 5 % cream Apply topically 4 Active ibuprofen (ADVIL,MOTRIN) 400 mg tablet Take 1 tablet (400 mg total) by mouth every 6 (six) hours [address] (CYMBALTA) 30 mg capsule Take 1 capsule (30 mg total) by mouth daily Active ALPRAZolam (XANAX) 0.25 mg tablet Take 1 tablet (0.25 mg total) by mouth 2 (two) times a day as needed Active prednisoLONE acetate (PRED FORTE) 1 % ophthalmic suspension Administer 1 drop into both eyes 4 (four) times a day for 14 days, THEN 1 drop daily for 7 days. 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 [facility] [address] [facility], [address] [place] [address] Neela Mckeon COA 08/28/2024 Telephone [facility] [address] [place] [address] Mirta Aceves MD request for appt 07/24/2024 1:00 PM NC MANAGER Office Visit [facility] [address] [facility] [address] [facility], [address] [place] [address] Mirta Aceves MD Pseudophakia of [...] on file Legal Sex Female 12:55 AM NC MANAGER Gender Identity Not on file Sexual Orientation [...] 2002 Well Visit 65+ 2017 Covid-19 Vaccine ( season) 2024, 04/22/2021 Influenza Vaccine (#1) 2024 Insurance [facility] MEDICARE ADVANTAGE Care Teams Transmission System Operator Relationship Specialty Start Date End Date Lyle Hoffmann MD [address] [address] PCP - General Family Medicine 07/24/24 Сергей Lowery MD [address] [place] [address] Consulting Physician Ophthalmology 07/24/24
--- OUTSIDE RECORDS SUMMARY | 2024-10-06 01:19 | XMS_ITS | Referral Summary ---
Author Organization [facility] Address [address] [place] [address] Phone Care Team Providers Care Dive Supervisor Name Role Phone Lyle Hoffmann MD Primary Care Provider [phone] Сергей Lowery MD Unavailable [phone] Encounters Date Type Department Care Team Description 09/18/2024 Telephone [facility] [address] [facility] [address] [facility], [address] [place] [address] Neela Mckeon COA 09/18/2024 3:45 PM CDT Office Visit [facility] [address] 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 [facility] [address], [address] [place] [address] Mirta Aceves MD Pseudophakia of [...] left 09/18/2024 Pseudophakia of both eyes 07/24/2024 Social History [...] on file Legal Sex Female 12:55 AM MAIL OFFICER Gender Identity Not on file Sexual Orientation Not on file Plan of Treatment Not on file Insurance [facility] MEDICARE [facility] Address: [address] [address] Care Teams Dive Supervisor Relationship Specialty Start Date End Date Lyle Hoffmann MD [address] [place] [address] PCP - General Family Medicine 07/24/24 Сергей Lowery MD [address] [place] [address] Consulting Physician Ophthalmology 07/24/24
--- OUTSIDE RECORDS SUMMARY | 2024-10-06 01:19 | XMS_ITS | Clinical Summary ---
Author Organization [facility] Address [address], [facility] [address] [place] [address] Phone Care Team Providers Care Director Wholesale Name Role Phone Unavailable Primary Care Provider Unavailabl e Medications OOM-[id number]-[id number]-Na Sulf-Na Asc-C (MOVIPREP) [address] Use as directed on the bottle for colonoscopy prep. 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
--- OUTSIDE RECORDS SUMMARY | 2024-10-06 01:19 | XMS_ITS | Clinical Summary ---
Author Organization [facility] Address [address] [place] [address] Care Team Providers Care Digital Product Manager Name Role Phone Unavailable Primary Care Provider [...]
--- OUTSIDE RECORDS SUMMARY | 2024-10-06 01:19 | XMS_ITS | Continuity of Care Document ---
Author Organization [facility] Address [address] [place] [address] Phone Care Team Providers Care Ruling Technician Name Role Phone Lyle Hoffmann MD Unavailable Unavailable Allergies, Adverse Reactions, Alerts Substance Reaction Status Criticality No Known Allergies Active No Inform ation Medications Medication Instructions Dosage Effective Dates (start - stop) Status Comments Fosamax 70 mg tablet take 1 tablet by oral route every week in the morning, at least 30 min before first food, beverage, or medication of day 70 MG - Active Cymbalta 60 mg capsule,delayed release take 1 capsule by oral route every day 60 MG - Active trazodone 150 mg tablet take 1 tablet by oral route every day at bedtime - Active avoid driving or operate machines Xanax 0.25 mg tablet take 1 tablet by oral route 2 times every day as needed 0.25 MG - Active avoid drivin g or operate machines, PRn for anxiety Procedures Procedure Date PREV VISIT, EST, 65 & OVER OFFICE/OUTPATIENT [...] Diagnoses Date Provider Providers Copied on Encounter PREV VISIT, EST, 65 & OVER [facility], [place], [address], [place], [place], [address], [place] tel:[phone] [facility] Medicine physical (chief complaint) Encounter for general adult medical exam w abnormal findingsGeneralize d anxiety disorderPalpitatio nsOsteoporosisEsse ntial (primary) hypertension Sep-2 0 5 Shun Alvarenga. [address], [place], [place], [address] , [place]. tel:[phone] OFFICE/OUTPA TIENT VISIT, EST [facility], [place], [address], [place], [place], [address], [place] tel:[phone] [facility], [place] anxiety1 (chief complaint)f lank pain1 (chief complaint) Generalized anxiety disorderRight lower quadrant painInguinal herniaEndometrial hyperplasia w/o atypia Sep-0 4 Shun Alvarenga. [address], [place], [place], [address] , [place]. tel:[phone] OFFICE/OUTPA TIENT VISIT, EST [facility], [place], [address], [place], [place], [address], [place] tel:[phone] [facility] [place] flank pain1 (chief complaint)a nxiety1 (chief complaint)p alpitation1 (chief complaint) Right lower quadrant painGeneralized anxiety disorderPalpitatio ns Aug- 4 Shun Alvarenga. [address], [place], [place], [address] , [place]. tel:[phone] OFFICE/OUTPA TIENT VISIT, EST [facility], [place], [address], [place], [place], [address], [place] tel:[phone] [facility] [place] skin sore1 (chief complaint)i nsomnia1 (chief complaint)s leep apnea1 (chief complaint)a nxiety1 (chief complaint) Pain in right kneePrimary insomniaGeneralize d anxiety disorderCellulitis of chest wallObstructive sleep apnea hypopnea Aug- 4 Shun Alvarenga. [address], [place], [place], [address] , [place]. tel:[phone] OFFICE/OUTPA TIENT VISIT, [facility], [address], [place], [place], [address], [place] tel:[phone] [facility], [place] knee pain1 (chief complaint) Pain in right knee 3 Shun Alvarenga. [address], [place], [place], [address] , [place]. tel:[phone] OFFICE/OUTPA TIENT VISIT, [facility], [address], [place], [place], [address], [place] tel:[phone] [facility], [place] knee pain1 (chief complaint)H TN (chief complaint)o steopenia1 (chief complaint) Essential (primary) hypertensionPain in right kneeOther specified disorder of bone densityEncounter for oth screening for malignant neoplasm of breastAtrial (paroxysmal) tachycardia 2 Shun Alvarenga. [address], [place], [place], [address] , [place]. [phone] OFFICE/OUTPA TIENT VISIT, [facility], [address] [place], [address], [place] tel:[phone] [facility], [place] knee pain1 (chief complaint)i nsomnia1 (chief complaint) Primary insomniaPain in right knee 2 Shun Alvarenga. [address], [place], [place], [address] , [place]. tel:[phone] OFFICE/OUTPA TIENT VISIT, [facility], [address] [place], [address], [place] tel:[phone] [facility], [place] knee pain1 (chief complaint)c ataract1 (chief complaint) Unilateral primary osteoarthritis, right kneeCataract in diseases classified elsewhere 2 Shun Lyle. [address], [place], [place], [address] , [place]. tel:[phone] OFFICE/OUTPA TIENT VISIT, [facility], [address], [place], [place], [address], [place] tel:[phone] [facility] [place] HTN (chief complaint)s kin (chief complaint)f lushing1 (chief complaint)j oint pain1 (chief complaint) Essential (primary) hypertensionOsteoa rthritisFlushingOt her specified disorder of bone density 2 Shun Alvarenga. [address], [place], [place], [address] , [place]. tel:[phone] PREV VISIT, [facility], 65 & OVER [facility], [place], [address], [place], [place], [address], [place] tel:[phone] [facility] [place] physical (chief complaint) Encounter for general adult medical exam w abnormal findingsEssential (primary) hypertensionGenera lized anxiety disorderInsomniaCa rdiomegalyAtrial tachycardiaOther specified disorder of bone densitySleep apneaMethicillin resis staph infct causing diseases classd elswhr 2 Shun Lyle. [address], [place], [place], [address] , [place]. tel:[phone] OFFICE/OUTPA TIENT VISIT, [facility], [address], [place], [place], [address], [place] tel:[phone] [facility] [place] viral infection1 (chief complaint)r ash1 (chief complaint)H TN (chief complaint) Viral infectionEssential (primary) hypertensionRashIt ch 2 Shun Alvarenga. [address], [place], [place], [address] , [place]. tel:[phone] OFFICE/OUTPA TIENT VISIT, [facility], [address] [place], [address], [place] tel:[phone] [facility] [place] COVID1 (chief complaint)H TN (chief complaint)a nxiety1 (chief complaint) Viral infectionCataract in diseases classified elsewhereEssential (primary) hypertensionGenera lized anxiety disorderPneumoniaO ther specified disorder of bone density 1 Shun Valdovinos [address], [place], [place], [address] , [place]. tel:[phone] OFFICE/OUTPA TIENT VISIT, [facility], [address], [place], [place], [address], [place] tel:[phone] [facility] [place] lip swelling1 (chief complaint)r a (chief complaint)H TN (chief complaint) Angioneurotic edema, initial encounterPain in unspecified jointEssential (primary) hypertension 1 Shun Valdovinos [address], [place], [place], [address] , [place]. [phone] OFFICE/OUTPA TIENT VISIT, [facility], [address], [place], [place], [address], [place] tel:[phone] [facility] [place] sleep apnea1 (chief complaint)a nxiety1 (chief complaint)j oint pain1 (chief complaint)c ataract1 (chief complaint)l eg itching1 (chief complaint) Generalized anxiety disorderItchCatara ct in diseases classified elsewhereFatiguePa in in unspecified jointOther specified disorder of bone density 1 Shun Valdovinos [address], [place], [place], [address] , [place]. [phone] OFFICE/OUTPA TIENT VISIT, [facility], [address], [place], [place], [address], [place] tel:[phone] [facility] [place] osteopneia1 (chief complaint)g lucose1 (chief complaint)j oint pain1 (chief complaint)a nxiety1 (chief complaint) Pain in unspecified jointHyperglycemia Other specified disorder of bone densityGeneralized anxiety disorder 0 Shun Alvarenga. [address], [place], [place], [address] , [place]. tel:[phone] PREV VISIT, EST, 65 & OVER [facility], [place], [address], [place], [place], [address], [place] tel:[phone] [facility] [place] Physical (chief complaint) Encounter for general adult medical exam w abnormal findingsInsomnia, unspecifiedPain in unspecified jointGeneralized anxiety disorderEssential (primary) hypertensionGERD w/o esophagitis Mar- 0 Shun Leah[address], [place], [place], [address] , [place]. tel:[phone] OFFICE/OUTPA TIENT VISIT, [facility], [address], [place], [place], [address], [place] tel:[phone] [facility] [place] RA (chief complaint)a nxiety1 (chief complaint)i nsomnia1 (chief complaint)P VC (chief complaint) Essential (primary) hypertensionInsomn iaGeneralized anxiety disorderOther specified disorder of bone densityIron deficiencyPain in unspecified joint 9 Shun [address], [place], [place], [address] , [place]. tel:[phone] Referring Provider: [address], [place], [place], [address]. tel:[phone] OFFICE/OUTPA TIENT VISIT, [facility], [address], [place], [place], [address], [place] tel:[phone] [facility] [place] joint pain1 (chief complaint)l ow iron1 (chief complaint) Elevated C-reactive protein (CRP)Pain in unspecified jointIron deficiency 9 Shun [address], [place], [place], [address] , [place]. [phone] Referring Provider: [address], [place], [place], [address]. tel:[phone] OFFICE/OUTPA TIENT VISIT, [facility], [address], [place], [place], [address], [place] tel:[phone] [facility] [place] abd pain1 (chief complaint) Abdominal painPain in left hip 9 Hoffmann Lyle. [address], [place], [place], [address] , [place]. tel:[phone] Referring Provider: Lyle Hoffmann [address], [place], [place], [address]. tel:[phone] PREV VISIT, EST, 65 & OVER [facility], [place], [address], [place], [place], [address], [place] tel:[phone] [facility], [place] Physical (chief complaint) Encntr for general adult medical exam w/o abnormal findings 9 Shun Alvarenga. [address], [place], [place], [address] , [place]. tel:[phone] Referring Provider: [address], [place], [place], [address]. tel:[phone] OFFICE/OUTPA TIENT VISIT, [facility], [address], [place], [place], [address], [place] tel:[phone] [facility], [place] HTN (chief complaint)i nsomnia1 (chief complaint)a nxiety1 (chief complaint)P VC (chief complaint) Sleep apneaEssential (primary) hypertensionGenera lized anxiety disorderInsomnia, unspecifiedEncount er for screening for osteoporosisBody mass index (BMI) 40.0-44.9, adult 8 Shun Alvarenga. [address], [place], [place], [address] , [place]. tel:[phone] Referring Provider: Arm[address], [place], [place], [address]. tel:[phone] OFFICE/OUTPA TIENT VISIT, [facility], [address], [place], [place], [address], [place] tel:[phone] [facility], [place] sleep apnea1 (chief complaint)H TN (chief complaint)a nxiety1 (chief complaint)i nsomnia1 (chief complaint) Body mass index (BMI) 40.0-44.9, adultSleep apneaVentricular premature depolarizationEsse ntial (primary) hypertensionGenera lized anxiety disorder 8 Shun Alvarenga. [address], [place], [place], [address] , [place]. tel:[phone] Referring Provider: [address], [place], [place], [address]. tel:[phone] PREV VISIT, EST, 65 & OVER [facility], [place], [address], [place], [place], [address], [place] tel:[phone] [facility], [place] Physical (chief complaint) Encntr for general adult medical exam w/o abnormal findings 8 Shun Alvarenga. [address], [place], [place], [address] , [place]. tel:[phone] Referring Provider: [address], [place], [place], [address]. tel:[phone] OFFICE/OUTPA TIENT VISIT, [facility], [address], [place], [place], [address], [place] tel:[phone] [facility] [place] sleep apnea1 (chief complaint)P VC (chief complaint)a nxiety1 (chief complaint)i nsomnia1 (chief complaint) Sleep apneaVentricular premature depolarizationGene ralized Anxiety DisorderInsomnia 7 Shun Alvarenga. [address], [place], [place], [address] , [place]. tel:[phone] Referring Provider: Arm[address], [place], [place], [address]. tel:[phone] OFFICE/OUTPA TIENT VISIT, [facility], [address], [place], [place], [address], [place] tel:[phone] [facility] [place] cough1 (chief complaint)P VC (chief complaint)a nxiety1 (chief complaint)i nsomnia1 (chief complaint) Ventricular premature depolarizationEsse ntial (primary) hypertensionGenera lized Anxiety DisorderAcute bronchitis 7 Shun Alvarenga. [address], [place], [place], [address] , [place]. [phone] Referring Provider: Arm[address], [place], [place], [address]. tel:[phone] OFFICE/OUTPA TIENT VISIT, [facility], [address], [place], [place], [address], [place] tel:[phone] [facility] [place] cat scratch (chief complaint)c ough1 (chief complaint) Acute bronchitisBody mass index (BMI) 40.0-44.9, adultCat-scratch disease 7 Shun Alvarenga. [address], [place], [place], [address] , [place]. tel:[phone] Referring Provider: Armond [address], [place], [place], [address]. tel:[phone] OFFICE/OUTPA TIENT VISIT, [facility], [address], [place], [place], [address], [place] tel:[phone] [facility] [place] anxiety1 (chief complaint)t oe pain1 (chief complaint)f atigue1 (chief complaint)P VC (chief complaint) Generalized Anxiety DisorderFatigueVen tricular premature depolarizationPain in left toe(s) 7 Shun Alvarenga. [address], [place], [place], [address] , [place]. [phone] Referring Provider: [address], [place], [place], [address]. tel:[phone] PREV VISIT, EST, AGE 40-64 [facility], [place], [address], [place], [place], [address], [place] tel:[phone] [facility] [place] PHysical (chief complaint) Encntr for general adult medical exam w/o abnormal findings 7 Shun Alvarenga. [address], [place], [place], [address] , [place]. tel:[phone] Referring Provider: Arm[address], [place], [place], [address]. tel:[phone] OFFICE/OUTPA TIENT VISIT, EST [facility], [place], [address], [place], [place], [address], [place] tel:[phone] [facility] [place] Insomnia1 (chief complaint)a nxiety1 (chief complaint)H TN (chief complaint)e osorio (chief complaint) Essential (primary) hypertensionInsomn ia, unspecifiedGeneral ized anxiety disorderEdema 6 Shun Alvarenga. [address], [place], [place], [address] , [place]. tel:[phone] OFFICE/OUTPA TIENT VISIT, [facility], [address], [place], [place], [address], [place] tel:[phone] [facility] [place] abd pain1 (chief complaint)a nxiety1 (chief complaint)b ack pain1 (chief complaint) Generalized abdominal painGeneralized anxiety disorderInsomnia, unspecifiedLow back pain 6 Shun Alvarenga. [address], [place], [place], [address] , [place]. tel:[phone] Referring Provider: Arm[address], [place], [place], [address]. tel:[phone] OFFICE/OUTPA TIENT VISIT, [facility], [address], [place], [place], [address], [place] tel:[phone] [facility], [place] cough1 (chief complaint) Acute bronchitis Oct-0 6 Shun Alvarenga. [address], [place], [place], [address] , [place]. tel:[phone] Referring Provider: [address], [place], [place], [address]. tel:[phone] PREV VISIT, EST, AGE 40-64 [facility], [place], [address], [place], [place], [address], [place] tel:[phone] [facility], [place] Physical (chief complaint) Encntr for general adult medical exam w/o abnormal findings 6 Shun Alvarenga. [address], [place], [place], [address] , [place]. tel:[phone] Referring Provider: Arm[address], [place], [place], [address]. tel:[phone] OFFICE/OUTPA TIENT VISIT, [facility], [address], [place], [place], [address], [place] tel:[phone] [facility] [place] anxiety1 (chief complaint)H TN1 (chief complaint)i nsomnia1 (chief complaint)e dema1 (chief complaint) Essential (primary) hypertensionOther insomniaEdemaGener alized anxiety disorder 5 Shun Alvarenga. [address], [place], [place], [address] , [place]. tel:[phone] Referring Provider: Lyle Hoffmann, [address] [facility] [address], [place], [place], [address]. tel:[phone] OFFICE/OUTPA TIENT VISIT, [facility], [address], [place], [place], [address], [place] tel:[phone] [facility] [place] diarrhea (chief complaint)d iarrehea (chief complaint) GastroenteritisAbd ominal painScreening for malignant neoplasm of colon 5 Shun Alvarenga. [address], [place], [place], [address] , [place]. tel:[phone] Referring Provider: Armond Leon [facility] [address], [place], [place], [address]. tel:[phone] OFFICE/OUTPA TIENT VISIT, [facility], [address], [place], [place], [address], [place] tel:[phone] [facility] [place] HTN (chief complaint)a nxiety (chief complaint)h eadache (chief complaint)f jaleel bite (chief complaint) Insomnia, unspecifiedGeneral ized anxiety disorderUnspecifie d essential hypertensionDietar y surveillance and counseling 5 Shun Alvarenga. [address], [place], [place], [address] , [place]. tel:[phone] Referring Provider: [address], [place], [place], [address]. tel:[phone] OFFICE/OUTPA TIENT VISIT, [facility], [address], [place], [place], [address], [place] [phone] [facility] [place] headache (chief complaint)d mona (chief complaint) Dietary surveillance and counselingHeadache Dizziness 5 Shun Alvarenga. [address], [place], [place], [address] , [place]. [phone] Referring Provider: Arm[address], [place], [place], [address]. tel:[phone] OFFICE/OUTPA TIENT VISIT, [facility], [address], [place], [place], [address], [place] tel:[phone] [facility] [place] osteopenia (chief complaint)c ough (chief complaint) Dietary surveillance and counselingDisorder of bone and cartilage, unspecifiedBronchi tis, AcuteBody Mass Index 38.0-38.9, adult 5 Shun Alvarenga. [address], [place], [place], [address] , [place]. [phone] Referring Provider: Arm[address], [place], [place], [address]. tel:[phone] OFFICE/OUTPA TIENT VISIT, EST [facility], [place], [address], [place], [place], [address], [place] [phone] [facility] [place] cold symptoms (chief complaint) Dietary surveillance and counselingBronchit is, Acute Fe- 5 Shun Alvarenga. [address], [place], [place], [address] , [place]. [phone] Referring Provider: Armond [address], [place], [place], [address]. tel:[phone] PREV VISIT, EST, AGE 40-64 [facility], [place], [address], [place], [place], [address], [place] tel:[phone] [facility] [place] Physical (chief complaint) Dietary surveillance and counselingRoutine Medical ExamRoutine Medical Exam 4 Shun Alvarenga. [address], [place], [place], [address] , [place]. tel:[phone] Referring Provider: Lyle Hoffmann, [address], [place], [place], [address]. tel:[phone] OFFICE/OUTPA TIENT VISIT, [facility], [address], [place], [place], [address], [place] tel:[phone] [facility] [place] abdominal pain (chief complaint) Dietary surveillance and counselingAbdomina l PainChest Tightness 4 Shun Alva[address]ga. [address], [place], [place], [address] , [place]. tel:[phone] Referring Provider: [address], [place], [place], [address]. tel:[phone] OFFICE/OUTPA TIENT VISIT, [facility], [address], [place], [place], [address], [place] tel:[phone] [facility] [place] knee pain (chief complaint)a nxiety (chief complaint)H TN (chief complaint) Pain in joint involving lower legDietary surveillance and counselingGenerali zed anxiety disorderHypertensi on, Unspecified 4 Shun Alvarenga. [address], [place], [place], [address] , [place]. tel:[phone] Referring Provider: [address], [place], [place], [address]. tel:[phone] OFFICE/OUTPA TIENT VISIT, [facility], [address], [place], [place], [address], [place] tel:[phone] [facility] [place] sick (chief complaint)d ysphagia (chief complaint) Urinary Tract InfectionViral Infection, UnspecifiedDYSPHAG IA NOS 3 Shun Alvarenga. [address], [place], [place], [address] , [place]. tel:[phone] Referring Provider: Lyle Hoffmann, [address], [place], [place], [address]. tel:[phone] OFFICE/OUTPA TIENT VISIT, EST [facility], [place], [address] [place], [address], [place] tel:[phone] [facility] [place] Leg edema (chief complaint) Dietary surveillance and counselingVenous (peripheral) insufficiency, unspecifiedEdema 3 Shun Alvarenga. [address], [place], [place], [address] , [place]. tel:[phone] Referring Provider: Armond [address], [place], [place], [address]. tel:[phone] OFFICE/OUTPA TIENT VISIT, EST [facility], [place], [address] [place], [address], [place] tel:[phone] [facility] [place] itchy rash (chief complaint)m etabolic (chief complaint) Dietary surveillance and counselingCellulit isStaphylococcus infection in conditions classified elsewhere and of unspecified site, staphylococcus, unspecifiedHyperte nsion, UnspecifiedMetabol ic Syndrome 3 Shun Alvarenga. [address], [place], [place], [address] , [place]. tel:[phone] Referring Provider: Armond [address], [place], [place], [address]. tel:[phone] PREV VISIT, EST, AGE 40-64 [facility], [place], [address], [place], [place], [address], [place] [phone] [facility] [place] Physical (chief complaint) Dietary surveillance and counselingRoutine Medical ExamRoutine Medical Exam 3 Shun Alvarenga. [address], [place], [place], [address] , [place]. tel:[phone] Referring Provider: Lyle Hoffmann, [address], [place], [place], [address]. tel:[phone] OFFICE/OUTPA TIENT VISIT, [facility], [address] [address], [place], [place], [id number], [phone] [facility], [place] chronic pain (chief complaint)e sedrick satiety (chief complaint)D epression (chief complaint) Dietary surveillance and counselingInsomnia , OtherCHRONIC PAIN NECMajor depressive affective disorder, single episode, mild degreeHypertension , Unspecified Jun- 2 Shun Alvarenga. [address], [place], [place], [id number] , [place]. [phone] Referring Provider: Lyle Hoffmann, [address], [place], [place], [id number]. tel:[phone] OFFICE/OUTPA TIENT VISIT, [facility], [address], [place], [place], [id number], [place] tel:[phone] [facility], [place] fatigue (chief complaint)u nable to get word out (chief complaint) Dietary surveillance and counselingHeadache SPEECH DISTURBANCE NECMajor depressive affective disorder, single episode, mild degree 2 Shun Alvarenga. [address], [place], [place], [address] , [place]. tel:[phone] Referring Provider: Armond Leon [facility], [place], [place], [id number]. tel:[phone] PREV VISIT, EST, AGE 40-64 [facility], [place], [address], [place], [place], [id number], [place] [phone] [facility], [place] back pain (chief complaint)p hysical (chief complaint)a nxiety (chief complaint)i nsomnia (chief complaint) Dietary surveillance and counselingRoutine Medical ExamHypertension, UnspecifiedInsomni a, OtherLumbagoRoutin e Medical Exam 0 2 Shun Alvarenga. [address], [place], [place], [id number] , [place]. tel:[phone] Referring Provider: Armond Leon [facility], [place], [place], [id number]. tel:[phone] Family History Family Member Type Diagnosis Age At Onset Mother Problem (finding) Alive and well Brother Problem (finding) Coronary artery disease Father Problem (finding) Stroke Payers Payer name Insurance type Covered democrat ID Authoririsa tikevin(s) [facility] [id number] Social History Type Description Quantity Date Captured Comments Alcohol Use Details No Caffeine Use Details Unknown Tobacco Use Status Never smoked tobacco 2024 Smoking Status Never smoker Sex Female Vital Signs Date / Time: Height Weight BMI Pulse Rate Blood Pressure Temperature Respiratory Rate Body Surface Area Head Circumference BMI percentile Pulse Ox Inhaled Ox 9:20 AM 67.00 in 256.60 lbs 40.1 9 kg/m eter (2) 80 /min 150/78 mm[Hg] 97.1 F 16 /min Chief Complaint And Reason For Visit From encounter dated '09/20/2024 09:15'. physical (chief complaint). Description: Pt needs annual physical Pt has chronic anxiety and depression Pt takes cymbalta and doing ok Pt takes trazodone qhs PRN for insomnia Pt takes xanax very rarely Pt denies any suicidal or homicidal thought pt denies any crying spells. Pt has osteoporosis. Pt takes calcium and D and weight bearing exercise. 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 Pt denies any vaginal bleeding. Pt denies any other complaints Plan Of Treatment Date Type Action Status [...] [place], PELVIC (NONOBSTETRIC); ordered Referral Referred To: BENNIE SARY [address] [place], [place], [phone] Ordered: Referrals: Allopathic & Osteopathic Physicians : Obstetrics & Gynecology. SARY AVERY. Evaluate and treat ordered Referral Ordered: CT ABD & PELVIS W/O CONTRAST ordered Referral Ordered: Dermatology (related to Cellulitis of chest wall) ordered Referral Referred To: MONIKA HAWKINS [address] [facility] [place], [place], [id number] Ordered: Referrals: MONIKA HAWKINS. Evaluate and treat ordered Referral Referred To: Fabien Antoine [address] [place], [phone] Ordered: Referrals: Fabien Antoine. Evaluate and treat ordered Referral Ordered: Dermatology (related to Methicillin resis staph infct causing diseases classd elswhr) ordered Referral Ordered: MAMMOGRAM, SCREENING ordered Referral Ordered: Referrals: Dermatology. Evaluate and treat ordered Referral Referred To: Domenica Flowers [address] [place], [phone] Ordered: Referrals: Domenica Flowers. Evaluate and treat ordered Referral Referred To: Сергей Lowery [address] [place], [address] Ordered: Referrals: Сергей Lowery. Evaluate and treat [...] Antoine [address] [place], [place] [id number] Ordered: Referrals: Allopathic & Osteopathic Physicians : Orthopaedic Surgery. Fabien Antoine. Evaluate and treat ordered Referral Referred To: Fabien Antoine [address] [place], [place] [id number] Ordered: Referrals: Rheumatology. Fabien Antoine. Evaluate and treat ordered Referral Ordered: MRI JNT OF LWR EXTRE W/O DYE Left hip ordered Referral Ordered: AP PELVIS AND BILATERAL HIPS XRAY ordered Referral Ordered: DXA BONE DENSITY, AXIAL ordered Referral Ordered: Toñito Madsen (related to Ventricular premature depolarization) ordered Referral Referred To: Toñito Madsen [address] [place], [place] [phone] Ordered: Referrals: Toñito Madsen. Evaluate and treat [...] Date Complaint History Of Prese nt Illness physical Pt needs annual physical Pt has chronic anxiety and depression Pt takes cymbalta and doing ok Pt takes trazodone qhs PRN for insomnia Pt takes xanax very rarely Pt denies any suicidal or homicidal thought pt denies any crying spells. Pt has osteoporosis. Pt takes calcium and D and weight bearing exercise. 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 Pt denies any vaginal bleeding. Pt denies any other complaints flank pain1 Pt states that r ight [...] and doing ok Pt needs xanax refilled. anxiety1 Pt has chronic a nxiety and depression. Pt takes cymbalta and xanax PRn and doing ok Pt denies any suicidal or homicidal thought. Pt denies any crying spells palpitation1 Pt has occasiona l palpitation. Pt denies any chest pain Pt has occasional PVCs. Pt is on metoprolol. Pt sees cardiology flank pain1 Pt c/o acute rig ht [...] doing ok. 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 Pt [...] contact . HTN Pt has HTN in [facility]. Pt weaned off lisinopril recently Pt denies any chest pain or headache anxiety1 Pt has chronic a nxiety and depression Pt takes cymbalta and xanax PRN and doing ok Pt denies any suicidal or homicidal thought Pt denies any crying spells. HTN Pt has not been taking lisinopril. Pt has not been checking her bp. 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 Pt does not use CPAP. Pt [...] Pt has above symptoms for 6 months. osteopneia1 Pt has osteopeni a Pt has not done bone density yet Her vitamin D is low. glucose1 Pt has borderlin e high glucose Pt denies any polyuria, polydipsia . joint pain1 Pt has joint chastity n and elevated RA .Pt has not heard from [facility] anxiety1 Pt has chronic a nxiety and depression Pt doing ok with cymbalta and xanax PRn .Pt denies any suicidal or homicidal thought Pt denies any crying spells Physical PT needs annual physical Pt has [...] lumbar spondylosis. Pt does see ortho at [place]. Pt denies any injury. low iron1 Pt [...] back pain. Pt denies any other complaints. PVC Pt takes metopro lol. Pt denies any chest pain or headache or palpitation. Pt sees cardiology anxiety1 Pt has chronic a nxiety and depression. Pt takes cymbalta and doing ok Pt denies any suicidal or homicidal thought. Pt denies any crying spells. Pt takes xanax PRn insomnia1 Pt takes trazodo ne and sleeping ok. Pt also uses CPAP and doing ok. Pt feels more energy. pt feels better rested. HTN Pt has HTn. Pt t akes lisinopril and BP stable. 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 Pt is still fighting with insurance to get the CPAP set up. Pt also had holter done which showed PVCs Pt is on metoprolol now and she is seeing cardiology pt denies any chest pain or palpitation or sob HTN Pt has lisinopri l. Pt has HTN Pt denies any chest pain or headache. Her BP is stable anxiety1 Pt has chronic a nxiety and depression. Pt takes cymbalta and doing ok Pt takes xanax PRn. Pt denies any suicidal or homicidal thought Pt denies any crying spells insomnia1 Pt has insomnia and she takes [...] and HTN. Pt denies any other complaints PVC Pt has frequent PVC. Pt denies any chest pain or headache. Pt is seeing cardiology. Pt had ngative lexican stress test Pt denies any chest pain or palpitation. Her holter did show multiple PVCs. Pt was told by cardiology that her PVCs are due to sleep apnea. anxiety1 Pt has chronic a nxiety and depression. Pt takes cymbalta and xanax PRN and doing ok. Pt deneies any suicidal or homicidal thouight. Pt denies any cyring spells. 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 Pt suppose to use 8 cm water pressure. Pt is waiting for the CPAP set up. Pt feels fatigue all day insomnia1 Pt has chronic s leep apnea. Pt takes trazodone and working ok. Pt denies any active issue. Pt does snore with sleep apnea insomnia1 Pt has insomnia. Pt takes trazodone [...] tuesday. Pt grabed her cat and a [employer] truck came by and scared her cat and the cat scratched her left arm and bicep area and also right side of abdomen. Pt notices mild redness around the area,, Pt denies any pus drainage. her cat shot is uptodate. Pt denies any fever PVC Pt recently went to [facility] for sinus infection. SHe did not have any chest pain. EKG showed pvc. Pt denies any chest pain or palpitation or sob fatigue1 Pt has chronic f atigue. 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 Pt has not made appointment with ENT/sleep yet pT denies any worsening symptmos toe pain1 Pt has toe pain due to arthritis Pt states that her tingling both feet is not all the time and she is not taking neurontin anymore. Pt doing ok currently anxiety1 Pt has chronic a nxiety and depression. Pt takes cymbalta and xanax and doing ok Pt denie any suicidal or homicidal thought PHysical Pt needs annual physical. Pt has [...] at night. pt deies any foot injury. Insomnia1 Pt has insomnia. Pt takes trazodone and doing ok. Pt states that she snores and she feels fatigue sometimes Pt denies any trouble with breathing at night anxiety1 Pt has chronic a nxiety and depression Pt takes cymbalta and xanax. Pt denies any suicidal or homicidal thought Pt denies any crying spells HTN Pt takes lisinor [place]. Pt denies any chest pain or headache. edema Pt has LE edema Pt takes lasix and KCL and doing ok Pt denies any edema. abd pain1 Pt c/o buring pa in [...] Related to Kaylah vated C-reactive protein (CRP) Special diet education Related t o Body mass index (BMI) 40.0-44.9, adult Medications as instructed Relate d to Abdominal [...] Weight management Related to Sle ep apnea Special diet education Related t o Body mass index (BMI) 40.0-44.9, adult Weight management Related to Sle ep apnea [...] general adult medical exam w/o abnormal findings Prescribed Activity and Exercise Education Related to Dietary Surveillance and Counseling Prescribed Diet Educ ation/Lifestyle Education Regarding Diet Related to Dietary Surveillance and Counseling Increase physical activity Relat ed to Sleep apnea Weight management Related to Sle ep apnea Weight management Related to Acu te bronchitis Increase physical activity Relat ed to Acute bronchitis Prescribed Diet Educ ation/Lifestyle Education Regarding Diet Related to Dietary Surveillance and Counseling Prescribed Activity and Exercise Education Related to Dietary Surveillance and Counseling Increase physical activity Relat ed to Ventricular premature depolarization Weight management Related to Otf tricular premature depolarization Prescribed Activity and Exercise Education Related to [...] Related t o Dietary surveillance and counseling Physical activity counseling Rel ated to [...] counseling Related to Di etary surveillance counseling Assessments Type Assessment Date assessment Encounter for general adult medi carlos exam w abnormal findings assessment Generalized anxiety disorder Sep assessment Palpitations assessment Osteoporosis assessment Essential (primary) hypertension Mental Status Date Cognitive Assessment Orientation - [place] ed to time, place, person, situation."
[2024-10-06 02:37] LABS: Basophils Absolute Auto 0.1 K/mm3 (0.0-0.1); Basophils Percent Auto 0.6 % (0.2-1.2); Eosinophils Absolute Auto 0.2 K/mm3 (0-0.3); Eosinophils Percent Auto 2.4 % (0-4.4); Hematocrit 40.1 % (37.0-47.0); Hemoglobin 12.1 g/dL (12.0-15.0); Immature Granulocyte Absolute 0.02 K/mm3 (0.00-0.031); Immature Granulocyte Percent A 0.2 % (0-0.5); Lymphocytes Absolute Auto 1.16 K/mm3 (0.9-3.2); Lymphocytes Percent Auto 13.7 % (18.3-44.2); Mean Corpuscular HGB Conc 30.2 g/dl (32-36); Mean Corpuscular Hemoglobin 25.3 pg (26-34); Mean Corpuscular Volume 83.9 fl (80-100); Mean Platelet Volume 10.2 fl (7.4-10.4); Monocytes Absolute Auto 0.6 K/mm3 (0.1-0.6); Monocytes Percent Auto 7.2 % (2.6-8.5); Neutrophils Absolute Auto 6.4 K/mm3 (1.3-6.7); Neutrophils Percent Auto 75.9 % (45.5-73.1); Platelet Count Result 274 k/mm3 (150-375); Red Blood Count 4.78 M/mm3 (4.2-5.4); Red Cell Distribution Width 14.7 % (11.5-14.5); White Blood Count 8.4 K/mm3 (4.5-10.0)
[2024-10-06 02:45] VITALS: BP 179/88; PULSE 76; RESP 16; TEMP 36.8; O2SAT 100
[2024-10-06 02:47] LABS: Anion Gap 7 mmol/L (4-12); Blood Urea Nitrogen 18 mg/dL (7-17); Calcium 8.9 mg/dL (8.4-10.2); Carbon Dioxide 29 mmol/L (22-30); Chloride 103 mmol/L (98-107); Estimated CRCL calculation 74 ml/min; Estimated Glomerular Filt Rate > 60; Glucose 130 mg/dL (65-110); Potassium 4.3 mmol/L (3.4-5.0); Sodium 139 mmol/L (137-145)
[2024-10-06 03:16] LABS: Prothrombin Time 13.6 Seconds (11.1-14.7)
[2024-10-06 03:17] LABS: Partial Thromboplastin Time 24.4 Seconds (22.3-36.8)
[2024-10-06 03:30] LABS: D Dimer 2.26 ug/mL (<0.48)
[2024-10-06 03:31] VITALS: BP 129/94; PULSE 70; RESP 16; O2SAT 100
--- OUTSIDE RECORDS SUMMARY | 2024-10-06 03:58 | XMS_ITS | Clinical Summary ---
Author Organization [facility] Address [address], [facility] [address] [place] [address] Phone Care Team Providers Care Window Tinter Name Role Phone Unavailable Primary Care Provider Unavailabl e Medications [id number] Sulf-Na Asc-C (MOVIPREP) 100 [address] Recon Soln Use as directed on the bottle for colonoscopy prep. 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
--- OUTSIDE RECORDS SUMMARY | 2024-10-06 03:58 | XMS_ITS | Clinical Summary ---
Author Organization [facility] Address [address] [place] [address] Care Team Providers Care Scrap Sorter Name Role Phone Unavailable Primary Care Provider [...]
--- OUTSIDE RECORDS SUMMARY | 2024-10-06 03:58 | XMS_ITS | Continuity of Care Document ---
Author Organization [facility] Address [address] [place] [address] [place] [address] Phone Care Team Providers Care Home Therapy Teacher Name Role Phone Lyle Hoffmann MD Unavailable Unavailable Allergies, Adverse Reactions, Alerts Substance Reaction Status Criticality No Known Allergies Active No Inform ation Medications Medication Instructions Dosage Effective Dates (start - stop) Status Comments trazodone 150 mg tablet take 1 tablet by oral route every day at bedtime - Active avoid driving or operate machines Cymbalta 60 mg capsule,delayed release take 1 capsule by oral route every day 60 MG - Active Fosamax 70 mg tablet take 1 tablet by oral route every week in the morning, at least 30 min before first food, beverage, or medication of day 70 MG - Active Xanax 0.25 mg tablet take 1 tablet [...] Encounter PREV VISIT, EST, 65 & OVER [facility], [address], [place], [place], [address], [place] tel:[phone] [facility] Medicine physical (chief complaint) Encounter for general adult medical exam w abnormal findingsGeneralize d anxiety disorderPalpitatio nsOsteoporosisEsse ntial (primary) hypertension Sep-2 0 5 Shun Alvarenga. [address], [place], [place], [address] , [place]. tel:[phone] OFFICE/OUTPA TIENT VISIT, EST [facility], [address], [place], [place], [address], [place] tel:[phone] [facility] anxiety1 (chief complaint)f lank pain1 (chief complaint) Generalized anxiety disorderRight lower quadrant painInguinal herniaEndometrial hyperplasia w/o atypia Sep-0 4 Shun Alvarenga. [address], [place], [place], [address] , [place]. tel:[phone] OFFICE/OUTPA TIENT VISIT, EST [facility], [address], [place], [place], [address], [place] tel:[phone] [facility] flank pain1 (chief complaint)a nxiety1 (chief complaint)p alpitation1 (chief complaint) Right lower quadrant painGeneralized anxiety disorderPalpitatio ns Aug- 4 Shun Alvarenga. [address], [place], [place], [address] , [place]. tel:[phone] OFFICE/OUTPA TIENT VISIT, EST [facility], [address], [place], [place], [address], [place] tel:[phone] [facility] skin sore1 (chief complaint)i nsomnia1 (chief complaint)s leep apnea1 (chief complaint)a nxiety1 (chief complaint) Pain in right kneePrimary insomniaGeneralize d anxiety disorderCellulitis of chest wallObstructive sleep apnea hypopnea Aug- 4 Shun Alvarenga. [address], [place], [place], [address] , [place]. tel:[phone] OFFICE/OUTPA TIENT VISIT, [facility], [address], [place], [place], [address], [place] tel:[phone] [facility] knee pain1 (chief complaint) Pain in right knee 3 Shun Alvarenga. [address], [place], [place], [address] , [place]. tel:[phone] OFFICE/OUTPA TIENT VISIT, [facility], [address], [place], [place], [address], [place] tel:[phone] [facility] knee pain1 (chief complaint)H TN (chief complaint)o steopenia1 (chief complaint) Essential (primary) hypertensionPain in right kneeOther specified disorder of bone densityEncounter for oth screening for malignant neoplasm of breastAtrial (paroxysmal) tachycardia 2 Shun Alvarenga. [address], [place], [place], [address] , [place]. [phone] OFFICE/OUTPA TIENT VISIT, [facility], [address] [place], [address], [place] tel:[phone] [facility] knee pain1 (chief complaint)i nsomnia1 (chief complaint) Primary insomniaPain in right knee 2 Shun Alvarenga. [address], [place], [place], [address] , [place]. tel:[phone] OFFICE/OUTPA TIENT VISIT, [facility], [address] [place], [address], [place] tel:[phone] [facility] knee pain1 (chief complaint)c ataract1 (chief complaint) Unilateral primary osteoarthritis, right kneeCataract in diseases classified elsewhere 2 Shun Lyle. [address], [place], [place], [address] , [place]. tel:[phone] OFFICE/OUTPA TIENT VISIT, [facility], [address], [place], [place], [address], [place] tel:[phone] [facility] HTN (chief complaint)s kin (chief complaint)f lushing1 (chief complaint)j oint pain1 (chief complaint) Essential (primary) hypertensionOsteoa rthritisFlushingOt her specified disorder of bone density 2 Shun Alvarenga. [address], [place], [place], [address] , [place]. tel:[phone] PREV VISIT, [facility], 65 & OVER [facility], [address], [place], [place], [address], [place] tel:[phone] [facility] physical (chief complaint) Encounter for general adult medical exam w abnormal findingsEssential (primary) hypertensionGenera lized anxiety disorderInsomniaCa rdiomegalyAtrial tachycardiaOther specified disorder of bone densitySleep apneaMethicillin resis staph infct causing diseases classd elswhr 2 Shun Lyle. [address], [place], [place], [address] , [place]. tel:[phone] OFFICE/OUTPA TIENT VISIT, [facility], [address], [place], [place], [address], [place] tel:[phone] [facility] viral infection1 (chief complaint)r ash1 (chief complaint)H TN (chief complaint) Viral infectionEssential (primary) hypertensionRashIt ch 2 Shun Alvarenga. [address], [place], [place], [address] , [place]. tel:[phone] OFFICE/OUTPA TIENT VISIT, [facility], [address] [place], [address], [place] tel:[phone] [facility] COVID1 (chief complaint)H TN (chief complaint)a nxiety1 (chief complaint) Viral infectionCataract in diseases classified elsewhereEssential (primary) hypertensionGenera lized anxiety disorderPneumoniaO ther specified disorder of bone density 1 Shun Valdovinos [address], [place], [place], [address] , [place]. tel:[phone] OFFICE/OUTPA TIENT VISIT, [facility], [address], [place], [place], [address], [place] tel:[phone] [facility] lip swelling1 (chief complaint)r a (chief complaint)H TN (chief complaint) Angioneurotic edema, initial encounterPain in unspecified jointEssential (primary) hypertension 1 Shun Valdovinos [address], [place], [place], [address] , [place]. [phone] OFFICE/OUTPA TIENT VISIT, [facility], [address], [place], [place], [address], [place] tel:[phone] [facility] sleep apnea1 (chief complaint)a nxiety1 (chief complaint)j oint pain1 (chief complaint)c ataract1 (chief complaint)l eg itching1 (chief complaint) Generalized anxiety disorderItchCatara ct in diseases classified elsewhereFatiguePa in in unspecified jointOther specified disorder of bone density 1 Shun Valdovinos [address], [place], [place], [address] , [place]. [phone] OFFICE/OUTPA TIENT VISIT, [facility], [address], [place], [place], [address], [place] tel:[phone] [facility] osteopneia1 (chief complaint)g lucose1 (chief complaint)j oint pain1 (chief complaint)a nxiety1 (chief complaint) Pain in unspecified jointHyperglycemia Other specified disorder of bone densityGeneralized anxiety disorder 0 Shun Alvarenga. [address], [place], [place], [address] , [place]. tel:[phone] PREV VISIT, EST, 65 & OVER [facility], [address], [place], [place], [address], [place] tel:[phone] [facility] Physical (chief complaint) Encounter for general adult medical exam w abnormal findingsInsomnia, unspecifiedPain in unspecified jointGeneralized anxiety disorderEssential (primary) hypertensionGERD w/o esophagitis Mar- 0 Shun Leahy [address], [place], [place], [address] , [place]. tel:[phone] OFFICE/OUTPA TIENT VISIT, [facility], [address], [place], [place], [address], [place] tel:[phone] [facility] RA (chief complaint)a nxiety1 (chief complaint)i nsomnia1 (chief complaint)P VC (chief complaint) Essential (primary) hypertensionInsomn iaGeneralized anxiety disorderOther specified disorder of bone densityIron deficiencyPain in unspecified joint 9 Shun Leahy [address], [place], [place], [address] , [place]. tel:[phone] Referring Provider: Arm[address], [place], [place], [address]. tel:[phone] OFFICE/OUTPA TIENT VISIT, [facility], [address], [place], [place], [address], [place] tel:[phone] [facility] joint pain1 (chief complaint)l ow iron1 (chief complaint) Elevated C-reactive protein (CRP)Pain in unspecified jointIron deficiency 9 Shun Leahy [address], [place], [place], [address] , [place]. [phone] Referring Provider: [address], [place], [place], [address]. tel:[phone] OFFICE/OUTPA TIENT VISIT, [facility], [address], [place], [place], [address], [place] tel:[phone] [facility] abd pain1 (chief complaint) Abdominal painPain in left hip 9 Hoffmann Lyle. [address], [place], [place], [address] , [place]. tel:[phone] Referring Provider: Lyle Hoffmann [address], [place], [place], [address]. tel:[phone] PREV VISIT, EST, 65 & OVER [facility], [address], [place], [place], [address], [place] tel:[phone] [facility] Physical (chief complaint) Encntr for general adult medical exam w/o abnormal findings 9 Shun Alvarenga. [address], [place], [place], [address] , [place]. tel:[phone] Referring Provider: Armond [address], [place], [place], [address]. tel:[phone] OFFICE/OUTPA TIENT VISIT, [facility], [address], [place], [place], [address], [place] tel:[phone] [facility] HTN (chief complaint)i nsomnia1 (chief complaint)a nxiety1 (chief complaint)P VC (chief complaint) Sleep apneaEssential (primary) hypertensionGenera lized anxiety disorderInsomnia, unspecifiedEncount er for screening for osteoporosisBody mass index (BMI) 40.0-44.9, adult 8 Shun Alvarenga. [address], [place], [place], [address] , [place]. tel:[phone] Referring Provider: Armond Leon [address], [place], [place], [address]. tel:[phone] OFFICE/OUTPA TIENT VISIT, [facility], [address], [place], [place], [address], [place] tel:[phone] [facility] sleep apnea1 (chief complaint)H TN (chief complaint)a nxiety1 (chief complaint)i nsomnia1 (chief complaint) Body mass index (BMI) 40.0-44.9, adultSleep apneaVentricular premature depolarizationEsse ntial (primary) hypertensionGenera lized anxiety disorder 8 Shun Alvarenga. [address], [place], [place], [address] , [place]. tel:[phone] Referring Provider: Armond [address], [place], [place], [address]. tel:[phone] PREV VISIT, EST, 65 & OVER [facility], [address], [place], [place], [address], [place] tel:[phone] [facility] Physical (chief complaint) Encntr for general adult medical exam w/o abnormal findings 8 Shun Alvarenga. [address], [place], [place], [address] , [place]. tel:[phone] Referring Provider: Armond Leon [address], [place], [place], [address]. tel:[phone] OFFICE/OUTPA TIENT VISIT, [facility], [address], [place], [place], [address], [place] tel:[phone] [facility] sleep apnea1 (chief complaint)P VC (chief complaint)a nxiety1 (chief complaint)i nsomnia1 (chief complaint) Sleep apneaVentricular premature depolarizationGene ralized Anxiety DisorderInsomnia 7 Shun Alvarenga. [address], [place], [place], [address] , [place]. tel:[phone] Referring Provider: Armond Leon [address], [place], [place], [address]. tel:[phone] OFFICE/OUTPA TIENT VISIT, [facility], [address], [place], [place], [address], [place] tel:[phone] [facility] cough1 (chief complaint)P VC (chief complaint)a nxiety1 (chief complaint)i nsomnia1 (chief complaint) Ventricular premature depolarizationEsse ntial (primary) hypertensionGenera lized Anxiety DisorderAcute bronchitis 7 Shun Alvarenga. [address], [place], [place], [address] , [place]. [phone] Referring Provider: Armond Leon [address], [place], [place], [address]. tel:[phone] OFFICE/OUTPA TIENT VISIT, [facility], [address], [place], [place], [address], [place] tel:[phone] [facility] cat scratch (chief complaint)c ough1 (chief complaint) Acute bronchitisBody mass index (BMI) 40.0-44.9, adultCat-scratch disease 7 Shun Alvarenga. [address], [place], [place], [address] , [place]. [phone] Referring Provider: Armond Leon [address], [place], [place], [address]. tel:[phone] OFFICE/OUTPA TIENT VISIT, [facility], [address], [place], [place], [address], [place] tel:[phone] [facility] anxiety1 (chief complaint)t oe pain1 (chief complaint)f atigue1 (chief complaint)P VC (chief complaint) Generalized Anxiety DisorderFatigueVen tricular premature depolarizationPain in left toe(s) 7 Shun Alvarenga. [address], [place], [place], [address] , [place]. [phone] Referring Provider: Arm[address], [place], [place], [address]. tel:[phone] PREV VISIT, EST, AGE 40-64 [facility], [address], [place], [place], [address], [place] tel:[phone] [facility] PHysical (chief complaint) Encntr for general adult medical exam w/o abnormal findings 7 Shun Alvarenga. [address], [place], [place], [address] , [place]. tel:[phone] Referring Provider: Armond Leon [address], [place], [place], [address]. tel:[phone] OFFICE/OUTPA TIENT VISIT, EST [facility], [address], [place], [place], [address], [place] tel:[phone] [facility] Insomnia1 (chief complaint)a nxiety1 (chief complaint)H TN (chief complaint)e osorio (chief complaint) Essential (primary) hypertensionInsomn ia, unspecifiedGeneral ized anxiety disorderEdema 6 Shun Alvarenga. [address], [place], [place], [address] , [place]. tel:[phone] OFFICE/OUTPA TIENT VISIT, [facility], [address], [place], [place], [address], [place] tel:[phone] [facility] abd pain1 (chief complaint)a nxiety1 (chief complaint)b ack pain1 (chief complaint) Generalized abdominal painGeneralized anxiety disorderInsomnia, unspecifiedLow back pain 6 Shun Alvarenga. [address], [place], [place], [address] , [place]. tel:[phone] Referring Provider: Armond Leon [address], [place], [place], [address]. tel:[phone] OFFICE/OUTPA TIENT VISIT, [facility], [address], [place], [place], [address], [place] tel:[phone] [facility] cough1 (chief complaint) Acute bronchitis Oct-0 6 Shun Alvarenga. [address], [place], [place], [address] , [place]. tel:[phone] Referring Provider: Armond Leon [address], [place], [place], [address]. tel:[phone] PREV VISIT, EST, AGE 40-64 [facility], [address], [place], [place], [address], [place] tel:[phone] [facility] Physical (chief complaint) Encntr for general adult medical exam w/o abnormal findings 6 Shun Alvarenga. [address], [place], [place], [address] , [place]. tel:[phone] Referring Provider: Armond Leon [address], [place], [place], [address]. tel:[phone] OFFICE/OUTPA TIENT VISIT, [facility], [address], [place], [place], [address], [place] tel:[phone] [facility] anxiety1 (chief complaint)H TN1 (chief complaint)i nsomnia1 (chief complaint)e dema1 (chief complaint) Essential (primary) hypertensionOther insomniaEdemaGener alized anxiety disorder 5 Shun Alvarenga. [address], [place], [place], [address] , [place]. tel:[phone] Referring Provider: Lyle Hoffmann, [address] [facility] [address], [place], [place], [address]. tel:[phone] OFFICE/OUTPA TIENT VISIT, [facility], [address], [place], [place], [address], [place] tel:[phone] [facility] diarrhea (chief complaint)d iarrehea (chief complaint) GastroenteritisAbd ominal painScreening for malignant neoplasm of colon 5 Shun Alvarenga. [address], [place], [place], [address] , [place]. tel:[phone] Referring Provider: Armond Leon [facility] [address], [place], [place], [address]. tel:[phone] OFFICE/OUTPA TIENT VISIT, [facility], [address], [place], [place], [address], [place] tel:[phone] [facility] HTN (chief complaint)a nxiety (chief complaint)h eadache (chief complaint)f jaleel bite (chief complaint) Insomnia, unspecifiedGeneral ized anxiety disorderUnspecifie d essential hypertensionDietar y surveillance and counseling 5 Shun Alvarenga. [address], [place], [place], [address] , [place]. tel:[phone] Referring Provider: Armond Leon [address], [place], [place], [address]. tel:[phone] OFFICE/OUTPA TIENT VISIT, [facility], [address], [place], [place], [address], [place] [phone] [facility] headache (chief complaint)d mona (chief complaint) Dietary surveillance and counselingHeadache Dizziness 5 Shun Alvarenga. [address], [place], [place], [address] , [place]. [phone] Referring Provider: Armond Leon [address], [place], [place], [address]. tel:[phone] OFFICE/OUTPA TIENT VISIT, [facility], [address], [place], [place], [address], [place] tel:[phone] [facility] osteopenia (chief complaint)c ough (chief complaint) Dietary surveillance and counselingDisorder of bone and cartilage, unspecifiedBronchi tis, AcuteBody Mass Index 38.0-38.9, adult 5 Shun Alvarenga. [address], [place], [place], [address] , [place]. [phone] Referring Provider: Armond Leon [address], [place], [place], [address]. tel:[phone] OFFICE/OUTPA TIENT VISIT, EST [facility], [address], [place], [place], [address], [place] [phone] [facility] cold symptoms (chief complaint) Dietary surveillance and counselingBronchit is, Acute Fe- 5 Shun Alvarenga. [address], [place], [place], [address] , [place]. [phone] Referring Provider: Armond Leon [address], [place], [place], [address]. tel:[phone] PREV VISIT, EST, AGE 40-64 [facility], [address], [place], [place], [address], [place] tel:[phone] [facility] Physical (chief complaint) Dietary surveillance and counselingRoutine Medical ExamRoutine Medical Exam 4 Shun Alvarenga. [address], [place], [place], [address] , [place]. tel:[phone] Referring Provider: Lyle Hoffmann, [address], [place], [place], [address]. tel:[phone] OFFICE/OUTPA TIENT VISIT, [facility], [address], [place], [place], [address], [place] tel:[phone] [facility] abdominal pain (chief complaint) Dietary surveillance and counselingAbdomina l PainChest Tightness 4 Shun Alvarenga. [address], [place], [place], [address] , [place]. tel:[phone] Referring Provider: Armond Leon [address], [place], [place], [address]. tel:[phone] OFFICE/OUTPA TIENT VISIT, [facility], [address], [place], [place], [address], [place] tel:[phone] [facility] knee pain (chief complaint)a nxiety (chief complaint)H TN (chief complaint) Pain in joint involving lower legDietary surveillance and counselingGenerali zed anxiety disorderHypertensi on, Unspecified 4 Shun Alvarenga. [address], [place], [place], [address] , [place]. tel:[phone] Referring Provider: Armond Leon [address], [place], [place], [address]. tel:[phone] OFFICE/OUTPA TIENT VISIT, [facility], [address], [place], [place], [address], [place] tel:[phone] [facility] sick (chief complaint)d ysphagia (chief complaint) Urinary Tract InfectionViral Infection, UnspecifiedDYSPHAG IA NOS 3 Shun Alvarenga. [address], [place], [place], [address] , [place]. tel:[phone] Referring Provider: Lyle Hoffmann, [address], [place], [place], [address]. tel:[phone] OFFICE/OUTPA TIENT VISIT, EST [facility], [address] [place], [address], [place] tel:[phone] [facility] Leg edema (chief complaint) Dietary surveillance and counselingVenous (peripheral) insufficiency, unspecifiedEdema 3 Shun Alvarenga. [address], [place], [place], [address] , [place]. tel:[phone] Referring Provider: Armond Leon [address], [place], [place], [address]. tel:[phone] OFFICE/OUTPA TIENT VISIT, EST [facility], [address] [place], [address], [place] tel:[phone] [facility] itchy rash (chief complaint)m etabolic (chief complaint) Dietary surveillance and counselingCellulit isStaphylococcus infection in conditions classified elsewhere and of unspecified site, staphylococcus, unspecifiedHyperte nsion, UnspecifiedMetabol ic Syndrome 3 Shun Alvarenga. [address], [place], [place], [address] , [place]. tel:[phone] Referring Provider: Armond Leon [address], [place], [place], [address]. tel:[phone] PREV VISIT, EST, AGE 40-64 [facility], [address], [place], [place], [address], [place] [phone] [facility] Physical (chief complaint) Dietary surveillance and counselingRoutine Medical ExamRoutine Medical Exam 3 Shun Alvarenga. [address], [place], [place], [address] , [place]. tel:[phone] Referring Provider: Lyle Hoffmann, [address], [place], [place], [address]. tel:[phone] OFFICE/OUTPA TIENT VISIT, [facility], [address], [place], [place], [address], [phone] [facility] chronic pain (chief complaint)e sedrick satiety (chief complaint)D epression (chief complaint) Dietary surveillance and counselingInsomnia , OtherCHRONIC PAIN NECMajor depressive affective disorder, single episode, mild degreeHypertension , Unspecified Jun- 2 Shun Alvarenga. [address], [place], [place], [address] , [place]. [phone] Referring Provider: Lyle Hoffmann, [address], [place], [place], [address]. tel:[phone] OFFICE/OUTPA TIENT VISIT, [facility], [address], [place], [place], [address], [place] tel:[phone] [facility] fatigue (chief complaint)u nable to get word out (chief complaint) Dietary surveillance and counselingHeadache SPEECH DISTURBANCE NECMajor depressive affective disorder, single episode, mild degree 2 Shun Alvarenga. [address], [address], [place], [place], [id number] , [place]. tel:[phone] Referring Provider: Armond Leon [facility], [place], [place], [id number]. tel:[phone] PREV VISIT, EST, AGE 40-64 [facility], [address], [place], [place], [id number], [place] [phone] [facility] back pain (chief complaint)p hysical (chief complaint)a nxiety (chief complaint)i nsomnia (chief complaint) Dietary surveillance and counselingRoutine Medical ExamHypertension, UnspecifiedInsomni a, OtherLumbagoRoutin e Medical Exam 0 2 Shun Alvarenga. [address], [address], [place], [place], [id number] , [place]. tel:[phone] Referring Provider: Armond Leon [facility], [place], [place], [id number]. 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 [...] SARY [address] [place], [place], [phone] Ordered: Referrals: Allopathic & Osteopathic Physicians : Obstetrics & Gynecology. SARY AVERY. Evaluate and treat ordered Referral Ordered: CT ABD & PELVIS W/O CONTRAST ordered Referral Ordered: Dermatology (related to Cellulitis of chest wall) ordered Referral Referred To: MONIKA HAWKINS [address] [facility] [place], [place], [id number] Ordered: Referrals: MONIKA HAWKINS. Evaluate and treat ordered Referral Referred To: Fabien Antoine [address] [place], [phone] Ordered: Referrals: Fabien Antoine. Evaluate and treat ordered Referral Ordered: Dermatology (related to Methicillin resis staph infct causing diseases classd elswhr) ordered Referral Ordered: MAMMOGRAM, SCREENING ordered Referral Ordered: Referrals: Dermatology. Evaluate and treat ordered Referral Referred To: Domenica Flowers [address] [place], [phone] Ordered: Referrals: Domenica Flowers. Evaluate and treat ordered Referral Referred To: Сергей Lowery [address] [place], [address] Ordered: Referrals: Сергей Lowery. Evaluate and treat [...] Antoine [address] [place], [place] [phone] Ordered: Referrals: Allopathic & Osteopathic Physicians : Orthopaedic Surgery. Fabien Antoine. Evaluate and treat ordered Referral Referred To: Fabien Antoine [address] [place], [place] [phone] Ordered: Referrals: Rheumatology. Fabien Antoine. Evaluate and treat ordered Referral Ordered: MRI JNT OF LWR EXTRE W/O DYE Left hip ordered Referral Ordered: AP PELVIS AND BILATERAL HIPS XRAY ordered Referral Ordered: DXA BONE DENSITY, AXIAL ordered Referral Ordered: Toñito Madsen (related to Ventricular premature depolarization) ordered Referral Referred To: Toñito Madsen [address] [place], [place] [phone] Ordered: Referrals: Toñito Madsen. 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 [...] doing ok. 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 [...] time bleeding. Pt denies any night sweat HTN Pt [facility]. Pt weaned off lisinopril recently Pt denies any chest pain or headache viral infection1 Pt has cough ,c ongestion [...] . Pt denies any sick contact . rash1 Pt has recurrent rash left outer thigh area for years and it comes and goes. Pt never showed to me Pt states that it itches sometimes and they comes and goes. HTN Pt has not been taking lisinopril. [...] she does notice mild wheezing with cough. lip swelling1 Pt c/o acute ons et [...] denies any lip or any facial swelling ra Pt has high RA a nd multiple joint pain Pt finally made jenae with rheumatology but jenae is not until 3 months from now. Pt denies any joint swelling or redness or warmth HTN Pt takes lisinop ril for many years. Pt states that she skips dose frequently. 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 Pt does not use CPAP. [...] elevated RA .Pt has not heard from medical appliance maker anxiety1 Pt has chronic a nxiety and [...] lumbar spondylosis. Pt does see ortho at [facility]. Pt denies any injury. low iron1 Pt [...] or headache or palpitation. 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 Pt takes trazodone and working ok. Pt denies any active issue. Pt does snore with sleep apnea PVC Pt has some PVC on recent EKG Pt denies any chest pain or headache or sob. Her daughter is pushing her to get some cardiology work up done. Pt denies any palpitation cough1 Pt c/o productiv e coughing and sinus congestion for one week Pt denies any chest pain or heaache Pt has postnasal drainage. Pt has some chset congestion Pt went to [facility] and had negative chest xray. Pt was given steoid but did not help. Pt denies any fever anxiety1 Pt has chornic a nxiety and depression. Pt takes cymbalta and xanax and doing ok. Pt denies any suicidal or homicidal thought. Pt denies any crying spells insomnia1 Pt has insomnia. Pt takes trazodone and doing ok. Pt needs refill cough1 Pt c/o productiv e and tinklish [...] tuesday. Pt grabed her cat and a big [employer] truck came by and scared her cat [...] vomiting. Instructions Date Instruction Additional Infor mation Special diet education Related t o Body mass index (BMI) 40.0-44.9, adult Increase physical activity Relat ed to Insomnia [...] Counseling Increase physical activity Relat ed to Acute bronchitis Weight management Related to Acu te bronchitis Increase physical activity Relat ed to Ventricular [...] Mental Status Date Cognitive Assessment Orientation - [place] ed to time, place, person, situation.
--- OUTSIDE RECORDS SUMMARY | 2024-10-06 03:58 | XMS_ITS | Referral Summary ---
Author Organization [facility] Address [address] [place] [address] Phone Care Team Providers Care Senior Quality Analyst Name Role Phone Lyle Hoffmann MD Primary Care Provider [phone] Сергей Lowery MD Unavailable [phone] Encounters Date Type Department Care Team Description 09/18/2024 Telephone [facility] Ophthalmology [address], [address] [place] [address] Neela Mckeon COA 09/18/2024 3:45 PM CDT Office Visit [facility] Ophthalmology 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, [address] [place] [address] Mirta Aceves MD Pseudophakia of [...] on file Legal Sex Female 12:55 AM SR. MANAGER MARKETING Gender Identity Not on file Sexual Orientation Not on file Plan of Treatment Not on file Insurance [facility] MEDICARE ADVANTAGE Care Teams Senior Quality Analyst Relationship Specialty Start Date End Date Lyle Hoffmann MD [address] [place] [address] PCP - General Family Medicine 07/24/24 Сергей Lowery MD [address] [place] [address] [place] [address] Consulting Physician Ophthalmology 07/24/24
--- OUTSIDE RECORDS SUMMARY | 2024-10-06 03:58 | XMS_ITS | Clinical Summary ---
Author Organization [facility] Address [address] [place] [address] Phone Care Team Providers Care Last Picker Name Role Phone Lyle Hoffmann MD Primary Care Provider [phone] Сергей Lowery MD Unavailable [phone] Allergies Active Allergy Reactions Criticality Noted Date [...] Description 09/18/2024 3:45 PM CDT Office Visit [facility] Op[facility]mology [address] 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 [facility] [address] [facility], [address] [place] [address] Mirta Aceves MD Pseudophakia of [...] on file Legal Sex Female 12:55 AM PLATE SLITTER AND INSPECTOR Gender Identity Not on file Sexual Orientation [...] 2024, 04/22/2021 Influenza Vaccine (#1) 2024 Insurance [facility] MEDICARE ADVANTAGE [facility] MEDICARE Address: [facility] [address] [place] [address] Care Teams Last Picker Relationship Specialty Start Date End Date Lyle Hoffmann MD [address] [place] [address] PCP - General Family Medicine 07/24/24 Сергей Lowery MD [address] [place] [address] [place] [address] Consulting Physician Ophthalmology 07/24/24
--- NOTE | 2024-10-06 04:32 | ED_ITS ---
HPI - Extremity Problem General Chief complaint: Extremity Problem,Nontraumatic Stated complaint: i think i have a blood clot Time Seen by Provider: 10/06/24 03:25 Source: patient and family (Daughter) Mode of arrival: ambulatory Limitations: no limitations History of Present Illness HPI Narrative: Patient presents with a pain in her right leg. She notes that it had been experiencing intense cramp 2 times in the past 3 weeks. She notes that somewhat recently her leg buckled. No trauma but on Tuesday10/03/2024 she started having more pain, redness, and swelling. She is concerned that she has a blood clot in this extremity. Her boyfriend has had a history of a DVT. She has had multiple surgeries on her right knee including a complication of septic arthritis in June 2023. She states the symptoms have been progressively getting worse. She denies any shortness of breath. No history of DVT or PE. Not on anticoagulation. Related Data Home Medications ?Medication ?Instructions ?Recorded ?Confirmed ?Last Taken ?Type trazodone 150 mg tablet 150 mg PO PRN PRN Insomnia 09/02/19 05/28/24 Unknown History ascorbic acid (vitamin C) 500 mg 500 mg PO DAILY 02/22/22 05/28/24 05/06/24 History tablet multivitamin 1 tablet PO DAILY 02/22/22 05/28/24 05/06/24 History alprazolam 0.25 mg tablet 0.25 mg PO BID PRN Anxiety 05/01/24 05/28/24 Unknown History cholecalciferol (vitamin D3) 250 250 mcg PO DAILY 05/01/24 05/28/24 05/06/24 History mcg (10,000 unit) capsule duloxetine 60 mg capsule,delayed 60 mg PO DIRECTED 05/01/24 05/28/24 Unknown History release glucosamine 500 as-tohrntxild-gem8 1 tablet PO DAILY 05/01/24 05/28/24 05/06/24 History 416.6 mg-C 20 mg-pawel 0.6 mg tablet lactobacillus combination no.4 3 3,000 mmu cells PO DAILY 05/01/24 05/28/24 05/06/24 History billion cell capsule (Probiotic) magnesium L-threonate 48 mg 48 mg PO DAILY 05/01/24 05/28/24 05/06/24 History magnesium (667 mg) capsule vitamin B complex 1 tablet PO DAILY 05/01/24 05/28/24 05/06/24 History Allergies Allergy/AdvReac Type Severity Reaction Status Date / Time lisinopril Allergy Severe Swelling Verified 10/06/24 01:17 of Lip/Tongue/Throat PMFSH Past Medical History Medical History Septic arthritis in right knee had drains in legs ; Jun 2023 Patellar tendon strain Patellar tendon rupture CRP elevated Generalized osteoarthritis of multiple sites Inflammatory arthritis (~2018) Anxiety Dependence on other enabling machines and devices PAT (paroxysmal atrial tachycardia) Paroxysmal VT Essential hypertension KATARINA on CPAP Surgical History Surgical History History of hysteroscopy (05/10/24) Hysteroscopy with uterine curettings / Benign S/P total knee arthroplasty Family History Family History Father Hypertension Cerebrovascular accident Sibling Family history of coronary artery disease Family history of lymphoma Other Diabetes mellitus Family history of arthritis Family history of cardiovascular disease Family history of malignant neoplasm Social History Social History Social History: Has a boyfriend Smoking status: Never smoker Tobacco type: cigarettes Second hand tobacco smoke exposure: No Additional smoking assessment comments: DENIES ANY FORM OF TOBACCO USE Alcohol intake: current Drinks per week: 2 Alcohol use details: wine, 3 times a week Substance use: never Substance use type: does not use Do You Feel Safe in your Home?: Yes Lack of Transportation: No Lack of Food: Never True Current Housing: I Have Housing Concerned About Future Housing: No Difficulty Paying Gas/Electric Bills: No Difficulty Paying for Meds: No Currently Unemployed: No Education: Bachelor's Degree Difficulty w/ Childcare or Family Care: No Living arrangements: with family Additional living arrangements comments: S.O. Occupation/Education: retired Gender identity (if verbalized by the patient): Female Sexual Orientation (if Verbalized by the Patient): Straight or Heterosexual Spiritual care concerns: No Exam 2 Narrative: GENERAL: Well-appearing, well-nourished, and in no acute distress. HEAD: Normocephalic, atraumatic. EYES: Non injected, non icteric ENT: Nares clear, no rhinorrhea or epistaxis. NECK: Supple. CHEST: Speaking in full sentences. No respiratory distress. Nonlabored HEART: Regular rate and rhythm. . ABDOMEN: Soft, nondistended. EXTREMITIES: Normal range of motion. R leg with swelling/edema. Non distinctive Erythema particularly at posterior and medial/lateral calf. Tender to palpation. Warmth compared to the left. Otherwise warm and well perfused. Able to demonstrate right ankle dorsiflexion and plantar flexion and is able to demonstrate some flexion extension at the right knee SKIN: Warm, dry NEURO: No focal deficits. Alert and oriented x3. PSYCH: Normal mood and affect. Course Vital Signs Vital signs: Vital Signs Temperature 97.9 F 10/06/24 01:18 Pulse Rate 85 10/06/24 01:18 Respiratory Rate 16 10/06/24 01:18 Blood Pressure 148/63 H 10/06/24 01:18 Pulse Oximetry 98 10/06/24 01:18 Oxygen Delivery Room Air 10/06/24 01:18 Temperature 97.9 F 10/06/24 05:15 Pulse Rate 61 10/06/24 08:38 Respiratory Rate 18 10/06/24 08:38 Blood Pressure 139/53 L 10/06/24 08:38 Pulse Oximetry 97 10/06/24 08:38 Oxygen Delivery Room Air 10/06/24 01:18 MDM - Extremity (Nontraumatic) MDM Narrative Medical decision making narrative: Patient presents with right lower extremity pain swelling and erythema. She is concerned for a blood clot. In the emergency department she is afebrile with vital signs notable for hypertension. Dimer is greater than 1. I do recommend the patient proceed with ultrasound we discussed the options of either going home briefly (given it is 4:45am) and returning for either the 7 or 7:30 outpatient slot or staying and having it done in the ED. She opts for the latter. BNP mildly elevated but not at all to a degree to suggest acute heart failure especially based on the reference range of the assay for patient's age. She does have DVT. Patient is informed of this diagnosis. She received her 1st dose of Xarelto in the emergency department and prescribed the initiation pack of the same. She is provided a coupon and also advised that if this medication is cost prohibitive, to work with her primary care physician either alternative options or other prescription assistance programs. She is informed of the contraindication of NSAIDs while on this medication but that Tylenol is safe. She is educated on the fact that she is to tell anyone if she is involved in any trauma, falls, injury, accident that she is on anticoagulation given her high risk of bleeding and we discussed these risks even in the absence of trauma such as GI bleeding, hematuria, etc. she verifies understanding and is in agreement. We discussed that the duration of therapy would be determined and that she can work with her primary care physician regarding this. Advised returning for any new or worsening symptoms. Stable for discharge Differential Diagnosis Differential diagnosis: Likely cellulitis, superficial thrombophlebitis and deep vein thrombosis of lower extremity Lab Data Attestation: I reviewed the patient's lab results. Lab results narrative: No marked electrolyte abnormalities. No anemia or thrombocytopenia. 10/06/24 02:32 10/06/24 02:32 Labs: Lab Results 10/06/24 Range/Units 02:32 WBC 8.4 (4.5-10.0) K/mm3 RBC 4.78 (4.2-5.4) M/mm3 Hgb 12.1 (12.0-15.0) g/dL Hct 40.1 (37.0-47.0) % MCV 83.9 (80-100) fl MCH 25.3 L (26-34) pg MCHC 30.2 L (32-36) g/dl RDW 14.7 H (11.5-14.5) % Plt Count 274 (150-375) k/mm3 MPV 10.2 (7.4-10.4) fl Immature Gran % (Auto) 0.2 (0-0.5) % Neut % (Auto) 75.9 H (45.5-73.1) % Lymph % (Auto) 13.7 L (18.3-44.2) % [place] % (Auto) 7.2 (2.6-8.5) % Eos % (Auto) 2.4 (0-4.4) % Baso % (Auto) 0.6 (0.2-1.2) % Lymph # (Auto) 1.16 (0.9-3.2) K/mm3 [place] # (Auto) 0.6 (0.1-0.6) K/mm3 Eos # (Auto) 0.2 (0-0.3) K/mm3 Baso # (Auto) 0.1 (0.0-0.1) K/mm3 Abs Immat Gran (auto) 0.02 (0.00-0.031) K/mm3 Absolute Neuts (auto) 6.4 (1.3-6.7) K/mm3 Absolute Nucleated RBC 0.000 (0.0-0.012) K/mm3 Nucleated RBC % 0.0 (0.0-0.2) % PT 13.6 (11.1-14.7) Seconds INR 1.0 APTT 24.4 (22.3-36.8) Seconds D-Dimer 2.26 H (<0.48) ug/mL Sodium 139 (137-145) mmol/L Potassium 4.3 (3.4-5.0) mmol/L Chloride 103 (98-107) mmol/L Carbon Dioxide 29 (22-30) mmol/L Anion Gap 7 (4-12) mmol/L BUN 18 H (7-17) mg/dL Creatinine 0.78 (0.7-1.0) mg/dL Estim Creat Clear Calc 74 ml/min Estimated GFR > 60 (59 - ) Glucose 130 H (65-110) mg/dL Calcium 8.9 (8.4-10.2) mg/dL Magnesium 2.2 (1.6-2.3) mg/dL NT-Pro-B Natriuret Pep 156 H (19.9-100) pg/mL Imaging Data Radiologist's impression: IMPRESSION: 1. Gvhep-gsw-[id number] deep venous anastomosis (sic) in the right posterior tibial veins. Dr. Sharpe discussed these findings with Dr. Osorio at 7:55 AM. Discharge Plan Discharge Clinical Impression: Acute deep vein thrombosis (DVT) of right lower extremity Patient Disposition: Home, Self-Care Condition: Stable Instructions: Antibiotic Form, Rivaroxaban (By mouth), Deep Vein Thrombosis (DC) Additional Instructions: As we discussed, you have a blood clot in your leg known as a DVT. You received the first dose of blood thinner in the ED with the rest of the course prescribed. If there are issues with obtaining this medication due to cost or for other reasons, a coupon has been included and you can also work with your primary care physician. While you are on a blood thinner like this is important to avoid medications that are NSAIDs (such as ibuprofen, Motrin, Advil, Aleve, etc.). For pain or fever, acetaminophen/Tylenol is still safe to take an can be done at a dose of up to 4000 mg per day if necessary. While you are on a blood thinner like this it is important to tell someone if you have any trauma such as car accident or falls etc. as you are at increased risk of traumatic and nontraumatic bleeding. Return to the emergency department any new or worsening symptoms. Patient Language: Icelandic Prescriptions: New Xarelto DVT-PE Treat 30d Start 15 mg (42)- 20 mg (9) tablets,dose pack See Rx Instructions .ROUTE .COMPLEX Qty: 51 0RF Rx Instructions: take one-15 mg tablet twice daily for 21 days, then one-20 mg tablet once daily; must take with meal/food acetaminophen 500 mg capsule 1,000 mg PO Q6H PRN (Reason: pain) Qty: 30 0RF No Action trazodone 150 mg tablet 150 mg PO PRN PRN (Reason: Insomnia) amoxicillin-pot clavulanate 875-125 mg tablet 1 tablet PO Q12H 10 Days Qty: 20 0RF multivitamin Tablet 1 tablet PO DAILY ascorbic acid (vitamin C) 500 mg Tablet 500 mg PO DAILY alprazolam 0.25 mg tablet 0.25 mg PO BID PRN (Reason: Anxiety) vitamin B complex Tablet 1 tablet PO DAILY cholecalciferol (vitamin D3) 250 mcg (10,000 unit) Capsule 250 mcg PO DAILY zghweyjx-fpvax-ezm6-C-pawel-bor 500-416.6-20 mg Tablet 1 tablet PO DAILY Probiotic 3 billion cell Capsule 3,000 mmu cells PO DAILY Rx Instructions: administer with a meal magnesium L-threonate 48 mg magnesium (667 mg) Capsule 48 mg PO DAILY duloxetine 60 mg capsule,delayed release(DR/EC) 60 mg PO DIRECTED Patient Comments: MAY TAKE BID, CURRENTLY TAKES AT HS ONLY ibuprofen 400 mg tablet 400 mg PO Q6H Qty: 20 0RF tolterodine [Detrol LA] 4 mg capsule,extended release 24hr 4 mg PO DAILY Qty: 90 3RF Follow-up/Referrals: Lyle Hoffmann MD [Primary Care Provider] - Time of Disposition: 08:19
[2024-10-06] MEDS: ACETAMINOPHEN 500 MG TABLET 1000 MG PO (04:51)
[2024-10-06 04:55] LABS: Magnesium 2.2 mg/dL (1.6-2.3)
[2024-10-06 05:04] LABS: NT Pro B Type Natriuretic Pept 156 pg/mL (19.9-100)
[2024-10-06 05:15] VITALS: BP 155/94; PULSE 69; RESP 18; TEMP 36.6; O2SAT 99
[2024-10-06 08:38] VITALS: BP 139/53; PULSE 61; RESP 18; O2SAT 97
[2024-10-06] MEDS: RIVAROXABAN 15 MG TABLET PO (08:44)
== END 2024-10-06 08:52 | disposition home or self-care (01) ==
PROVIDERS: Emergency Provider Student in an Organized Health Care Education/Training Program; PCP Emergency Medicine
DX: I82.441 Acute embolism and thrombosis of right tibial vein (principal); I10 Essential (primary) hypertension; G47.33 Obstructive sleep apnea (adult) (pediatric); M19.90 Unspecified osteoarthritis, unspecified site; F41.9 Anxiety disorder, unspecified; Z96.659 Presence of unspecified artificial knee joint
CPT/HCPCS: 36415; 80048; 83735; 83880; 85025; 85380; 85610; 85730; 93971; 99284; A9270

== ENCOUNTER 2025-04-04 00:35 | Day surgery (SDC) | payer MEDICARE, SELFPAY ==
[2025-04-03 14:58] VITALS: BMI 39.6
--- OUTSIDE RECORDS SUMMARY | 2025-04-04 00:37 | XMS_ITS | Clinical Summary ---
Author Organization [facility] Address [address] [place] [address] Phone Care Team Providers Care Pattern Technician Name Role Phone Lyle Hoffmann MD Primary Care Provider + [phone] Сергей Lowery MD Unavailable [phone] Allergies Active Allergy Reactions Criticality Noted Date [...] (two) times a day as needed Active Xarelto 20 mg tablet Take by mouth daily with dinner Active DULoxetine DR (CYMBALTA) 60 mg capsule Take by mouth daily 5 Active amoxicillin 500 mg capsule TK FOUR CS PO 1 HOUR B DAPP 5 Active Xarelto 15 mg tablet TAKE 1 TABLET BY MOUTH TWICE A DAY X 21 DAYS WITH FOOD 5 Active Fosamax 70 mg tablet Take 1 tablet (70 mg total) by mouth once a week 5 Active acetaminophen (TYLENOL) 500 mg tablet TAKE 2 TABLET BY MOUTH EVERY 6 HOURS NEEDED FOR PAIN 5 Active doxycycline hyclate 100 mg capsule TAKE 1 CAPSULE BY MOUTH TWICE DAILY WITH FOOD FOR 10 DAYS 5 Active mupirocin (BACTROBAN) 2 % ointment 5 Active Klayesta powder APPLY TO THE AFFECTED AREA TOPICALLY TWICE A DAY 5 Active Active Problems Problem Noted Date Diagnosed Date Ulcerative blepharitis of up per and lower eyelids of both eyes 09/18/2024 Anterior dislocation of IOL (intraocular lens), left 09/18/2024 Pseudophakia of both eyes 07/24/2024 Encounters Date Type Department Care Team Description 03/25/2025 Telephone [facility] Ophthalmology [address] [facility] [address], [address] [place] [address] Mirta Aceves MD 02/19/2025 12:30 PM CDT Office Visit [facility] Orthopaedic Surgery [address] [facility] [address] [place] [address] Nirav Murillo MD Aftercare following right knee joint replacement surgery (Primary Dx) 01/02/2025 Results Follow-Up [facility] Orthopaedic Surgery [address] [facility] 2nd [address] [place] [address] Shira Nguyen, [place] MRI Knee Right WO Contrast from Last 3 Months Surgical History Surgery [...] on file 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 Gender Identity Not on file Sexual Orientation Not on file Obstetrics History Last Filed Vital Signs Vital Sign Reading Time Taken Comments Blood Pressure - - Pulse - - Temperature - - Respiratory Rate - - Oxygen Saturation - - Inhaled Oxygen Concentration - - Weight 117.5 kg (259 lb) 02/19/2025 12:30 PM CDT Height 165.7 cm (5' 5.25) 02/19/2025 12:30 PM C DT Body Mass Index 42.77 02/19/2025 12:30 PM CDT Plan of Treatment Health Maintenance Due Date [...] Visit 65+ 2017 Covid-19 Vaccine ( season) 2025, 04/22/2021 Influenza Vaccine (#1) 2025 Medical Devices Implanted Type Area Manuscript Editor Device Identifier Shelf Expiration Date Model / Serial / Lot Knee Replacement Right: Knee Insurance [facility] MEDICARE ADVANTAGE [facility] MEDICARE ADVANTAGE Care Teams Pattern Technician Relationship Specialty Start Date End Date Lyle Hoffmann MD [facility] [place] [address] PCP - General Family Medicine 07/24/24 Сергей Lowery MD [address] [place] [address] Consulting Physician Ophthalmology 07/24/24
--- OUTSIDE RECORDS SUMMARY | 2025-04-04 00:37 | XMS_ITS | Clinical Summary ---
Author Organization [facility] Address [address] [facility] [address] [place] [address] Phone Care Team Providers Care World Language Teacher Name Role Phone Unavailable Primary Care Provider Unavailabl e Medications EHP-ULu-DdBi-Na Sulf-Na Asc-C (MOVIPREP) 100 GM Recon Soln Use as directed on the bottle for colonoscopy prep. 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 Gender Identity Not on file Sexual Orientation Not on file Plan of Treatment Health Maintenance Due Date Last Done Comments Hepatitis C Virus (HCV) Screening 1950 TdaP Immunization 1950 Cologuard 1997 Colonoscopy 1997 Colorectal Cancer Screening 1997 Immunochemical Fecal Occult Blood 1997 Pneumococcal Immunization (5 0+ years) (1 of 1 - PCV) 2002 Zoster Immunization (1 of 2) 2002 Influenza Immunization (#1) 2025 SARS-COV-2 Immunization (1 - 2023- season) 2025 Respiratory Syncytial Virus (RSV) Immunization (Adult) (1 - 1-dose 75+ series) 2027 Hepatitis B Immunization Aged Out No longer eligible based on patient's age to complete this topic Human Papillomavirus (HPV) Immunization Aged Out No longer eligible b ased on patient's age to complete this topic Meningococcal Immunization (ACWY) Aged Out No longer eligible based on patient's age to complete this topic Rotavirus Immunization Aged Out No lo nger eligible based on patient's age to complete this topic Insurance
--- OUTSIDE RECORDS SUMMARY | 2025-04-04 00:37 | XMS_ITS | Clinical Summary ---
Author Organization [facility] Address [address] [place] [address] Care Team Providers Care Investment Banker Name Role Phone Unavailable Primary Care Provider [...] 1 - Tdap) 1971 Mammogram Screening 1992 Pneumococcal Vaccine: 50+ Ye ars (1 of 1 - PCV) 2002 Zoster Vaccines (1 of 2) 2002 Dexa Scan (General) 2017 COVID-19 Vaccine ( - 2023-2 5 season) 2025 RSV Immunization or 60+ Years (1 - [...]
[2025-04-04 13:10] VITALS: BP 158/79; PULSE 81; RESP 18; TEMP 37; O2SAT 98; BMI 40.2
[2025-04-04] MEDS: LACTATED RINGERS 1,000 ML 150 ML IV CONT (13:39)
--- NOTE | 2025-04-04 13:47 | WPDANESEPPF ---
Anes - Initial Pre Proc Eval Procedure: Operation Date: 04/04/25 14:30 Proposed Procedures p Esophagogastroduodenoscopy - Roddy Simmons MD Date/Time: 04/04/25 13:47 Surgeon: Roddy Simmons MD Pre Op Diagnosis: Hematemesis Patient Data Age: 74 Gender: F Height: 1.7 m Weight: 116.6 kg Last Vital Signs Temp 37.0 C 04/04/25 13:10 Pulse 81 04/04/25 13:10 Resp 18 04/04/25 13:10 BP 158/79 H 04/04/25 13:10 Pulse Ox 98 04/04/25 13:10 O2 Del Method Room Air 04/04/25 13:10 Allergies Allergy/AdvReac Type Severity Reaction Status Date / Time lisinopril Allergy Severe Swelling Verified 04/04/25 13:22 of Lip/Tongue/Throat Home Medications ?Medication ?Instructions ?Recorded ?Confirmed ?Type trazodone 150 mg tablet 150 mg PO PRN PRN Insomnia 09/02/19 04/04/25 History ascorbic acid (vitamin C) 500 mg 500 mg PO DAILY 02/22/22 04/04/25 History tablet multivitamin 1 tablet PO DAILY 02/22/22 04/04/25 History tolterodine 4 mg capsule,extended 4 mg PO DAILY #90 caps 04/25/24 04/03/25 Rx release 24 hr (Detrol LA) alprazolam 0.25 mg tablet 0.25 mg PO BID PRN Anxiety 05/01/24 04/03/25 History cholecalciferol (vitamin D3) 250 250 mcg PO DAILY 05/01/24 04/04/25 History mcg (10,000 unit) capsule duloxetine 60 mg capsule,delayed 60 mg PO HS 05/01/24 04/04/25 History release glucosamine 500 in-[id number]-[id number] 1 tablet PO DAILY 05/01/24 04/04/25 History 416.6 mg-C 20 mg-pawel 0.6 mg tablet lactobacillus combination no.4 3 3,000 mmu cells PO DAILY 05/01/24 04/04/25 History billion cell capsule (Probiotic) magnesium L-threonate 48 mg 48 mg PO DAILY 05/01/24 04/04/25 History magnesium (667 mg) capsule vitamin B complex 1 tablet PO DAILY 05/01/24 04/04/25 History acetaminophen 500 mg capsule 1,000 mg (2 x 500 mg) PO Q6H PRN 10/06/24 04/03/25 Rx pain #30 caps rivaroxaban 15 mg (42)-20 mg (9) See Rx Instructions PO .COMPLEX 10/06/24 04/03/25 Rx tablets in a starter pack (Xarelto #51 ea DVT-PE Treatment 30-Day Starter) nystatin 100,000 unit/gram topical 1 applic topical BID PRN rash 04/03/25 04/03/25 History powder pantoprazole 40 mg tablet,delayed 40 mg PO DAILY 04/03/25 04/04/25 History release Patient hx anesthesia problems: none Family hx anesthesia problems: none Results Review: All pre-operative results and documents have been reviewed as part of the pre-operative evaluation. [facility] Past Medical History Medical History (Updated 11/21/24 @ 09:15 by ANTON Allen) H/O blood clots Screening mammogram, encounter for Encounter for special screening examination for neoplasm of cervix Septic arthritis in right knee had drains in legs ; Jun 2023 Patellar tendon strain Patellar tendon rupture CRP elevated Generalized osteoarthritis of multiple sites Inflammatory arthritis (~2018) Anxiety Dependence on other enabling machines and devices PAT (paroxysmal atrial tachycardia) Paroxysmal VT Essential hypertension KATARINA on CPAP Surgical History Surgical History History of hysteroscopy (05/10/24) Hysteroscopy with uterine curettings / Benign S/P total knee arthroplasty Family History Family History Father Hypertension Cerebrovascular accident Sibling Family history of coronary artery disease Family history of lymphoma Other Diabetes mellitus Family history of arthritis Family history of cardiovascular disease Family history of malignant neoplasm Social History Social History (Updated 11/21/24 @ 09:16 by ANTON Allen) Social History: Has a boyfriend Smoking status: Never smoker Second hand tobacco smoke exposure: No Additional smoking assessment comments: DENIES ANY FORM OF TOBACCO USE Alcohol intake: current Alcohol use details: wine, 3 times a month Substance use: never Substance use type: does not use Do You Feel Safe in your Home?: Yes Lack of Transportation: No Lack of Food: Never True Current Housing: I Have Housing Concerned About Future Housing: No Difficulty Paying Gas/Electric Bills: No Difficulty Paying for Meds: No Currently Unemployed: No Education: Bachelor's Degree Difficulty w/ Childcare or Family Care: No Living arrangements: with family Additional living arrangements comments: S.O. Occupation/Education: retired Gender identity (if verbalized by the patient): Female Sexual Orientation (if Verbalized by the Patient): Straight or Heterosexual Spiritual care concerns: No Anes - Eval Final PreProcedure Day of Procedure 04/04/25 13:47 Patient weight: morbidly obese Heart: regular rate and rhythm Lungs: clear to auscultation Airway: Mallampati scale class II Neurological: alert and oriented Last oral intake: >/= 8 hours ASA classification: III Emergent: no Anesthetic plan: proceed Anesthesia type and monitoring: general GIVS and standard monitoring Results Review: All pre-operative results and documents have been reviewed as part of the pre-operative evaluation. Informed Consent: The patient's anesthetic plan and its attendant risks and benefits were discussed with the patient/family/POA. Questions were solicited and answers provided to the satisfaction of the patient/family/POA.
--- NOTE | 2025-04-04 13:50 | PM.HPGS ---
History of Present Illness History of Present Illness Consent: Risks, benefits, and alternatives have been discussed and questions answered. Patient agrees to proceed with procedure. Chief complaint: Hematemesis Narrative: Radha Mendenhall is a 74 year old female here for egd, intermittent epigastric pain, the other day she woke up and noted small pool of blood with saliva in her pillow Review of Systems Review of Systems: All systems reviewed & are unremarkable except as noted in HPI and below PMFSH Past Medical History Medical History (Updated 04/04/25 @ 13:51 by Roddy Simmons MD) Epigastric pain H/O blood clots Screening mammogram, encounter for Encounter for special screening examination for neoplasm of cervix Septic arthritis in right knee had drains in legs ; Jun 2023 Patellar tendon strain Patellar tendon rupture CRP elevated Generalized osteoarthritis of multiple sites Inflammatory arthritis (~2018) Anxiety Dependence on other enabling machines and devices PAT (paroxysmal atrial tachycardia) Paroxysmal VT Essential hypertension KATARINA on CPAP Surgical History Surgical History History of hysteroscopy (05/10/24) Hysteroscopy with uterine curettings / Benign S/P total knee arthroplasty Family History Family History Father Hypertension Cerebrovascular accident Sibling Family history of coronary artery disease Family history of lymphoma Other Diabetes mellitus Family history of arthritis Family history of cardiovascular disease Family history of malignant neoplasm Social History Social History (Updated 11/21/24 @ 09:16 by ANTON Allen) Social History: Has a boyfriend Smoking status: Never smoker Second hand tobacco smoke exposure: No Additional smoking assessment comments: DENIES ANY FORM OF TOBACCO USE Alcohol intake: current Alcohol use details: wine, 3 times a month Substance use: never Substance use type: does not use Do You Feel Safe in your Home?: Yes Lack of Transportation: No Lack of Food: Never True Current Housing: I Have Housing Concerned About Future Housing: No Difficulty Paying Gas/Electric Bills: No Difficulty Paying for Meds: No Currently Unemployed: No Education: Bachelor's Degree Difficulty w/ Childcare or Family Care: No Living arrangements: with family Additional living arrangements comments: S.O. Occupation/Education: retired Gender identity (if verbalized by the patient): Female Sexual Orientation (if Verbalized by the Patient): Straight or Heterosexual Spiritual care concerns: No Meds Home Medications and Allergies Home Medications ?Medication ?Instructions ?Recorded ?Confirmed ?Type trazodone 150 mg tablet 150 mg PO PRN PRN Insomnia 09/02/19 04/04/25 History ascorbic acid (vitamin C) 500 mg 500 mg PO DAILY 02/22/22 04/04/25 History tablet multivitamin 1 tablet PO DAILY 02/22/22 04/04/25 History tolterodine 4 mg capsule,extended 4 mg PO DAILY #90 caps 04/25/24 04/03/25 Rx release 24 hr (Detrol LA) alprazolam 0.25 mg tablet 0.25 mg PO BID PRN Anxiety 05/01/24 04/03/25 History cholecalciferol (vitamin D3) 250 250 mcg PO DAILY 05/01/24 04/04/25 History mcg (10,000 unit) capsule duloxetine 60 mg capsule,delayed 60 mg PO HS 05/01/24 04/04/25 History release glucosamine 500 bb-axabrkjnra-aro7 1 tablet PO DAILY 05/01/24 04/04/25 History 416.6 mg-C 20 mg-pawel 0.6 mg tablet lactobacillus combination no.4 3 3,000 mmu cells PO DAILY 05/01/24 04/04/25 History billion cell capsule (Probiotic) magnesium L-threonate 48 mg 48 mg PO DAILY 05/01/24 04/04/25 History magnesium (667 mg) capsule vitamin B complex 1 tablet PO DAILY 05/01/24 04/04/25 History acetaminophen 500 mg capsule 1,000 mg (2 x 500 mg) PO Q6H PRN 10/06/24 04/03/25 Rx pain #30 caps rivaroxaban 15 mg (42)-20 mg (9) See Rx Instructions PO .COMPLEX 10/06/24 04/03/25 Rx tablets in a starter pack (Xarelto #51 ea DVT-PE Treatment 30-Day Starter) nystatin 100,000 unit/gram topical 1 applic topical BID PRN rash 04/03/25 04/03/25 History powder pantoprazole 40 mg tablet,delayed 40 mg PO DAILY 04/03/25 04/04/25 History release Allergies Allergy/AdvReac Type Severity Reaction Status Date / Time lisinopril Allergy Severe Swelling Verified 04/04/25 13:22 of Lip/Tongue/Throat Vital Signs Vital Signs - 24 hr 04/04/25 13:10 Temperature 98.6 F Pulse Rate 81 Respiratory Rate 18 Blood Pressure 158/79 H Pulse Oximetry 98 Oxygen Delivery Room Air Exam Const: General: comfortable and no acute distress HENMT: Face/Nose/Sinus: Normal nares present Eyes: General: appearance normal, both eyes and all related structures Resp: Auscultation: clear to auscultation bilaterally Cardio: Rate: regular rate Rhythm: regular rhythm GI: Inspection: non-distended GI Palp: Yes Soft to palpation Extrem: General: normal to inspection Psych: Mental Status: mental status grossly normal Assessment and Plan Assessment and plan (1) Epigastric pain: Code(s): R10.13 - Epigastric pain Status: Acute Assessment and Plan: egd with bx
--- NOTE | 2025-04-04 13:56 | S_PTH ---
PATIENT: Radha Mendenhall LOC: [facility] Marks#:[id number] AGE/SX: 74/F ROOM: RE04/04/[address]: Roddy Simmons MD : 1950 BED: DIS: 04/04/2025 SPEC #: [id number] RECD: 04/04/25 14:18 STATUS: BUDDY REQ #: [id number] FELECIA: 04/04/25 13:[address]: Roddy Simmons DEPT: [facility] Surgical RECD BY: Makenzie Onofre MLT, ([facility]) ENTERED: 04/04/25 14:18 SP TYPE: Surgical OTHR DR: Lyle Hoffmann MD Tissues: A - Gastric Biopsy Procedures: Hematoxylin and Eosin Stain Gross and Microscopic Level 4 H.Pylori
[2025-04-04 13:58] VITALS: BP 132/64; PULSE 74; RESP 20; O2SAT 100
[2025-04-04 14:08] VITALS: BP 150/76; PULSE 73; RESP 24; O2SAT 100
[2025-04-04 14:18] VITALS: BP 159/84; PULSE 73; RESP 26; O2SAT 100
== END 2025-04-04 14:35 | disposition home or self-care (01) ==
PROVIDERS: PCP Emergency Medicine; Visit Provider Internal Medicine Gastroenterology
PROC: 0DJ08ZZ Inspection of Upper Intestinal Tract, Via Natural or Artificial Opening Endoscopic (ICD-10-PCS; CPT 43239; principal; 2025-04-04 14:30)
DX: K29.50 Unspecified chronic gastritis without bleeding (principal); K44.9 Diaphragmatic hernia without obstruction or gangrene; E66.01 Morbid (severe) obesity due to excess calories; Z68.41 Body mass index [BMI] 40.0-44.9, adult
CPT/HCPCS: 43239; 88305; 88342; J2704; J7120

== ENCOUNTER 2025-04-19 20:17 | Emergency (ER) | payer MEDICARE, SELFPAY ==
--- OUTSIDE RECORDS SUMMARY | 2025-04-19 20:20 | XMS_ITS | Clinical Summary ---
Author Organization [facility] Address [address] [facility] [address] [place] [address] Phone Care Team Providers Care Line Producer Name Role Phone Unavailable Primary Care Provider Unavailabl e Medications VHM-FLq-NgLu-Na Sulf-Na Asc-C (MOVIPREP) 100 GM Recon Soln Use as directed on the bottle for colonoscopy prep. 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
--- OUTSIDE RECORDS SUMMARY | 2025-04-19 20:20 | XMS_ITS | Clinical Summary ---
Author Organization [facility] Address [address] [place] [address] Phone Care Team Providers Care Dock Supervisor Name Role Phone Lyle Hoffmann MD Primary Care Provider + [phone] Сергей Lowery MD Unavailable [phone] Allergies Active Allergy Reactions Criticality Noted [...] Type Department Care Team Description 03/25/2025 Telephone [facility] Ophthalmology [address] [facility] [address] [place] [address] Mirta Aceves MD 02/19/2025 12:30 PM CDT Office Visit [facility] Orthopaedic Surgery [address] [facility] [address] [place] [address] Nirav Murillo MD Aftercare following right knee joint replacement surgery (Primary Dx) from Last 3 Months Surgical [...] on file 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 Gender Identity Not on file Sexual Orientation [...] 65+ 2017 Covid-19 Vaccine (3 - season) 2025, 04/22/2021 Influenza Vaccine (#1) 2025 Medical Devices Implanted Type Area Supervising Appraiser Device Identifier Shelf Expiration Date Model / Serial / Lot Knee Replacement Right: Knee Insurance [facility] MEDICARE ADVANTAGE [facility] Address: [address] [address] [place] [address] [facility] MEDICARE ADVANTAGE [facility] Address: [address] [address] [place] [address] Care Teams Dock Supervisor Relationship Specialty Start Date End Date Lyle Hoffmann MD [address] [place] [address] PCP - General Family Medicine 07/24/24 Сергей Lowery MD [address] [place] [address] [address] [place] [address] Consulting Physician Ophthalmology 07/24/24
--- OUTSIDE RECORDS SUMMARY | 2025-04-19 20:20 | XMS_ITS | Clinical Summary ---
Author Organization [facility] Address [address] [place] [address] Care Team Providers Care Speeder Hand Name Role Phone Unavailable Primary Care Provider [...] Vaccine ( - 2023-2 5 season) 2025 Influenza Adult (#1) 2025 RSV Immunization or 60+ Years (1 [...]
[2025-04-19 20:24] VITALS: BP 173/73; PULSE 87; RESP 18; TEMP 36.8; O2SAT 97
--- OUTSIDE RECORDS SUMMARY | 2025-04-20 02:47 | XMS_ITS | Clinical Summary ---
Author Organization [facility] Address [address] [facility] [address] [place] [address] Phone Care Team Providers Care Rn Complex Care Name Role Phone Unavailable Primary Care Provider Unavailabl e Medications LUL-CUa-LnQp-Na Sulf-Na Asc-C (MOVIPREP) 100 GM Recon Soln Use as directed on the bottle for colonoscopy prep. 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
[2025-04-20 02:48] LABS: Hematocrit 40.4 % (37.0-47.0); Hemoglobin 12.2 g/dL (12.0-15.0); Immature Granulocyte Percent A 0.4 % (0-0.5); Lymphocytes Absolute Auto 1.63 K/mm3 (0.9-3.2); Mean Corpuscular HGB Conc 30.2 g/dl (32-36); Mean Corpuscular Hemoglobin 25.4 pg (26-34); Mean Corpuscular Volume 84.0 fl (80-100); Nucleated Red Blood Cells Absolute Auto 0.000 K/mm3 (0.0-0.012); Nucleated Red Blood Cells Perc 0.0 % (0.0-0.2); Platelet Count Result 258 k/mm3 (150-375); Red Blood Count 4.81 M/mm3 (4.2-5.4); White Blood Count 8.6 K/mm3 (4.5-10.0)
[2025-04-20 02:59] LABS: Anion Gap 9 mmol/L (4-12); Blood Urea Nitrogen 19 mg/dL (7-17); Calcium 9.0 mg/dL (8.4-10.2); Carbon Dioxide 30 mmol/L (22-30); Chloride 100 mmol/L (98-107); Estimated CRCL calculation 71 ml/min; Estimated Glomerular Filt Rate > 60; Glucose 104 mg/dL (65-110); Potassium 4.4 mmol/L (3.4-5.0); Sodium 139 mmol/L (137-145)
[2025-04-20 03:09] LABS: INR 1.1; Prothrombin Time 14.2 Seconds (11.1-14.7)
[2025-04-20 03:11] LABS: Partial Thromboplastin Time 27.3 Seconds (22.3-36.8)
--- NOTE | 2025-04-20 04:42 | ED.EXTPRO ---
HPI - Extremity Problem General Chief complaint: Extremity Problem,Nontraumatic Stated complaint: i have a blood clot Time Seen by Provider: 04/20/25 01:21 History of Present Illness HPI Narrative: 74-year-old female with a history of paroxysmal atrial tachycardia, hypertension, DVT previously on Xarelto. Her primary doctor took her off Xarelto 2 weeks ago. Yesterday she noted a warm area and swelling in her left lower extremity near the distal calf that she feels is a blood clot. Similar exact appearance the last time she had a DVT in her right lower extremity on a different leg. Denies any new provoking factors. Besides the Xarelto no changes to her medications. No chest pain shortness a breath. No fever chills. No traumatic injuries. Was otherwise in her normal state of health. Related Data Home Medications ?Medication ?Instructions ?Recorded ?Confirmed ?Last Taken ?Type trazodone 150 mg tablet 150 mg PO PRN PRN Insomnia 09/02/19 04/04/25 04/03/25 History ascorbic acid (vitamin C) 500 mg 500 mg PO DAILY 02/22/22 04/04/25 04/03/25 History tablet multivitamin 1 tablet PO DAILY 02/22/22 04/04/25 04/03/25 History alprazolam 0.25 mg tablet 0.25 mg PO BID PRN Anxiety 05/01/24 04/03/25 Unknown History cholecalciferol (vitamin D3) 250 250 mcg PO DAILY 05/01/24 04/04/25 04/03/25 History mcg (10,000 unit) capsule duloxetine 60 mg capsule,delayed 60 mg PO HS 05/01/24 04/04/25 04/03/25 History release glucosamine 500 al-frpiaqzzdc-jre9 1 tablet PO DAILY 05/01/24 04/04/25 04/03/25 History 416.6 mg-C 20 mg-pawel 0.6 mg tablet lactobacillus combination no.4 3 3,000 mmu cells PO DAILY 05/01/24 04/04/25 04/03/25 History billion cell capsule (Probiotic) magnesium L-threonate 48 mg 48 mg PO DAILY 05/01/24 04/04/25 04/03/25 History magnesium (667 mg) capsule vitamin B complex 1 tablet PO DAILY 05/01/24 04/04/25 04/03/25 History nystatin 100,000 unit/gram topical 1 applic topical BID PRN rash 04/03/25 04/03/25 Unknown History powder pantoprazole 40 mg tablet,delayed 40 mg PO DAILY 04/03/25 04/04/25 04/03/25 History release Allergies Allergy/AdvReac Type Severity Reaction Status Date / Time lisinopril Allergy Severe Swelling Verified 04/04/25 13:22 of Lip/Tongue/Throat Review of Systems Review of Systems: As reviewed above in HPI [facility] Past Medical History Medical History Epigastric pain H/O blood clots Screening mammogram, encounter for Encounter for special screening examination for neoplasm of cervix Septic arthritis in right knee had drains in legs ; Jun 2023 Patellar tendon strain Patellar tendon rupture CRP elevated Generalized osteoarthritis of multiple sites Inflammatory arthritis (~2018) Anxiety Dependence on other enabling machines and devices PAT (paroxysmal atrial tachycardia) Paroxysmal VT Essential hypertension KATARINA on CPAP Surgical History Surgical History History of hysteroscopy (05/10/24) Hysteroscopy with uterine curettings / Benign S/P total knee arthroplasty Family History Family History Father Hypertension Cerebrovascular accident Sibling Family history of coronary artery disease Family history of lymphoma Other Diabetes mellitus Family history of arthritis Family history of cardiovascular disease Family history of malignant neoplasm Social History Social History Social History: Has a boyfriend Smoking status: Never smoker Second hand tobacco smoke exposure: No Additional smoking assessment comments: DENIES ANY FORM OF TOBACCO USE Alcohol intake: current Alcohol use details: wine, 3 times a month Substance use: never Substance use type: does not use Do You Feel Safe in your Home?: Yes Lack of Transportation: No Lack of Food: Never True Current Housing: I Have Housing Concerned About Future Housing: No Difficulty Paying Gas/Electric Bills: No Difficulty Paying for Meds: No Currently Unemployed: No Education: Bachelor's Degree Difficulty w/ Childcare or Family Care: No Living arrangements: with family Additional living arrangements comments: S.O. Occupation/Education: retired Gender identity (if verbalized by the patient): Female Sexual Orientation (if Verbalized by the Patient): Straight or Heterosexual Spiritual care concerns: No Exam Narrative: GENERAL: [Well-appearing, well-nourished, and in no acute distress.] HEAD: [Normocephalic, atraumatic.] EYES: [PERRLA and EOMI.] ENT: Nares clear, no rhinorrhea or epistaxis. Mucous membranes moist. NECK: Supple. CHEST: [Clear to auscultation. No respiratory distress.] HEART: [Regular rate and rhythm]. No murmur heard. [Normal peripheral pulses.] ABDOMEN: [Soft, nondistended], [nontender], [No rigidity or guarding] EXTREMITIES: Normal range of motion. 1+ pitting edema to left ankle, swelling and tenderness along the distal left calf/proximal ankle region. Full range of motion of the ankle. 2+ dorsalis pedis pulses. Warm extremity with full range of motion and ambulation. Contralateral leg has postsurgical scar over the right knee but no symmetric swelling. SKIN: Warm, dry, no rash. NEURO: [No focal deficits]. Alert and oriented [x3.] PSYCH: [Normal mood and affect.] Course Vital Signs Vital signs: Vital Signs Temperature 36.8 C 04/19/25 20:24 Pulse Rate 87 04/19/25 20:24 Respiratory Rate 18 04/19/25 20:24 Blood Pressure 173/73 H 04/19/25 20:24 Pulse Oximetry 97 04/19/25 20:24 Temperature 36.8 C 04/19/25 20:24 Pulse Rate 87 04/19/25 20:24 Respiratory Rate 18 04/19/25 20:24 Blood Pressure 173/73 H 04/19/25 20:24 Pulse Oximetry 97 04/19/25 20:24 MDM - Extremity (Nontraumatic) MDM Narrative Medical decision making narrative: 74-year-old female with a history of paroxysmal atrial tachycardia, hypertension, DVT previously on Xarelto. Her primary doctor took her off Xarelto 2 weeks ago. Yesterday she noted a warm area and swelling in her left lower extremity near the distal calf that she feels is a blood clot. Similar exact appearance the last time she had a DVT in her right lower extremity on a different leg. Denies any new provoking factors. Besides the Xarelto no changes to her medications. No chest pain shortness a breath. No fever chills. No traumatic injuries. Was otherwise in her normal state of health. Patient's exam shows normal range of motion. 1+ pitting edema to left ankle, swelling and tenderness along the distal left calf/proximal ankle region. Full range of motion of the ankle. 2+ dorsalis pedis pulses. Warm extremity with full range of motion and ambulation. Contralateral leg has postsurgical scar over the right knee but no symmetric swelling. Hemodynamically stable without any tachycardia, fever, hypoxemia or significant blood pressure concerns. Basic laboratory studies obtained. D-dimer ordered as we do not have ultrasonography capabilities at this hour. Patient's timers positive. Laboratory studies are largely unremarkable in stable from baseline. We called Radiology to schedule the patient for 7:00 a.m. outpatient ultrasound and disposition based on results. Prescription for outpatient ultrasound ordered. Patient informed of wear and went to arrive for ultrasound and safely discharged home at this time. She has Xarelto leftover at home and will be able to restart this or talk to her primary doctor depending on the results this morning. Lab Data 04/20/25 02:40 04/20/25 02:40 Labs: Lab Results 04/20/25 Range/Units 02:40 WBC 8.6 (4.5-10.0) K/mm3 RBC 4.81 (4.2-5.4) M/mm3 Hgb 12.2 (12.0-15.0) g/dL Hct 40.4 (37.0-47.0) % MCV 84.0 (80-100) fl MCH 25.4 L (26-34) pg MCHC 30.2 L (32-36) g/dl RDW 15.2 H (11.5-14.5) % Plt Count 258 (150-375) k/mm3 MPV 9.5 (7.4-10.4) fl Immature Gran % (Auto) 0.4 (0-0.5) % Neut % (Auto) 69.8 (45.5-73.1) % Lymph % (Auto) 19.0 (18.3-44.2) % Traill % (Auto) 7.6 (2.6-8.5) % Eos % (Auto) 2.6 (0-4.4) % Baso % (Auto) 0.6 (0.2-1.2) % Lymph # (Auto) 1.63 (0.9-3.2) K/mm3 Traill # (Auto) 0.7 H (0.1-0.6) K/mm3 Eos # (Auto) 0.2 (0-0.3) K/mm3 Baso # (Auto) 0.1 (0.0-0.1) K/mm3 Abs Immat Gran (auto) 0.03 (0.00-0.031) K/mm3 Absolute Neuts (auto) 6.0 (1.3-6.7) K/mm3 Absolute Nucleated RBC 0.000 (0.0-0.012) K/mm3 Nucleated RBC % 0.0 (0.0-0.2) % PT 14.2 (11.1-14.7) Seconds INR 1.1 APTT 27.3 (22.3-36.8) Seconds D-Dimer 1.46 H (<0.48) ug/mL Sodium 139 (137-145) mmol/L Potassium 4.4 (3.4-5.0) mmol/L Chloride 100 (98-107) mmol/L Carbon Dioxide 30 (22-30) mmol/L Anion Gap 9 (4-12) mmol/L BUN 19 H (7-17) mg/dL Creatinine 0.84 (0.7-1.0) mg/dL Estim Creat Clear Calc 71 ml/min Estimated GFR > 60 (59 - ) Glucose 104 (65-110) mg/dL Calcium 9.0 (8.4-10.2) mg/dL Discharge Plan Discharge Clinical Impression: History of deep vein thrombosis, Left leg swelling Patient Disposition: Home Condition: Stable Instructions: Antibiotic Form Additional Instructions: Follow-up at 7:00 a.m. for your schedule DVT ultrasound. Return with any emergent concerns in the interim. Patient Language: Upper Sorbian Prescriptions: No Action trazodone 150 mg tablet 150 mg PO PRN PRN (Reason: Insomnia) multivitamin Tablet 1 tablet PO DAILY ascorbic acid (vitamin C) 500 mg Tablet 500 mg PO DAILY pantoprazole 40 mg tablet,delayed release (DR/EC) 40 mg PO DAILY nystatin 100,000 unit/gram powder 1 applic topical BID PRN (Reason: rash) alprazolam 0.25 mg tablet 0.25 mg PO BID PRN (Reason: Anxiety) vitamin B complex Tablet 1 tablet PO DAILY cholecalciferol (vitamin D3) 250 mcg (10,000 unit) Capsule 250 mcg PO DAILY nbadbulm-jwaeb-zzv1-C-pawel-bor 500-416.6-20 mg Tablet 1 tablet PO DAILY Probiotic 3 billion cell Capsule 3,000 mmu cells PO DAILY Rx Instructions: administer with a meal magnesium L-threonate 48 mg magnesium (667 mg) Capsule 48 mg PO DAILY duloxetine 60 mg capsule,delayed release(DR/EC) 60 mg PO HS Patient Comments: MAY TAKE BID, CURRENTLY TAKES AT HS ONLY Xarelto DVT-PE Treat 30d Start 15 mg (42)- 20 mg (9) tablets,dose pack See Rx Instructions .ROUTE .COMPLEX Qty: 51 0RF Rx Instructions: take one-15 mg tablet twice daily for 21 days, then one-20 mg tablet once daily; must take with meal/food acetaminophen 500 mg capsule 1,000 mg PO Q6H PRN (Reason: pain) Qty: 30 0RF tolterodine [Detrol LA] 4 mg capsule,extended release 24hr 4 mg PO DAILY Qty: 90 3RF Other Ambulatory Orders: US venous doppler LE (ONCE) Timeframe: 20250421 Location: Determined by Patient Ordered By: Ricardo Joseph Follow-up/Referrals: Lyle Hoffmann MD [Primary Care Provider, Family Practice] Time of Disposition: 04:00
== END 2025-04-20 05:10 | disposition home or self-care (01) ==
PROVIDERS: Emergency Provider Student in an Organized Health Care Education/Training Program; PCP Emergency Medicine
DX: R22.42 Localized swelling, mass and lump, left lower limb (principal); Z86.718 Personal history of other venous thrombosis and embolism; R79.1 Abnormal coagulation profile; I10 Essential (primary) hypertension; I47.19 Other supraventricular tachycardia; G47.33 Obstructive sleep apnea (adult) (pediatric); M19.90 Unspecified osteoarthritis, unspecified site; F41.9 Anxiety disorder, unspecified; Z96.659 Presence of unspecified artificial knee joint; Z79.899 Other long term (current) drug therapy
CPT/HCPCS: 36415; 80048; 85025; 85380; 85610; 85730; 99283

== ENCOUNTER 2025-04-20 07:08 | Outpatient (CLI) | payer MEDICARE, SELFPAY ==
--- NOTE | ~2025-04-20 | US_ITS ---
EXAMINATION: US venous doppler LE , 04/20/2025 8:25 CDT HISTORY: Z86.718 - Personal history of other venous thrombosis and... Comparison: None Technique: Ortiz-scale and color Doppler images were attempted of the lower saphenofemoral junction, common femoral vein,superficial femoral vein, proximal deep femoral vein, proximal deep femoral vein, popliteal vein and posterior tibial veins. Findings: Deep Venous System:Normal flow, augmentation and compressibility. No echogenic thrombus identified. The contralateral saphenofemoral junction appears unremarkable. Superficial Venous SystemNo superficial thrombophlebitis. Soft tissues: Soft tissues are unremarkable. Impression: Negative for DVT. Reviewed, dictated and finalized at location P. Impression: Negative for DVT.
--- OUTSIDE RECORDS SUMMARY | 2025-04-20 07:11 | XMS_ITS | Clinical Summary ---
Author Organization [facility] Address [address] [place] [id number] Care Team Providers Care Shoe Repairman Name Role Phone Unavailable Primary Care Provider [...] Years (1 - 1-dose 75+ series) 2027 Hepatitis A Vaccines Aged Out No long er eligible based on patient's age to complete this topic Meningococcal B Vaccine Aged Out No l onger eligible based on patient's age to complete this topic Meningococcal Vaccine Aged Out No hilaroi maria fernanda eligible based on patient's age to complete this topic RSV Immunizations Under 20 Months Aged Out No longer eligible based on patient's age to complete this topic
--- OUTSIDE RECORDS SUMMARY | 2025-04-20 07:11 | XMS_ITS | Clinical Summary ---
Author Organization [facility] Address [address] [facility] [address] [place] [address] Phone Care Team Providers Care Electronics Engineering Manager Name Role Phone Unavailable Primary Care Provider Unavailabl e Medications ULJ-OXb-YuYm-Na Sulf-Na Asc-C (MOVIPREP) 100 GM Recon Soln Use as directed on the bottle for colonoscopy prep. 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
--- OUTSIDE RECORDS SUMMARY | 2025-04-20 07:11 | XMS_ITS | Clinical Summary ---
Author Organization [facility] Address [address] [place] [address] Phone Care Team Providers Care Functional Tester Typewriters Name Role Phone Lyle Hoffmann MD Primary Care Provider + [phone] Сергей Lowery MD Unavailable [phone] Allergies Active Allergy Reactions Criticality Noted [...] Type Department Care Team Description 03/25/2025 Telephone [facility] Ophthalmology [address] [place] [address] Mirta Aceves MD 02/19/2025 12:30 PM CDT Office Visit [facility] Orthopaedic Surgery [address] [place] [address] Nirav Murillo MD Aftercare following [...] on file 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 Gender Identity Not on file Sexual Orientation [...] (#1) 2025 Medical Devices Implanted Type Area Java Web User Interface Developer Device Identifier Shelf Expiration Date Model / Serial / Lot Knee Replacement Right: Knee Insurance [facility] MEDICARE ADVANTAGE [facility] MEDICARE ADVANTAGE Care Teams Functional Tester Typewriters Relationship Specialty Start Date End Date Lyle Hoffmann MD [address] [place] [address] PCP - General Family Medicine 07/24/24 Сергей Lowery MD [address] [place] [address] [address] [place] [address] Consulting Physician Ophthalmology 07/24/24
== END 2025-04-20 07:09 | disposition home or self-care (01) ==
PROVIDERS: PCP Emergency Medicine; Visit Provider Student in an Organized Health Care Education/Training Program
DX: Z86.718 Personal history of other venous thrombosis and embolism (principal)
CPT/HCPCS: 93971

== ENCOUNTER 2025-05-06 01:15 | Day surgery (SDC) | payer MEDICARE, SELFPAY ==
[2025-05-02 14:28] VITALS: BMI 42.9
--- OUTSIDE RECORDS SUMMARY | 2025-05-06 01:18 | XMS_ITS | Clinical Summary ---
Author Organization [facility] Address [address] [place] [address] Phone Care Team Providers Care Business Development Name Role Phone Lyle Hoffmann MD Primary Care Provider + [phone] Сергей Lowery MD Unavailable [phone] Allergies Active Allergy Reactions Criticality Noted [...] Type Department Care Team Description 03/25/2025 Telephone [facility] Ophthalmology [address] [place] [address] Mirta Aceves MD 02/19/2025 12:30 PM CDT Office Visit [facility] Orthopaedic Surgery [address] [place] [address] Nirav Murillo MD Aftercare following [...] on file 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 Gender Identity Not on file Sexual Orientation Not on file Last Filed Vital Signs Vital Sign Reading [...] (#1) 2025 Medical Devices Implanted Type Area Export Specialist Device Identifier Shelf Expiration Date Model / Serial / Lot Knee Replacement Right: Knee Insurance [facility] MEDICARE ADVANTAGE [facility] MEDIC[facility] Address: [address] [address] [place] [address] [facility] MEDICARE ADVANTAGE [facility] MEDIC[facility] Address: [address] [address] [place] [address] Care Teams Business Development Relationship Specialty Start Date End Date Lyle Hoffmann MD [address] [address] PCP - General Family Medicine 07/24/24 Сергей Lowery MD [address] [place] [address] Consulting Physician Ophthalmology 07/24/24
--- OUTSIDE RECORDS SUMMARY | 2025-05-06 01:18 | XMS_ITS | Clinical Summary ---
Author Organization [facility] Address [address] [facility] [address] [place] [address] Phone Care Team Providers Care Reserve Operator Name Role Phone Unavailable Primary Care Provider Unavailabl e Medications EPK-NCp-SwKx-Na Sulf-Na Asc-C (MOVIPREP) 100 GM Recon Soln Use as directed on the bottle for colonoscopy prep. 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
[2025-05-06 09:57] VITALS: BP 149/76; PULSE 84; RESP 18; TEMP 36.8; O2SAT 99; BMI 42.9
--- NOTE | 2025-05-06 10:00 | WPDANESEPPF ---
Anes - Initial Pre Proc Eval Procedure: Operation Date: 05/06/25 11:00 Proposed Procedures p Diagnostic Colonoscopy - Roddy Simmons MD Date/Time: 05/06/25 10:00 Surgeon: Roddy Simmons MD Pre Op Diagnosis: Iron deficiency Patient Data Age: 74 Gender: F Height: 1.65 m Weight: 117 kg Last Vital Signs Temp 36.8 C 05/06/25 09:57 Pulse 84 05/06/25 09:57 Resp 18 05/06/25 09:57 BP 149/76 H 05/06/25 09:57 Pulse Ox 99 05/06/25 09:57 O2 Del Method Room Air 05/06/25 09:57 Allergies Allergy/AdvReac Type Severity Reaction Status Date / Time lisinopril Allergy Severe Swelling Verified 05/06/25 09:56 of Lip/Tongue/Throat Home Medications ?Medication ?Instructions ?Recorded ?Confirmed ?Type trazodone 150 mg tablet 150 mg PO PRN PRN Insomnia 09/02/19 05/02/25 History ascorbic acid (vitamin C) 500 mg 500 mg PO DAILY 02/22/22 05/06/25 History tablet multivitamin 1 tablet PO DAILY 02/22/22 05/02/25 History tolterodine 4 mg capsule,extended 4 mg PO DAILY #90 caps 04/25/24 05/06/25 Rx release 24 hr (Detrol LA) alprazolam 0.25 mg tablet 0.25 mg PO BID PRN Anxiety 05/01/24 05/02/25 History cholecalciferol (vitamin D3) 250 250 mcg PO DAILY 05/01/24 05/06/25 History mcg (10,000 unit) capsule duloxetine 60 mg capsule,delayed 60 mg PO HS 05/01/24 05/06/25 History release glucosamine 500 um-covmahcpbh-lgl7 1 tablet PO DAILY 05/01/24 05/06/25 History 416.6 mg-C 20 mg-pawel 0.6 mg tablet lactobacillus combination no.4 3 3,000 mmu cells PO DAILY 05/01/24 05/06/25 History billion cell capsule (Probiotic) magnesium L-threonate 48 mg 48 mg PO DAILY 05/01/24 05/06/25 History magnesium (667 mg) capsule vitamin B complex 1 tablet PO DAILY 05/01/24 05/06/25 History acetaminophen 500 mg capsule 1,000 mg (2 x 500 mg) PO Q6H PRN 10/06/24 05/02/25 Rx pain #30 caps rivaroxaban 15 mg (42)-20 mg (9) See Rx Instructions PO .COMPLEX 10/06/24 05/06/25 Rx tablets in a starter pack (Xarelto #51 ea DVT-PE Treatment 30-Day Starter) Held on 05/02/25. Instructions: .Provider Order nystatin 100,000 unit/gram topical 1 applic topical BID PRN rash 04/03/25 05/02/25 History powder pantoprazole 40 mg tablet,delayed 40 mg PO DAILY 04/03/25 05/02/25 History release Patient hx anesthesia problems: none Family hx anesthesia problems: none Results Review: All pre-operative results and documents have been reviewed as part of the pre-operative evaluation. [facility] Past Medical History Medical History Epigastric pain H/O blood clots Screening mammogram, encounter for Encounter for special screening examination for neoplasm of cervix Septic arthritis in right knee had drains in legs ; Jun 2023 Patellar tendon strain Patellar tendon rupture CRP elevated Generalized osteoarthritis of multiple sites Inflammatory arthritis (~2018) Anxiety Dependence on other enabling machines and devices PAT (paroxysmal atrial tachycardia) Paroxysmal VT Essential hypertension KATARINA on CPAP Surgical History Surgical History History of hysteroscopy (05/10/24) Hysteroscopy with uterine curettings / Benign S/P total knee arthroplasty Family History Family History Father Hypertension Cerebrovascular accident Sibling Family history of coronary artery disease Family history of lymphoma Other Diabetes mellitus Family history of arthritis Family history of cardiovascular disease Family history of malignant neoplasm Social History Social History Social History: Has a boyfriend Smoking status: Never smoker Second hand tobacco smoke exposure: No Additional smoking assessment comments: DENIES ANY FORM OF TOBACCO USE Alcohol intake: current Alcohol use details: 3 times a month Substance use: never Substance use type: does not use Do You Feel Safe in your Home?: Yes Lack of Transportation: No Lack of Food: Never True Current Housing: I Have Housing Concerned About Future Housing: No Difficulty Paying Gas/Electric Bills: No Difficulty Paying for Meds: No Currently Unemployed: No Education: Bachelor's Degree Difficulty w/ Childcare or Family Care: No Living arrangements: with family Additional living arrangements comments: S.O. Occupation/Education: retired Gender identity (if verbalized by the patient): Female Sexual Orientation (if Verbalized by the Patient): Straight or Heterosexual Spiritual care concerns: No Anes - Eval Final PreProcedure Day of Procedure 05/06/25 10:00 Patient weight: morbidly obese Heart: regular rate and rhythm Lungs: clear to auscultation Airway: Mallampati scale class II Neurological: alert and oriented Last oral intake: >/= 8 hours ASA classification: III Emergent: no Anesthetic plan: proceed Anesthesia type and monitoring: general GIVS and standard monitoring Results Review: All pre-operative results and documents have been reviewed as part of the pre-operative evaluation. Informed Consent: The patient's anesthetic plan and its attendant risks and benefits were discussed with the patient/family/POA. Questions were solicited and answers provided to the satisfaction of the patient/family/POA.
[2025-05-06] MEDS: LACTATED RINGERS 1,000 ML 150 ML IV CONT (10:05)
--- NOTE | 2025-05-06 10:22 | PM.HPGS ---
History of Present Illness History of Present Illness Consent: Risks, benefits, and alternatives have been discussed and questions answered. Patient agrees to proceed with procedure. Chief complaint: Iron deficiency Narrative: Radha Mendenhall is a 74 year old female here for colonoscopy, last one about 7 years ago, she has mild JORDAN, recent egd only mild gastritis. Review of Systems Review of Systems: All systems reviewed & are unremarkable except as noted in HPI and below PMFSH Past Medical History Medical History (Updated 05/06/25 @ 10:23 by Roddy Simmons MD) Anemia Epigastric pain H/O blood clots Screening mammogram, encounter for Encounter for special screening examination for neoplasm of cervix Septic arthritis in right knee had drains in legs ; Jun 2023 Patellar tendon strain Patellar tendon rupture CRP elevated Generalized osteoarthritis of multiple sites Inflammatory arthritis (~2018) Anxiety Dependence on other enabling machines and devices PAT (paroxysmal atrial tachycardia) Paroxysmal VT Essential hypertension KATARINA on CPAP Surgical History Surgical History History of hysteroscopy (05/10/24) Hysteroscopy with uterine curettings / Benign S/P total knee arthroplasty Family History Family History Father Hypertension Cerebrovascular accident Sibling Family history of coronary artery disease Family history of lymphoma Other Diabetes mellitus Family history of arthritis Family history of cardiovascular disease Family history of malignant neoplasm Social History Social History Social History: Has a boyfriend Smoking status: Never smoker Second hand tobacco smoke exposure: No Additional smoking assessment comments: DENIES ANY FORM OF TOBACCO USE Alcohol intake: current Alcohol use details: 3 times a month Substance use: never Substance use type: does not use Do You Feel Safe in your Home?: Yes Lack of Transportation: No Lack of Food: Never True Current Housing: I Have Housing Concerned About Future Housing: No Difficulty Paying Gas/Electric Bills: No Difficulty Paying for Meds: No Currently Unemployed: No Education: Bachelor's Degree Difficulty w/ Childcare or Family Care: No Living arrangements: with family Additional living arrangements comments: S[employer]O. Occupation/Education: retired Gender identity (if verbalized by the patient): Female Sexual Orientation (if Verbalized by the Patient): Straight or Heterosexual Spiritual care concerns: No Meds Home Medications and Allergies Home Medications ?Medication ?Instructions ?Recorded ?Confirmed ?Type trazodone 150 mg tablet 150 mg PO PRN PRN Insomnia 09/02/19 05/02/25 History ascorbic acid (vitamin C) 500 mg 500 mg PO DAILY 02/22/22 05/06/25 History tablet multivitamin 1 tablet PO DAILY 02/22/22 05/02/25 History tolterodine 4 mg capsule,extended 4 mg PO DAILY #90 caps 04/25/24 05/06/25 Rx release 24 hr (Detrol LA) alprazolam 0.25 mg tablet 0.25 mg PO BID PRN Anxiety 05/01/24 05/02/25 History cholecalciferol (vitamin D3) 250 250 mcg PO DAILY 05/01/24 05/06/25 History mcg (10,000 unit) capsule duloxetine 60 mg capsule,delayed 60 mg PO HS 05/01/24 05/06/25 History release glucosamine 500 bt-[id number] 1 tablet PO DAILY 05/01/24 05/06/25 History 416.6 mg-C 20 mg-pawel 0.6 mg tablet lactobacillus combination no.4 3 3,000 mmu cells PO DAILY 05/01/24 05/06/25 History billion cell capsule (Probiotic) magnesium L-threonate 48 mg 48 mg PO DAILY 05/01/24 05/06/25 History magnesium (667 mg) capsule vitamin B complex 1 tablet PO DAILY 05/01/24 05/06/25 History acetaminophen 500 mg capsule 1,000 mg (2 x 500 mg) PO Q6H PRN 10/06/24 05/02/25 Rx pain #30 caps rivaroxaban 15 mg (42)-20 mg (9) See Rx Instructions PO .COMPLEX 10/06/24 05/06/25 Rx tablets in a starter pack (Xarelto #51 ea DVT-PE Treatment 30-Day Starter) Held on 05/02/25. Instructions: .Provider Order nystatin 100,000 unit/gram topical 1 applic topical BID PRN rash 04/03/25 05/02/25 History powder pantoprazole 40 mg tablet,delayed 40 mg PO DAILY 04/03/25 05/02/25 History release Allergies Allergy/AdvReac Type Severity Reaction Status Date / Time lisinopril Allergy Severe Swelling Verified 05/06/25 09:56 of Lip/Tongue/Throat Vital Signs Vital Signs - 24 hr 05/06/25 09:57 Temperature 98.2 F Pulse Rate 84 Respiratory Rate 18 Blood Pressure 149/76 H Pulse Oximetry 99 Oxygen Delivery Room Air Exam Const: General: comfortable and no acute distress HENMT: Face/Nose/Sinus: Normal nares present Eyes: General: appearance normal, both eyes and all related structures Resp: Auscultation: clear to auscultation bilaterally Cardio: Rate: regular rate Rhythm: regular rhythm GI: Inspection: non-distended GI Palp: Yes Soft to palpation Skin: General skin exam: normal color Extrem: General: normal to inspection Psych: Mental Status: mental status grossly normal Assessment and Plan Assessment and plan (1) Anemia: Code(s): D64.9 - Anemia, unspecified Status: Acute Assessment and Plan: colonoscopy
[2025-05-06 10:43] VITALS: BP 134/63; PULSE 69; RESP 27; O2SAT 99
[2025-05-06 10:53] VITALS: BP 123/71; PULSE 66; RESP 19; O2SAT 100
[2025-05-06 11:03] VITALS: BP 151/71; PULSE 67; RESP 30; O2SAT 100
== END 2025-05-06 11:20 | disposition home or self-care (01) ==
PROVIDERS: PCP Emergency Medicine; Referring Provider Emergency Medicine; Visit Provider Internal Medicine Gastroenterology
PROC: 0DJD8ZZ Inspection of Lower Intestinal Tract, Via Natural or Artificial Opening Endoscopic (ICD-10-PCS; CPT 45378; principal; 2025-05-06 11:00)
DX: Z12.11 Encounter for screening for malignant neoplasm of colon (principal); K57.30 Diverticulosis of large intestine without perforation or abscess without bleeding; D64.9 Anemia, unspecified; I10 Essential (primary) hypertension; F41.9 Anxiety disorder, unspecified; I47.19 Other supraventricular tachycardia; G47.33 Obstructive sleep apnea (adult) (pediatric); M15.0 Primary generalized (osteo)arthritis; M06.4 Inflammatory polyarthropathy; E66.01 Morbid (severe) obesity due to excess calories; Z68.41 Body mass index [BMI] 40.0-44.9, adult; Z79.01 Long term (current) use of anticoagulants; Z99.89 Dependence on other enabling machines and devices; Z98.890 Other specified postprocedural states; Z80.7 Family history of other malignant neoplasms of lymphoid, hematopoietic and related tissues; Z82.49 Family history of ischemic heart disease and other diseases of the circulatory system
CPT/HCPCS: G0105; J2003; J2704; J7120